=== PATIENT | female | born 1975 | race Caucasian/White ===

== ENCOUNTER 2023-02-10 20:38 | Inpatient (IN) | payer SELFPAY ==
[~2023-02-10] VITALS: Ht 165.1 cm; Wt 80.4 kg
[2023-02-10] MEDS ORDERED: TRM50T PO (20:49)
[2023-02-10] MEDS ORDERED: fentaNYL INJ 100 MCG/2 ML AMP IVP STA (20:57)
[2023-02-10] MEDS ORDERED: ONDANSETRON 4 MG/2 ML (SDV) Z0FRAN IV PRN (21:00)
[2023-02-10] MEDS ORDERED: PIPERACILLIN SODIUM/TAZOBACTAM 4.5 GM in NS (IVPB) 100 ML IV ONE (21:00)
[2023-02-10] MEDS ORDERED: LACTATED RINGERS 1,000 ML IV ONE ×3 (21:00→23:52)
[2023-02-10 21:06] LABS: BASOPHILS % (AUTO) 0 % (0-10); EOSINOPHILS # (AUTO) 0.1 10^3/uL (0.0-0.3); EOSINOPHILS % (AUTO) 0 % (0-10); HEMATOCRIT 34 % (35-52); HEMOGLOBIN 12.3 g/dL (11.5-16.0); LYMPHOCYTES # (AUTO) 1.7 10^3/uL (1.0-4.0); LYMPHOCYTES % (AUTO) 11 % (12-44); MEAN CORPUSCULAR HEMOGLOBIN 30 pg (25-34); MEAN CORPUSCULAR HGB CONC 36 g/dL (32-36); MEAN CORPUSCULAR VOLUME 83 fL (80-99); MEAN PLATELET VOLUME 10.5 fL (9.0-12.2); MONOCYTES # (AUTO) 1.1 10^3/uL (0.0-1.0); MONOCYTES % (AUTO) 8 % (0-12); NEUTROPHILS # (AUTO) 11.8 10^3/uL (1.8-7.8); NEUTROPHILS % (AUTO) 80 % (42-75); PLATELET COUNT 350 10^3/uL (130-400); WHITE BLOOD COUNT 14.8 10^3/uL (4.3-11.0)
--- NOTE | 2023-02-10 21:14 | Diagnostic Imaging Report ---
EXAMINATION: Chest 1 view. HISTORY: Short of breath. COMPARISON: None available. FINDINGS: The lungs are clear without edema or pneumonia. No pleural effusion or pneumothorax. Heart size is normal. IMPRESSION: Clear lungs. Dictated by: Dictated on workstation # [id number]
[2023-02-10] MEDS ORDERED: RT-ALBUTEROL/IPRATROPIUM 3 ML (DUONEB) VIAL INH ONE (21:15)
[2023-02-10 21:18] LABS: INR 1.1 (0.8-1.4); PROTHROMBIN TIME PATIENT 14.2 SEC (12.2-14.7)
--- NOTE | 2023-02-10 21:21 | ED Abdominal Pain ---
General Chief Complaint: Abdominal/GI Problems Stated Complaint: OBDOMINAL PAIN Nursing Triage Note: c/o left lower abdominal pain radiating to left lower back x1 week. Allergies and Home Medications Allergies Coded Allergies: No Known Drug Allergies (Unverified , 02/10/23) Patient Home Medication List Tramadol HCl (Tramadol HCl) 50 Mg Tablet, 50 MG PO Q4H PRN for PAIN, (Reported) Entered as Reported by: TOMMIE CARORLL on 02/10/232048 Last Action: New Order Past Wwumbzf-Iuvgwn-Mfxnjh Hx Patient Social History Tobacco Use?: Yes Substance use?: Yes Substance type: Marijuana Alcohol Use?: No Pt feels they are or have been: No Immunizations Up To Date First/Initial COVID19 Vaccinat: na Past Medical History Surgery/Hospitalization HX: diverticulitis, tendonitis, partial toe amputation. Last Menstrual Period: Jan 24, 2023 Physical Exam Vital Signs Vital Signs - First Documented 02/10/23 20:43 Temp 37.3 Pulse 145 Resp 22 B/P (MAP) 135/78 (97) Pulse Ox 99 O2 Delivery Room Air Capillary Refill : Less Than 3 Seconds Height/Weight/BMI Height: '" Weight: lbs. oz. kg; 26.00 BMI Method: Focused Exam Lactate Level 02/10/23 21:27: Lactic Acid Level 0.98 Lactic Acid Level Laboratory Tests Test 02/10/23 21:27 Lactic Acid Level 0.98 MMOL/L (0.50-2.00) Progress/Results/Core Measures Results/Orders Lab Results Laboratory Tests Test 02/10/23 21:00 02/10/23 21:27 02/10/23 22:20 Range/Units White Blood Count 14.8 H 4.3-11.0 10^3/uL Red Blood Count 4.07 3.80-5.11 10^6/uL Hemoglobin 12.3 11.5-16.0 g/dL Hematocrit 34 L 35-52 % Mean Corpuscular Volume 83 80-99 fL Mean Corpuscular Hemoglobin 30 25-34 pg Mean Corpuscular Hemoglobin Concent 36 32-36 g/dL Red Cell Distribution Width 12.2 10.0-14.5 % Platelet Count 350 130-400 10^3/uL Mean Platelet Volume 10.5 9.0-12.2 fL Immature Granulocyte % (Auto) 1 % Neutrophils (%) (Auto) 80 H 42-75 % Lymphocytes (%) (Auto) 11 L 12-44 % Monocytes (%) (Auto) 8 0-12 % Eosinophils (%) (Auto) 0 0-10 % Basophils (%) (Auto) 0 0-10 % Neutrophils # (Auto) 11.8 H 1.8-7.8 10^3/uL Lymphocytes # (Auto) 1.7 1.0-4.0 10^3/uL Monocytes # (Auto) 1.1 H 0.0-1.0 10^3/uL Eosinophils # (Auto) 0.1 0.0-0.3 10^3/uL Basophils # (Auto) 0.0 0.0-0.1 10^3/uL Immature Granulocyte # (Auto) 0.1 0.0-0.1 10^3/uL Prothrombin Time 14.2 12.2-14.7 SEC INR Comment 1.1 0.8-1.4 Activated Partial Thromboplast Time 33 24-35 SEC Sodium Level 131 L 135-145 MMOL/L Potassium Level 2.8 L 3.6-5.0 MMOL/L Chloride Level 98 98-107 MMOL/L Carbon Dioxide Level 17 L 21-32 MMOL/L Anion Gap 16 H 5-14 MMOL/L Blood Urea Nitrogen 8 7-18 MG/DL Creatinine 1.02 0.60-1.30 MG/DL Estimat Glomerular Filtration Rate 69 BUN/Creatinine Ratio 8 Glucose Level 124 H 70-105 MG/DL Calcium Level 9.4 8.5-10.1 MG/DL Corrected Calcium 9.5 8.5-10.1 MG/DL Magnesium Level 1.7 1.6-2.4 MG/DL Total Bilirubin 0.6 0.1-1.0 MG/DL Aspartate Amino Transf (AST/SGOT) 44 H 5-34 U/L Alanine Aminotransferase (ALT/SGPT) 56 H 0-55 U/L Alkaline Phosphatase 55 40-136 U/L Total Protein 8.0 6.4-8.2 GM/DL Albumin 3.9 3.2-4.5 GM/DL Amylase Level 39 25-125 U/L Lipase 28 8-78 U/L Serum Test, Qualitative NEGATIVE NEGATIVE Serum Alcohol < 10 <10 MG/DL Lactic Acid Level 0.98 0.50-2.00 MMOL/L Influenza Type A (RT-PCR) Not Detected Not Detecte Influenza Type B (RT-PCR) Not Detected Not Detecte SARS-CoV-2 RNA (RT-PCR) Not Detected Not Detecte Urine Color YELLOW Urine Clarity SL CLOUDY Urine pH 6.0 5-9 Urine Specific [place] <=1.005 1.016-1.022 Urine Protein NEGATIVE NEGATIVE Urine Glucose (UA) NEGATIVE NEGATIVE Urine Ketones NEGATIVE NEGATIVE Urine Nitrite NEGATIVE NEGATIVE Urine Bilirubin NEGATIVE NEGATIVE Urine Urobilinogen 0.2 < = 1.0 MG/DL Urine Leukocyte Esterase NEGATIVE NEGATIVE Urine RBC (Auto) TRACE-I H NEGATIVE Urine RBC 0-2 /HPF Urine WBC NONE /HPF Urine Squamous Epithelial Cells 2-5 /HPF Urine Crystals NONE /LPF Urine Bacteria TRACE /HPF Urine Casts NONE /LPF Urine Mucus NEGATIVE /LPF Urine Culture Indicated CULTURE PENDING Urine Opiates Screen NEGATIVE NEGATIVE Urine Oxycodone Screen NEGATIVE NEGATIVE Urine Methadone Screen NEGATIVE NEGATIVE Urine Propoxyphene Screen NEGATIVE NEGATIVE Urine Barbiturates Screen NEGATIVE NEGATIVE Ur Tricyclic Antidepressants Screen NEGATIVE NEGATIVE Urine Phencyclidine Screen NEGATIVE NEGATIVE Urine Amphetamines Screen NEGATIVE NEGATIVE Urine Methamphetamines Screen NEGATIVE NEGATIVE Urine Benzodiazepines Screen NEGATIVE NEGATIVE Urine Cocaine Screen NEGATIVE NEGATIVE Urine Cannabinoids Screen POSITIVE H NEGATIVE My Orders Orders - MATHEW REEDER DO Ed Iv/Invasive Line Start (02/10/23 20:55) Monitor-Rhythm Ecg Trace Only (02/10/23 20:55) Amylase (02/10/23 20:55) Hcg,Qualitative Serum (02/10/23 20:55) Lipase (02/10/23 20:55) Magnesium (02/10/23 20:55) Ed Iv/Invasive Line Start (02/10/23 20:55) Lactated Ringers (Lr 1000 Ml Iv Solution (02/10/23 21:00) Cbc With Automated Diff (02/10/23 20:55) Comprehensive Metabolic Panel (02/10/23 20:55) Blood Culture (02/10/23 20:55) Sputum Culture (02/10/23 20:55) Urinalysis (02/10/23 20:55) Urine Culture (02/10/23 20:55) Protime With Inr (02/10/23 20:55) Partial Thromboplastin Time (02/10/23 20:55) Chest 1 View, Ap/Pa Only (02/10/23 20:55) Ed Iv/Invasive Line Start (02/10/23 20:55) Ed Iv/Invasive Line Start (02/10/23 20:55) Vital Signs Adult Sepsis Patie Q15M (02/10/23 20:55) Ondansetron Injection (Zofran Injectio (02/10/23 21:00) O2 (02/10/23 20:55) Remove Rings In Anticipation O (02/10/23 20:55) Lactic Acid Analyzer (02/10/23 20:55) Piperacillin Sodium/Tazobactam (Zosyn Vi (02/10/23 21:00) Covid 19 Inhouse Test (02/10/23 20:55) Influenza A And B By Pcr (02/10/23 20:55) Isolation Central Supply Req (02/10/23 20:55) Ed Iv/Invasive Line Start (02/10/23 20:55) Lactated Ringers (Lr 1000 Ml Iv Solution (02/10/23 21:00) Fentanyl Inj (Sublimaze Injection) (02/10/23 20:57) Albuterol/Ipra Inhalation Soln (Duoneb I (02/10/23 21:15) Dexamethasone Injection (Decadron Injec (02/10/23 21:15) Rt Request For Service (02/10/23 21:02) Svn Small Volume Nebulizer (02/10/23 21:02) Alcohol (02/10/23 21:02) Drug Screen Stat (Urine) (02/10/23 21:02) Ct Abdomen/Pelvis W (02/10/23 21:38) Iohexol Injection (Omnipaque 350 Mg/Ml 1 (02/10/23 22:00) Sodium Chloride Flush (Catheter Flush Sy (02/10/23 22:00) Ns (Ivpb) (Sodium Chloride 0.9% Ivpb Bag (02/10/23 22:00) Morphine Injection (Morphine Injection (02/10/23 22:47) Medications Given in ED Current Medications Medications Dose Ordered Sig/Erika Route Start Time Stop Time Status Last Admin Dose Admin Albuterol/ Ipratropium 3 ml ONCE ONCE INH 02/10/23 21:15 02/10/23 21:16 DC 02/10/23 21:30 3 ML Dexamethasone Sodium Phosphate 20 mg ONCE ONCE IH 02/10/23 21:15 02/10/23 21:16 DC 02/10/23 21:30 20 MG Iohexol 100 ml ONCE ONCE IV 02/10/23 22:00 02/10/23 22:01 DC 02/10/23 21:58 80 ML Lactated Ringer's 1,000 ml @ 0 mls/hr Q0M ONCE IV 02/10/23 21:00 02/10/23 21:01 DC 02/10/23 21:20 1,000 MLS/HR Lactated Ringer's 1,000 ml @ 0 mls/hr Q0M ONCE IV 02/10/23 21:00 02/10/23 21:01 DC 02/10/23 21:20 1,000 MLS/HR Ondansetron HCl 4 mg PRN PRN IV 02/10/23 21:00 02/10/23 21:20 DC 02/10/23 21:19 4 MG Piperacillin Sod/ Tazobactam Sod 4.5 gm/Sodium Chloride 100 ml @ 200 mls/hr ONCE ONCE IV 02/10/23 21:00 02/10/23 21:29 DC 02/10/23 22:18 200 MLS/HR Sodium Chloride 10 ml NEEDED PRN IV 02/10/23 22:00 02/10/23 21:58 10 ML Sodium Chloride 100 ml ONCE ONCE IV 02/10/23 22:00 02/10/23 22:01 DC 02/10/23 21:58 80 ML Vital Signs/I&O 02/10/23 02/10/23 20:43 21:30 Temp 37.3 Pulse 145 Resp 22 B/P (MAP) 135/78 (97) Pulse Ox 99 98 O2 Delivery Room Air Room Air Blood Pressure Mean: 97 Diagnostic Imaging Comments CXR--PER RADIOLOGIST REPORT AT 2120 FINDINGS: The lungs are clear without edema or pneumonia. No pleural effusion or pneumothorax. Heart size is normal. IMPRESSION: Clear lungs. Reviewed: Reviewed by Me Departure Impression Primary Impression: Sepsis MATHEW REEDER DO Feb 10, 2023 21:21
[2023-02-10 21:25] LABS: ALBUMIN 3.9 GM/DL (3.2-4.5); POTASSIUM 2.8 MMOL/L (3.6-5.0)
[2023-02-10 21:26] LABS: CALCIUM 9.4 MG/DL (8.5-10.1)
[2023-02-10 21:29] LABS: BILIRUBIN,TOTAL 0.6 MG/DL (0.1-1.0)
[2023-02-10 21:31] LABS: CREATININE SERUM 1.02 MG/DL (0.60-1.30)
[2023-02-10 21:34] LABS: MAGNESIUM 1.7 MG/DL (1.6-2.4)
[2023-02-10] MEDS ORDERED: CATHETER FLUSH 10 ML SYR IV PRN (22:00)
[2023-02-10] MEDS ORDERED: NS 100 ML (IVPB) BAG IV ONE (22:00)
[2023-02-10] MEDS ORDERED: IOHEXOL 350 MG/ML 100 ML (OMNIPAQUE 350) VIAL IV ONE (22:00)
--- NOTE | 2023-02-10 22:06 | Diagnostic Imaging Report ---
EXAMINATION: CT abdomen and pelvis with intravenous contrast. TECHNIQUE: Multiple contiguous axial images were obtained through the abdomen and pelvis after the uneventful administration of intravenous contrast. All CT scans use one or more of the following dose optimizing techniques: automated exposure control, MA and/or KvP adjustment based on patient size and exam type or iterative reconstruction. HISTORY: Left lower quadrant pain COMPARISON: None available. FINDINGS: Limited views of the lower thorax are unremarkable. The liver is normal without focal lesion. There is no biliary ductal dilation. Gallbladder is normal. Pancreas is normal. Spleen is normal. Adrenal glands are normal. The kidneys are normal. There is no hydronephrosis. Urinary bladder is normal. There is diverticulitis of the sigmoid colon. There is a fluid and gas collection associated with the sigmoid colon wall measuring 3.2 x 4.6 cm in keeping with an abscess. Small amount of free fluid is present. No free intraperitoneal air. The remainder of the bowel is normal. No abdominal or pelvic lymphadenopathy. Aorta is normal in caliber without aneurysm. There are no suspicious osseus lesions. IMPRESSION: 1. Sigmoid diverticulitis with a 3.2 x 4.6 cm abscess adjacent to the inflamed bowel. Dictated by: Dictated on workstation # [id number]
[2023-02-10 22:34] LABS: BILIRUBIN,URINE NEGATIVE (NEGATIVE); CLARITY,URINE SL CLOUDY; COLOR,URINE YELLOW; GLUCOSE, URINE (UA) NEGATIVE (NEGATIVE); KETONES,URINE NEGATIVE (NEGATIVE); LEUKOCYTE ESTERASE ,URINE NEGATIVE (NEGATIVE); NITRITE,URINE NEGATIVE (NEGATIVE); PROTEIN,URINE NEGATIVE (NEGATIVE)
[2023-02-10 22:41] LABS: BACTERIA,URINE TRACE /HPF; RBC,URINE 0-2 /HPF
[2023-02-10] MEDS ORDERED: morphine INJ 10 MG/ML 1ML (SYR OR VIAL) IVP STA (22:47)
[2023-02-10 22:53] LABS: AMPHETAMINE SCREEN, URINE NEGATIVE (NEGATIVE); BARBITURATE SCREEN URINE NEGATIVE (NEGATIVE); BENZODIAZEPINES SCREEN URINE NEGATIVE (NEGATIVE); CANNABINOID SCREEN, URINE POSITIVE (NEGATIVE); COCAINE SCREEN URINE NEGATIVE (NEGATIVE); METHADONE STAT NEGATIVE (NEGATIVE); OPIATE SCREEN URINE NEGATIVE (NEGATIVE); OXYCODONE STAT NEGATIVE (NEGATIVE); PROPOXYPHENE STAT NEGATIVE (NEGATIVE); TRICYCLIC ANTIDEPRESSANTS SCRE NEGATIVE (NEGATIVE)
[2023-02-10] MEDS ORDERED: KCL 10 MEQ TAB (MICRO K) PO ONE (23:30)
[2023-02-10 23:36] VITALS: BP 124/67
[2023-02-11] VITALS (17 sets, daily range): BP systolic 99–138; BP diastolic 56–92
[2023-02-11] MEDS ORDERED: VANCOMYCIN 1500MG/300ML PREMIX 300 ML IV ONE (00:30)
[2023-02-11] MEDS: LACTATED RINGERS 1,000 ML IV SCH ×6 (00:37→20:13)
[2023-02-11] MEDS: morphine INJ 4 MG/ML 1 ML (VIAL/SYRINGE) IV PRN ×7 (02:48→22:34)
[2023-02-11] MEDS: PIPERACILLIN SODIUM/TAZOBACTAM 4.5 GM in NS (IVPB) 100 ML IV SCH ×3 (03:51→20:11)
[2023-02-11 05:49] LABS: BASOPHILS % (AUTO) 0 % (0-10); EOSINOPHILS % (AUTO) 0 % (0-10); HEMATOCRIT 28 % (35-52); LYMPHOCYTES # (AUTO) 0.7 10^3/uL (1.0-4.0); LYMPHOCYTES % (AUTO) 6 % (12-44); MEAN CORPUSCULAR HEMOGLOBIN 30 pg (25-34); MEAN CORPUSCULAR HGB CONC 35 g/dL (32-36); MEAN CORPUSCULAR VOLUME 85 fL (80-99); MONOCYTES # (AUTO) 0.6 10^3/uL (0.0-1.0); MONOCYTES % (AUTO) 5 % (0-12); NEUTROPHILS # (AUTO) 9.9 10^3/uL (1.8-7.8); NEUTROPHILS % (AUTO) 88 % (42-75); PLATELET COUNT 271 10^3/uL (130-400); WHITE BLOOD COUNT 11.3 10^3/uL (4.3-11.0)
[2023-02-11 06:07] LABS: ALBUMIN 2.9 GM/DL (3.2-4.5); BILIRUBIN,TOTAL 0.5 MG/DL (0.1-1.0); CALCIUM 8.6 MG/DL (8.5-10.1); CREATININE SERUM 0.79 MG/DL (0.60-1.30); POTASSIUM 4.1 MMOL/L (3.6-5.0); TOTAL PROTEIN 6.1 GM/DL (6.4-8.2)
[2023-02-11 06:40] LABS: LYMPHOCYTES % (MANUAL) 3 %; MONOCYTES % (MANUAL) 3 %; NEUTROPHILS % (MANUAL) 94 %
[2023-02-11 06:41] LABS: RBC MORPH NORMAL
--- NOTE | 2023-02-11 10:02 | History & Physical-Hospitalist ---
PAZ SANTANA 02/11/23 1002: History of Present Illness HPI/Chief Complaint Patient is a 48 year old female with history of diverticulosis and tendonitis w ho presented to the ED last night for LLQ abd pain radiating into her back. She reports being diagnosed with the flu on january 30 that caused her to be mostly bed ridden. She began to experience LLQ abd pain a week ago that has gradually worsened, She describes it as sharp in nature. She reports having a small BM yesterday with no blood. In the ED she was found to be tachycardic w/ mild leukocytosis, anion gap metabolic acidosis, hyponatrema, and hypokalemia. Toxicology was positive for canabinoids which patient endorses trying 2 weeks ago [address] [place] imaging in the ED revealed sigmoid diverticulitis w/ 3.2x4.6cm abscess adjacent to inflamed bowel. Source: patient, EMS Date Seen 02/11/23 Time Seen by a Provider: 08:55 [facility]mitting Physician: Karen Tracy DO Attending Physician: Karen Tracy DO Referring Physician Date of Admission Feb 10, 2023 at 23:18 Home Medications & Allergies Home Medications Reviewed patient Home Medication Reconciliation performed by pharmacy medication reconciliations property technician and/or nursing. Patients Allergies have been reviewed. Allergies Allergies Coded Allergies No Known Drug Allergies (Unverified02/10/23) Past Tdmdcby-Wxbyif-Jgoamm Hx Patient Social History Marrital Status: Tobacco Use?: No Tobacco type used: Cigarettes Smoking Status: Current Everyday Smoker Use of E-Cig and/or Vaping dev: No Substance use?: Yes Substance type: Marijuana Alcohol Use?: Yes Alcohol Frequency: Rarely Pt feels they are or have been: No Immunizations Up To Date First/Initial COVID19 Vaccinat: na Tetanus Booster (TDap): Unknown Current Status status: No Advance Directives: No Communicates: Verbally Primary Language: Finnish Preferred Spoken Language: Finnish Is interpretation needed?: No Implanted or Applied Medical D: None Past Medical History Surgeries: Orthopedic (Left 1st distal phalanx amputated as a child) Amputee (right 1st distal phalanx amputated as a child) Family Medical History Father: CAD, Melanoma Mother: Bipolar, CKD, Lung disease Review of Systems Constitutional: No chills, No fever EENTM: No hearing loss, No vision loss Respiratory: No cough, No dyspnea on exertion, No short of breath Cardiovascular: No chest pain, No edema Gastrointestinal: abdominal pain (LLQ), nausea, vomiting Genitourinary: No decreased output, No dysuria, No hematuria Musculoskeletal: back pain, other (Hx tendonitis in arms/hands) Skin: no symptoms reported Psychiatric/Neurological: No Symptoms Reported Physical Exam Physical Exam Vital Signs Vital Signs - First Documented 02/10/23 20:43 Temp 37.3 Pulse 145 Resp 22 B/P (MAP) 135/78 (97) Pulse Ox 99 O2 Delivery Room Air Capillary Refill : Less Than 3 Seconds Height, Weight, BMI Height: '" Weight: lbs. oz. kg; 26.19 BMI Method: General Appearance: No Apparent Distress, WD/WN, Other Eyes: Bilateral Eye PERRL, Bilateral Eye EOMI HEENT: PERRL/EOMI, Pharynx Normal, Moist Mucous Membranes Neck: Non Tender, Supple Respiratory: Lungs Clear, Normal Breath Sounds, No Accessory Muscle Use, No Respiratory Distress Cardiovascular: Regular Rate, Rhythm, No Murmur, Normal Peripheral Pulses Gastrointestinal: Normal Bowel Sounds, Other (Significant LLQ abd pain with rebound tenderness. Abd feels firm, particularly in LLQ. Not overly tender in other quadrants.) Back: Normal Inspection Extremity: Normal Capillary Refill, Non Tender, No Calf Tenderness Neurologic/Psychiatric: Alert, Oriented x3, No Motor/Sensory Deficits Skin: Normal Color, Warm/Dry Lymphatic: No Adenopathy Results Results/Procedures Labs Laboratory Tests 02/10/23 21:00 02/11/23 05:09 Patient resulted labs reviewed. Imaging NAME: JATINDER LINO [facility] REC#: [id number] PT STATUS: REG ER : 1975 PHYSICIAN: MATHEW REEDER DO ADMIT DATE: 02/10/23/ER Signed Date of Exam:02/10/23 CHEST 1 VIEW, AP/PA ONLY EXAMINATION: Chest 1 view. HISTORY: Short of breath. COMPARISON: None available. FINDINGS: The lungs are clear without edema or pneumonia. No pleural effusion or pneumothorax. Heart size is normal. IMPRESSION: Clear lungs. Dictated by: Dictated on workstation # [id number] Dict: 02/10/232109 Trans: 02/10/232206 [facility] [id number] Interpreted by: FLORINA MOTLEY MD Electronically signed by: FLORINA MOTLEY MD 02/10/232206 NAME: JATINDER LINO [facility] REC#: [id number] PT STATUS: REG ER : 1975 PHYSICIAN: MATHEW REEDER DO ADMIT DATE: 02/10/23/ER Signed Date of Exam:02/10/23 CT ABDOMEN/PELVIS W EXAMINATION: CT abdomen and pelvis with intravenous contrast. TECHNIQUE: Multiple contiguous axial images were obtained through the abdomen and pelvis after the uneventful administration of intravenous contrast. All CT scans use one or more of the following dose optimizing techniques: automated exposure control, MA and/or KvP adjustment based on patient size and exam type or iterative reconstruction. HISTORY: Left lower quadrant pain COMPARISON: None available. FINDINGS: Limited views of the lower thorax are unremarkable. The liver is normal without focal lesion. There is no biliary ductal dilation. Gallbladder is normal. Pancreas is normal. Spleen is normal. Adrenal glands are normal. The kidneys are normal. There is no hydronephrosis. Urinary bladder is normal. There is diverticulitis of the sigmoid colon. There is a fluid and gas collection associated with the sigmoid colon wall measuring 3.2 x 4.6 cm in keeping with an abscess. Small amount of free fluid is present. No free intraperitoneal air. The remainder of the bowel is normal. No abdominal or pelvic lymphadenopathy. Aorta is normal in caliber without aneurysm. There are no suspicious osseus lesions. IMPRESSION: 1. Sigmoid diverticulitis with a 3.2 x 4.6 cm abscess adjacent to the inflamed bowel. Dictated by: Dictated on workstation # [id number] Dict: 02/10/232202 Trans: 02/10/232203 [facility] [id number] Interpreted by: FLORINA MOTLEY MD Electronically signed by: FLORINA MOTLEY MD 02/10/232203 Assessment/Plan Admission Diagnosis Sepsis/Diverticulosis w/ abscess Assessment and Plan Sepsis 2nd to diverticulitis w/ abscess -Pt met SIRS criteria with tachycardia, leukocytosis, and suspsected source of infection -02/10 CT revealed sigmoi diverticulitis with 3.2x4.6cm abscess adjacent to inflamed bowel. -Vanc & Zosyn. NPO. Control Pain. Consult surgery. Metabolic acidosis w/ high anion gap -AG on admission 16. Improved to 11 this morning following abx and IVF. -Likely secondary to N/V and dehydration prior to admission. Improved at this time. Hyponatremia -Improved after IVF. Monitor Hypokalemia -2.8 on admission. 4.1 after treatment with protocol. Diet: as tolerated DVT Proph: lovenox KAREN TRACY DO 02/12/23 0622: Past Mmoqmyt-Swkili-Nvljfo Hx Patient Social History Marrital Status: Review of Systems Gastrointestinal: abdominal pain (LLQ) Physical Exam Physical Exam General Appearance: Mild Distress, Other Assessment/Plan Admission Diagnosis Admission Status: Inpatient Order (span 2 midnights) Reason for Inpatient Admission: Diverticulitis Supervisory-Addendum Brief Verification & Attestation Participated in pt care: history, MDM, physical Personally performed: exam, history, MDM, supervision of care Care discussed with: Medical Student Procedures: n/a Results interpretation: Verified all documentation Verification and Attestation of Medical Student E/M Service A medical student performed and documented this service in my presence. I r eviewed and verified all information documented by the medical student and made modifications to such information, when appropriate. I personally performed the physical exam and medical decision making. Karen Tracy, Feb 12, 2023,06:22 PAZ SANTANA Feb 11, 2023 10:02 KAREN TRACY DO Feb 12, 2023 06:22
--- NOTE | 2023-02-11 10:41 | Consultation - Surgery ---
History of Present Illness History of Present Illness Patient Consulted On(amna/time) 02/11/23 10:32 Time Seen by Provider: 09:33 History of Present Illness Surgery asked to consult regarding perforated diverticulitis. HPI per IM: Patient is a 48 year old female with history of diverticulosis and tendonitis who presented to the ED last night for LLQ abd pain radiating into her back. She reports being diagnosed with the flu on january 30 that caused her to be mostly bed ridden. She began to experience LLQ abd pain a week ago that has gradually worsened, She describes it as sharp in nature. She reports having a small BM yesterday with no blood. In the ED she was found to be tachycardic w/ mild leukocytosis, anion gap metabolic acidosis, hyponatrema, and hypokalemia. Toxicology was positive for canabinoids which patient endorses trying 2 weeks ago in [place]. CT imaging in the ED revealed sigmoid diverticulitis w/ 3.2x4.6cm abscess adjacent to inflamed bowel. When I saw pt she still was in some pain, but states it is better. She states this all started about 6 yrs ago with an attack of Diverticulitis and she wound up in the hospital. She states that since then she has had 3-4 attacks per year which usually consists of pain and then she goes on a liquid diet for 3 days. She states she tries to change her diet little bit more (avoid red meat) and she just slows down/does less work and it usually goes away. She states this time the pain started in December and this basically has never gotten better since. It actually got worse on her birthday which I believe was [birth year]. She described severe pain, could not eat, could not keep anything down. She states she was trying to work through the pain; she has a very big fear of doctors and did not want to go to the hospital and this is what kept her away. Finally the pain was so bad that she came in last night. She states the pain is in the midline to left lower quadrant it does not all over the abdomen it is slightly better since she came in with the pain medications. Allergies and Home Medications Allergies Coded Allergies: No Known Drug Allergies (Unverified , 02/10/23) Patient Home Medication List Home Medication List Reviewed: Yes Tramadol HCl (Tramadol HCl) 50 Mg Tablet, 50 MG PO Q4H PRN for PAIN, (Reported) Entered as Reported by: TOMMIE CARROLL on 02/10/232048 Last Action: New Order Past Bnnczem-Pdsaro-Ignalx Hx Patient Social History Smoking Status: Current Everyday Smoker (at least 1 ppd since she was 11) Alcohol Use?: Yes (very rare, "I usually don't finish the drink") Substance type: Marijuana Have you traveled recently?: No Surgeries History of Surgeries: Yes Surgeries: Orthopedic (Left 1st distal phalanx amputated as a child), Tubal Ligation Respiratory History of Respiratory Disorde: No Cardiovascular History of Cardiac Disorders: No Neurological History of Neurological Disord: No Genitourinary History of Genitourinary Disor: No Gastrointestinal History of Gastrointestinal Di: Yes (Diverticulitis) Musculoskeletal History of Musculoskeletal Dis: Yes Musculoskeletal Disorders: Amputee (right 1st distal phalanx amputated as a child) Endocrine History of Endocrine Disorders: No HEENT History of HEENT Disorders: No Loss of Vision: Denies Hearing Impairment: Denies Cancer History of Cancer: No Psychosocial History of Psychiatric Problem: No Family Medical History Significant Family History: Psychiatric Problems (Mother was bipolar) Review of Systems-General Constitutional: fever, malaise, weakness EENTM: No blurred vision, No double vision, No mouth swelling, No epistaxis Respiratory: No cough, No dyspnea on exertion Cardiovascular: No chest pain, No palpitations Gastrointestinal: abdominal pain; No jaundice; loss of appetite, nausea, vomiting Genitourinary: No dysuria, No frequency, No hematuria Musculoskeletal: No joint swelling, No muscle pain, No muscle stiffness Skin: No change in color, No change in hair/nails Psychiatric/Neurological: Anxiety; Denies Depressed, Denies Seizure, Denies Tremors Physical Exam-General Problems Physical Exam Vital Signs Vital Signs - First Documented 02/10/23 20:43 Temp 37.3 Pulse 145 Resp 22 B/P (MAP) 135/78 (97) Pulse Ox 99 O2 Delivery Room Air Capillary Refill : Less Than 3 Seconds General Appearance: WD/WN, mild distress (secondary to anxiety and pain) Eyes: Bilateral Eye PERRL, Bilateral Eye EOMI HEENT: pharynx normal; No scleral icterus (R), No scleral icterus (L) Neck: non-tender, supple Respiratory: chest non-tender, lungs clear, normal breath sounds, no respiratory distress, no accessory muscle use Cardiovascular: regular rate, rhythm, no murmur Gastrointestinal: soft, no organomegaly, guarding (voluntary in LLQ and suprapubic), tenderness (LLQ), hernia (small UH), other (pt does not have diffuse peritonitis) Rectal: deferred Back: no CVA tenderness, no vertebral tenderness Extremities: non-tender, no pedal edema, no calf tenderness Neurologic/Psychiatric: provider relations advocate II-XII nml as tested, no motor/sensory deficits, alert, oriented x 3, other (anxious "because I don't like doctors or the hospital") Skin: normal color, warm/dry Lymphatic: no adenopathy (neck, axilla or groin) Data Review Labs Laboratory Tests 02/10/23 21:00: White Blood Count 14.8H, Red Blood Count 4.07, Hemoglobin 12.3, Hematocrit 34L, Mean Corpuscular Volume 83, Mean Corpuscular Hemoglobin 30, Mean Corpuscular Hemoglobin Concent 36, Red Cell Distribution Width 12.2, Platelet Count 350, Mean Platelet Volume 10.5, Immature Granulocyte % (Auto) 1, Neutrophils (%) (Auto) 80H, Lymphocytes (%) (Auto) 11L, Monocytes (%) (Auto) 8, Eosinophils (%) (Auto) 0, Basophils (%) (Auto) 0, Neutrophils # (Auto) 11.8H, Lymphocytes # (Auto) 1.7, Monocytes # (Auto) 1.1H, Eosinophils # (Auto) 0.1, Basophils # (Auto) 0.0, Immature Granulocyte # (Auto) 0.1, Prothrombin Time 14.2, INR Comment 1.1, Activated Partial Thromboplast Time 33, Sodium Level 131L, Potassium Level 2.8L, Chloride Level 98, Carbon Dioxide Level 17L, Anion Gap 16H , Blood Urea Nitrogen 8, Creatinine 1.02, Estimat Glomerular Filtration Rate 69, BUN/Creatinine Ratio 8, Glucose Level 124H, Calcium Level 9.4, Corrected Calcium 9.5, Magnesium Level 1.7, Total Bilirubin 0.6, Aspartate Amino Transf (AST/SGOT) 44H, Alanine Aminotransferase (ALT/SGPT) 56H, Alkaline Phosphatase 55, Total Protein 8.0, Albumin 3.9, Amylase Level 39, Lipase 28, Serum Test, Qualitative NEGATIVE, Serum Alcohol < 10 4/6/23 21:27: Lactic Acid Level 0.98, Influenza Type A (RT-PCR) Not Detected, Influenza Type B (RT-PCR) Not Detected, SARS-CoV-2 RNA (RT-PCR) Not Detected 02/10/23 22:20: Urine Color YELLOW, Urine Clarity SL CLOUDY, Urine pH 6.0, Urine Specific Bozman <=1.005, Urine Protein NEGATIVE, Urine Glucose (UA) NEGATIVE, Urine Ketones NEGATIVE, Urine Nitrite NEGATIVE, Urine Bilirubin NEGATIVE, Urine Urobilinogen 0.2, Urine Leukocyte Esterase NEGATIVE, Urine RBC (Auto) TRACE-IH, Urine RBC 0-2, Urine WBC NONE, Urine Squamous Epithelial Cells 2-5, Urine Crystals NONE, Urine Bacteria TRACE, Urine Casts NONE, Urine Mucus NEGATIVE, Urine Culture Indicated CULTURE PENDING, Urine Opiates Screen NEGATIVE, Urine Oxycodone Screen NEGATIVE, Urine Methadone Screen NEGATIVE, Urine Propoxyphene Screen NEGATIVE, Urine Barbiturates Screen NEGATIVE, Ur Tricyclic Antidepressants Screen NEGATIVE, Urine Phencyclidine Screen NEGATIVE, Urine Amphetamines Screen NEGATIVE, Urine Methamphetamines Screen NEGATIVE, Urine Benzodiazepines Screen NEGATIVE, Urine Cocaine Screen NEGATIVE, Urine Cannabinoids Screen POSITIVEH 02/11/23 05:09: White Blood Count 11.3H, Red Blood Count 3.32L, Hemoglobin 10.0L, Hematocrit 28L , Mean Corpuscular Volume 85, Mean Corpuscular Hemoglobin 30, Mean Corpuscular Hemoglobin Concent 35, Red Cell Distribution Width 12.4, Platelet Count 271, Mean Platelet Volume 11.0, Immature Granulocyte % (Auto) 1, Neutrophils (%) (Auto) 88H, Lymphocytes (%) (Auto) 6L, Monocytes (%) (Auto) 5, Eosinophils (%) (Auto) 0, Basophils (%) (Auto) 0, Neutrophils # (Auto) 9.9H, Lymphocytes # (Auto) 0.7L, Monocytes # (Auto) 0.6, Eosinophils # (Auto) 0.0, Basophils # (Auto) 0.0, Immature Granulocyte # (Auto) 0.1, Sodium Level 140, Potassium Level 4.1, Chloride Level 109H, Carbon Dioxide Level 20L, Anion Gap 11, Blood Urea Nitrogen 7, Creatinine 0.79, Estimat Glomerular Filtration Rate 93, BUN/Creatinine Ratio 9, Glucose Level 159H, Calcium Level 8.6, Corrected Calcium 9.5, Total Bilirubin 0.5, Aspartate Amino Transf (AST/SGOT) 32, Alanine Aminotransferase (ALT/SGPT) 45, Alkaline Phosphatase 45, Total Protein 6.1L, Albumin 2.9L, Neutrophils % (Manual) 94, Lymphocytes % (Manual) 3, Monocytes % (Manual) 3, Blood Morphology Comment NORMAL Radiology Date of Exam:02/10/23 CT ABDOMEN/PELVIS W EXAMINATION: CT abdomen and pelvis with intravenous contrast. TECHNIQUE: Multiple contiguous axial images were obtained through the abdomen and pelvis after the uneventful administration of intravenous contrast. All CT scans use one or more of the following dose optimizing techniques: automated exposure control, MA and/or KvP adjustment based on patient size and exam type or iterative reconstruction. HISTORY: Left lower quadrant pain COMPARISON: None available. FINDINGS: Limited views of the lower thorax are unremarkable. The liver is normal without focal lesion. There is no biliary ductal dilation. Gallbladder is normal. Pancreas is normal. Spleen is normal. Adrenal glands are normal. The kidneys are normal. There is no hydronephrosis. Urinary bladder is normal. There is diverticulitis of the sigmoid colon. There is a fluid and gas collection associated with the sigmoid colon wall measuring 3.2 x 4.6 cm in keeping with an abscess. Small amount of free fluid is present. No free intraperitoneal air. The remainder of the bowel is normal. No abdominal or pelvic lymphadenopathy. Aorta is normal in caliber without aneurysm. There are no suspicious osseus lesions. IMPRESSION: 1. Sigmoid diverticulitis with a 3.2 x 4.6 cm abscess adjacent to the inflamed bowel. Dictated by: Dictated on workstation # [id number] Dict: 02/10/232202 Trans: 02/10/232203 [facility] [id number] Interpreted by: FLORINA MOTLEY MD Electronically signed by: FLORINA MOTLEY MD 02/10/232203 Assessment/Plan Assessment/Plan Assessment/Plan Perforated Diverticulitis Mild Anemia Hypokalemia - resolved Hyponatremia - resolved Hyperchloremia I spent about 30 minutes last night talking to Dr. Nieto regarding this patient's case and going over this CAT scan at that time. This morning I spent about 30 minutes in total discussing with patient diverticulitisl normal course, causes and surgery. A one stage versus two-stage, basically colostomy versus colon resection and primary anastomosis. I also spoke to Dr. Torrez; radiology, to coordinate her care and get her a CT-guided drainage of this abscess. Basically when I talked to the patient, I told her we are trying to avoid surgery now also because if she had it now she would need a colostomy. Instead we will try to get it drained and then hopefully she gets better. She will be n.p.o., IV fluids, IV antibiotics, pain control, antiemetics as needed and hopefully we can get her out of the hospital in a few days. She will not be able to eat for at least today and tomorrow and then will advance the diet slowly. If we get her out of the hospital she can have a 1 [address] surgery [address] road. I also discussed her care with Dr. Marie. I believe her electrolyte abnormalities are just from dehydration and the vomiting; these will resolve on their own, if she needs any replacements we can do that. JUSTIN MAN DO Feb 11, 2023 10:41
[2023-02-11] MEDS ORDERED: NS IV 1000 ML 1,000 ML IV STA (11:31)
[2023-02-11] MEDS: VANCOMYCIN 1 GM/NS 250 ML IVPB IV SCH ×2 (11:39)
[2023-02-11] MEDS ORDERED: fentaNYL INJ 100 MCG/2 ML AMP IVP ONE (11:45)
[2023-02-11] MEDS ORDERED: MIDAZOLAM 2 MG/2 ML (VERSED) VIAL IVP ONE (11:45)
[2023-02-11] MEDS ORDERED: LIDOCAINE 1% INJ 10 ML VIAL INJ ONE (11:45)
[2023-02-11] MEDS: ONDANSETRON 4 MG/2 ML (SDV) Z0FRAN IV PRN (13:40)
--- NOTE | 2023-02-11 15:33 | Diagnostic Imaging Report ---
INDICATION: ABDOMINAL ABSCESS TECHNIQUE: All CT scans use one or more of the following dose optimizing techniques: automated exposure control, MA and/or KvP adjustment based on patient size and exam type or iterative reconstruction. Patient brought to the CT suite and placed on table in the supine position. Axial imaging through the abdomen and pelvis was performed to evaluate appropriate entry site. Left lower quadrant was then prepped and draped in usual sterile fashion. The procedure was performed utilizing conscious sedation with radiology nursing and constant monitoring. Patient was given a total of 50 mcg of fentanyl intravenously. Total procedure time is 8 minutes. Small amount of 1% lidocaine was utilized for local anesthesia. The left lower quadrant pelvic abscess was percutaneously accessed using a Swift Endeavoreh needle. This was exchanged over an 035 guidewire. A 6-Burmese, 8-Burmese and 10-Burmese dilators were utilized to dilate the tract. Next, 10.5-Burmese all-purpose pigtail drain was advanced over the wire and formed in the fluid collection in the left lower quadrant. The interstiffener as well as guidewire were removed. The pigtail was formed. Purulent material was aspirated. The catheter was affixed to the patient's skin and placed to a jessica drain. The patient tolerated the procedure well and left Department in stable condition. IMPRESSION: Successful CT-guided all-purpose drain placement into the left lower quadrant abscess, utilizing conscious sedation. Dictated by: Dictated on workstation # [id number]
[2023-02-11] MEDS: ACETAMINOPHEN 500 MG TAB (TYLENOL) PO PRN (16:44)
[2023-02-12] MEDS: VANCOMYCIN 1 GM/NS 250 ML IVPB IV SCH ×4 (00:31→12:50)
[2023-02-12 03:43] VITALS: BP 108/64
[2023-02-12] MEDS: PIPERACILLIN SODIUM/TAZOBACTAM 4.5 GM in NS (IVPB) 100 ML IV SCH ×3 (03:49→19:43)
[2023-02-12] MEDS: morphine INJ 4 MG/ML 1 ML (VIAL/SYRINGE) IV PRN ×5 (03:49→22:13)
[2023-02-12 05:32] LABS: BASOPHILS % (AUTO) 0 % (0-10); EOSINOPHILS % (AUTO) 0 % (0-10); HEMATOCRIT 29 % (35-52); LYMPHOCYTES % (AUTO) 8 % (12-44); MEAN CORPUSCULAR HEMOGLOBIN 31 pg (25-34); MEAN CORPUSCULAR HGB CONC 35 g/dL (32-36); MEAN CORPUSCULAR VOLUME 87 fL (80-99); MEAN PLATELET VOLUME 10.6 fL (9.0-12.2); MONOCYTES # (AUTO) 0.4 10^3/uL (0.0-1.0); MONOCYTES % (AUTO) 3 % (0-12); NEUTROPHILS # (AUTO) 11.2 10^3/uL (1.8-7.8); NEUTROPHILS % (AUTO) 88 % (42-75); PLATELET COUNT 295 10^3/uL (130-400); WHITE BLOOD COUNT 12.8 10^3/uL (4.3-11.0)
[2023-02-12 05:51] LABS: ALBUMIN 2.7 GM/DL (3.2-4.5)
[2023-02-12] MEDS: LACTATED RINGERS 1,000 ML IV SCH ×3 (05:53→15:41)
[2023-02-12 05:54] LABS: TOTAL PROTEIN 5.9 GM/DL (6.4-8.2)
[2023-02-12 05:55] LABS: BILIRUBIN,TOTAL 0.6 MG/DL (0.1-1.0)
[2023-02-12 05:57] LABS: CREATININE SERUM 0.98 MG/DL (0.60-1.30)
--- NOTE | 2023-02-12 07:19 | Progress Note - Hospitalist ---
Subjective HPI/CC On Admission Date Seen by Provider: Feb 12, 2023 Time Seen by Provider: 11:00 Patient is a 48 year old female with history of diverticulosis and tendonitis who presented to the ED last night for LLQ abd pain radiating into her back. She reports being diagnosed with the flu on january 30 that caused her to be mostly bed ridden. She began to experience LLQ abd pain a week ago that has gradually worsened, She describes it as sharp in nature. She reports having a small BM yesterday with no blood. In the ED she was found to be tachycardic w/ mild leukocytosis, anion gap metabolic acidosis, hyponatrema, and hypokalemia. Toxicology was positive for canabinoids which patient endorses trying 2 weeks ago in [place]. CT imaging in the ED revealed sigmoid diverticulitis w/ 3.2x4.6cm abscess adjacent to inflamed bowel. Subjective/Events-last exam Pain is improved s/p CT guided drainage done yesterday No nausea Improved overall Review of Systems General: Fatigue, Malaise Focused Exam Lactate Level 02/10/23 21:27: Lactic Acid Level 0.98 Objective Exam Vital Signs Vital Signs Date Time Temp Pulse Resp B/P (MAP) Pulse Ox O2 Delivery O2 Flow Rate FiO2 02/12/23 20:26 Room Air 02/12/23 19:32 36.5 94 18 104/68 (80) 93 02/12/23 14:39 0.00 Capillary Refill : Less Than 3 Seconds General Appearance: No Apparent Distress, WD/WN, Chronically ill Respiratory: Lungs Clear, Normal Breath Sounds Cardiovascular: Regular Rate, Rhythm Gastrointestinal: Tenderness, Other (drain in place) Results/Procedures Lab Laboratory Tests 02/12/23 05:00 Patient resulted labs reviewed. Assessment/Plan Assessment and Plan Assess & Plan/Chief Complaint Sepsis 2nd to diverticulitis w/ abscess -Pt met SIRS criteria with tachycardia, leukocytosis, and suspsected source of infection -02/10 CT revealed sigmoi diverticulitis with 3.2x4.6cm abscess adjacent to inflamed bowel. s/p drainage CT guided POD # 1 -Vanc & Zosyn. NPO. Control Pain. Consult surgery. Metabolic acidosis w/ high anion gap -AG on admission 16. Improved to 11 this morning following abx and IVF. -Likely secondary to N/V and dehydration prior to admission. Improved at this time. Hyponatremia -Improved after IVF. Monitor Hypokalemia -2.8 on admission. 4.1 after treatment with protocol. Diet: as tolerated DVT Proph: ALETHEA Faulkner DO Feb 12, 2023 07:19
--- NOTE | 2023-02-12 07:35 | Progress Note - Surgery ---
DONELLJFCONSTANTINE Alejandro 02/12/23 0735: Subjective Date Seen by a Provider: Feb 12, 2023 Time Seen by a Provider: 06:48 Subjective/Events-last exam Pt is resting comfortably in bed. Pt reports improvement of abd pain today, rating it a 2/10. No signs of peritonitis on physical exam. Pt feels like she is getting adequate pain control on current pain medication. Pt does note that she feels "puffy" and slightly bloated today, minimal abd distention on exam. Pt denies BM today or yesterday. Tolerating clears without nausea or vomiting. WBC slightly increased from yesterday at 12.8 from 11.3. Pt is currently afebrile but was febrile yesterday afternoon for about an hour. Pt reports worsening of productive cough and SOB today. Pt notes that SOB and cough started ~1 week ago when she was diagnosed with the flu. Pt notes breathing treatment in ED helped relieve symptoms before. Able to ambulate to bathroom by self and void without issue. Drain placed yesterday by radiology, had 50cc of dark red brown fluid in bag today. Scant output overnight, per nurse. Abscess culture grew E Coli, will continue current antibiotics regimen. Pt denies nausea, vomiting, chills, night sweats, hematuria, and dysuria. Review of Systems General: No Chills, No Night Sweats HEENT: No Head Aches, No Eye Pain Pulmonary: Dyspnea (worse), Cough (productive; worse) Cardiovascular: No: Chest Pain, Palpitations Gastrointestinal: Abdominal Pain (improved); No: Nausea, Vomiting Genitourinary: No Dysuria, No Hematuria Musculoskeletal: No: neck pain, shoulder pain Neurological: No: Weakness, Numbness Focused Exam Lactate Level 02/10/23 21:27: Lactic Acid Level 0.98 Objective Exam Vital Signs Date Time Temp Pulse Resp B/P (MAP) Pulse Ox O2 Delivery O2 Flow Rate FiO2 02/12/23 03:43 37.3 98 18 108/64 (79) 92 Room Air 02/11/23 23:38 36.8 104 18 104/56 (72) 94 Room Air 02/11/23 20:09 37.1 96 16 106/56 (73) 95 Room Air 02/11/23 20:00 Room Air 02/11/23 19:26 37.3 103 16 99/65 (76) 93 Room Air 02/11/23 16:44 38.7 02/11/23 16:27 38.7 121 19 132/77 (95) 92 Room Air 02/11/23 12:15 104 14 131/89 (103) 99 Room Air 02/11/23 12:10 105 14 134/92 (106) 99 Room Air 02/11/23 12:05 89 16 125/79 (94) 99 Room Air 02/11/23 12:00 95 16 120/74 (89) 99 Room Air 02/11/23 11:50 95 18 120/81 (94) 97 Room Air 02/11/23 11:25 37.0 106 20 138/89 (105) 97 Room Air 02/11/23 08:00 Room Air I & O 02/12/23 07:00 Intake Total 980 ml Output Total 980 ml Balance 0 ml Capillary Refill : Less Than 3 Seconds General Appearance: No Apparent Distress, WD/WN HEENT: PERRL/EOMI, Moist Mucous Membranes Neck: Non Tender, Supple Respiratory: No Accessory Muscle Use, No Respiratory Distress, Wheezing (diffuse inspiratory wheexing B/L; slight decreased lung sound R mid and base) Cardiovascular: No Gallop, No Murmur, Normal Peripheral Pulses, Tachycardia Peripheral Pulses: 2+ Dorsalis Pedis (R), 2+ Left Dors-Pedis (L) Gastrointestinal: soft, no organomegaly, distended (minimal), tenderness (lower quadrants; worse suprapubic and LLQ), hernia (small UH), other (pt does not show signs of diffuse peritonitis; drain in place LLQ) Extremity: No Calf Tenderness, No Pedal Edema Neurologic/Psychiatric: Alert, Oriented x3 Skin: Normal Color, Warm/Dry Lymphatic: No Adenopathy Results Lab Laboratory Tests 02/12/23 05:00: White Blood Count 12.8H, Red Blood Count 3.27L, Hemoglobin 10.0L, Hematocrit 29L , Mean Corpuscular Volume 87, Mean Corpuscular Hemoglobin 31, Mean Corpuscular Hemoglobin Concent 35, Red Cell Distribution Width 12.7, Platelet Count 295, Mean Platelet Volume 10.6, Immature Granulocyte % (Auto) 1, Neutrophils (%) (Auto) 88H, Lymphocytes (%) (Auto) 8L, Monocytes (%) (Auto) 3, Eosinophils (%) (Auto) 0, Basophils (%) (Auto) 0, Neutrophils # (Auto) 11.2H, Lymphocytes # (Auto) 1.0, Monocytes # (Auto) 0.4, Eosinophils # (Auto) 0.0, Basophils # (Auto) 0.0, Immature Granulocyte # (Auto) 0.1, Sodium Level 138, Potassium Level 4.0, Chloride Level 109H, Carbon Dioxide Level 22, Anion Gap 7, Blood Urea Nitrogen 8, Creatinine 0.98, Estimat Glomerular Filtration Rate 72, BUN/Creatinine Ratio 8, Glucose Level 109H, Calcium Level 8.0L, Corrected Calcium 9.0, Total Bilirubin 0.6, Aspartate Amino Transf (AST/SGOT) 21, Alanine Aminotransferase (ALT/SGPT) 31, Alkaline Phosphatase 53, Total Protein 5.9L, Albumin 2.7L Microbiology 02/10/23 Urine Culture - Preliminary, Resulted Slight Growth Present 02/10/23 Blood Culture - Preliminary, Resulted No growth Assessment/Plan Assessment/Plan Assessment/Plan Perforated Diverticulitis with abscess Leukocytosis Abd pain- improved UTI- Lactobacillus species No signs of peritonitis on physical exam, improvement of pain today and was able to go longer in between pain medication doses last evening to this morning. Drain output of ~50cc since placement yesterday. WBC slightly elevated but remains afebrile. No indications for surgery at this time but will continue to monitor. Repeat imaging in a few days to check abscess. continue IV Zosyn and Vancomycin Decrease IVF from 150 to 125mls/hr due to peripheral edema pain control prn anti-emetics prn Sips of clears Encourage ambulation Consider breathing treatment for SOB/wheezing and IS LUCILA MALDONADO DO 02/12/23 1354: Subjective Subjective/Events-last exam Patient feeling better since drain was placed. Feels bloated though. Pain controlled for the most part. Has regular food at bedside. Denies n/v fever sweats chills shortness of breath or chest pain at this time. Objective Exam General Appearance: No Apparent Distress, WD/WN HEENT: PERRL/EOMI, Moist Mucous Membranes Neck: Non Tender, Supple Respiratory: Chest Non Tender, No Accessory Muscle Use, No Respiratory Distress Cardiovascular: No JVD, Tachycardia Gastrointestinal: soft, distended (minimal), tenderness (lower quadrants; worse suprapubic and LLQ), hernia (small UH), other ( drain in place LLQ) Extremity: No Calf Tenderness, No Pedal Edema Neurologic/Psychiatric: Alert, Oriented x3 Skin: Normal Color, Warm/Dry Lymphatic: No Adenopathy Assessment/Plan Assessment/Plan Assessment/Plan Perforated Diverticulitis with abscess Leukocytosis Abd pain- improved UTI- Lactobacillus species No signs of peritonitis on physical exam, improvement of pain today and was able to go longer in between pain medication doses last evening to this morning. Drain output of ~50cc since placement yesterday. WBC slightly elevated but remains afebrile. No indications for surgery at this time but will continue to monitor. Repeat imaging in a few days to check abscess. continue IV Zosyn and Vancomycin Decrease IVF from 150 to 125mls/hr due to peripheral edema pain control prn anti-emetics prn Sips of clears Encourage ambulation Supervisory-Addendum Brief Verification & Attestation Participated in pt care: history, MDM, physical Personally performed: exam, history, MDM, supervision of care Care discussed with: Medical Student Procedures: n/a Results interpretation: Verified all documentation Verification and Attestation of Medical Student E/M Service A medical student performed and documented this service in my presence. I reviewed and verified all information documented by the medical student and made modifications to such information, when appropriate. I personally performed the physical exam and medical decision making. Lucila Maldonado, Feb 12, 2023,13:56 CONSTANTINE FRIAS Feb 12, 2023 07:35 LUCILA MALDONADO DO Feb 12, 2023 13:54
[2023-02-12 08:01] VITALS: BP 107/69
[2023-02-12] MEDS ORDERED: TROUGH ORDER-PHARMACY XX ONE (11:30)
[2023-02-12 11:52] VITALS: BP 122/70
[2023-02-12] MEDS: ENOXAPARIN 40 MG/0.4 ML (LOVENOX) SYR SC SCH (12:50)
[2023-02-12] MEDS: ACETAMINOPHEN 500 MG TAB (TYLENOL) PO PRN (15:44)
[2023-02-12 16:23] VITALS: BP 118/78
[2023-02-12 17:13] VITALS: BP 110/71
[2023-02-12 19:32] VITALS: BP 104/68
[2023-02-13] VITALS: BP 119/68
[2023-02-13 03:57] VITALS: BP 128/71
[2023-02-13] MEDS: PIPERACILLIN SODIUM/TAZOBACTAM 4.5 GM in NS (IVPB) 100 ML IV SCH ×3 (03:59→19:53)
[2023-02-13] MEDS: LACTATED RINGERS 1,000 ML IV SCH ×2 (04:01→14:15)
[2023-02-13 05:35] LABS: BASOPHILS % (AUTO) 0 % (0-10); EOSINOPHILS % (AUTO) 0 % (0-10); HEMATOCRIT 27 % (35-52); HEMOGLOBIN 9.2 g/dL (11.5-16.0); LYMPHOCYTES # (AUTO) 1.1 10^3/uL (1.0-4.0); LYMPHOCYTES % (AUTO) 9 % (12-44); MEAN CORPUSCULAR HEMOGLOBIN 30 pg (25-34); MEAN CORPUSCULAR HGB CONC 34 g/dL (32-36); MEAN CORPUSCULAR VOLUME 88 fL (80-99); MEAN PLATELET VOLUME 10.8 fL (9.0-12.2); MONOCYTES # (AUTO) 0.7 10^3/uL (0.0-1.0); MONOCYTES % (AUTO) 6 % (0-12); NEUTROPHILS # (AUTO) 10.8 10^3/uL (1.8-7.8); NEUTROPHILS % (AUTO) 84 % (42-75); PLATELET COUNT 298 10^3/uL (130-400); WHITE BLOOD COUNT 12.8 10^3/uL (4.3-11.0)
[2023-02-13 05:46] LABS: ALBUMIN 2.5 GM/DL (3.2-4.5); POTASSIUM 3.2 MMOL/L (3.6-5.0)
[2023-02-13 05:48] LABS: CALCIUM 7.9 MG/DL (8.5-10.1)
[2023-02-13 05:49] LABS: TOTAL PROTEIN 5.6 GM/DL (6.4-8.2)
[2023-02-13 05:51] LABS: BILIRUBIN,TOTAL 0.6 MG/DL (0.1-1.0)
[2023-02-13 05:52] LABS: CREATININE SERUM 1.39 MG/DL (0.60-1.30)
--- NOTE | 2023-02-13 06:01 | Progress Note - Hospitalist ---
Subjective HPI/CC On Admission Date Seen by Provider: Feb 13, 2023 Time Seen by Provider: 09:00 Patient is a 48 year old female with history of diverticulosis and tendonitis who presented to the ED last night for LLQ abd pain radiating into her back. She reports being diagnosed with the flu on january 30 that caused her to be mostly bed ridden. She began to experience LLQ abd pain a week ago that has gradually worsened, She describes it as sharp in nature. She reports having a small BM yesterday with no blood. In the ED she was found to be tachycardic w/ mild leukocytosis, anion gap metabolic acidosis, hyponatrema, and hypokalemia. Toxicology was positive for canabinoids which patient endorses trying 2 weeks ago in [place]. CT imaging in the ED revealed sigmoid diverticulitis w/ 3.2x4.6cm abscess adjacent to inflamed bowel. Subjective/Events-last exam Doing better Less pain Flushed drain now draining a lot more and helping with pain Labs improved Review of Systems General: Fatigue, Malaise Focused Exam Lactate Level 02/10/23 21:27: Lactic Acid Level 0.98 Objective Exam Vital Signs Vital Signs Date Time Temp Pulse Resp B/P (MAP) Pulse Ox O2 Delivery O2 Flow Rate FiO2 02/13/23 11:32 36.2 78 18 116/72 (87) 97 Room Air 02/12/23 14:39 0.00 Capillary Refill : Less Than 3 Seconds General Appearance: No Apparent Distress, WD/WN, Chronically ill Respiratory: Lungs Clear, Normal Breath Sounds Cardiovascular: Regular Rate, Rhythm Neurologic/Psychiatric: Alert, Oriented x3, No Motor/Sensory Deficits, Normal Mood/Affect Results/Procedures Lab Laboratory Tests 02/13/23 05:02 Patient resulted labs reviewed. Assessment/Plan Assessment and Plan Assess & Plan/Chief Complaint Sepsis 2nd to diverticulitis w/ abscess -Pt met SIRS criteria with tachycardia, leukocytosis, and suspsected source of infection -02/10 CT revealed sigmoi diverticulitis with 3.2x4.6cm abscess adjacent to inflamed bowel. s/p drainage CT guided POD # 1 -Vanc & Zosyn. NPO. Control Pain. Consult surgery. Metabolic acidosis w/ high anion gap -AG on admission 16. Improved to 11 this morning following abx and IVF. -Likely secondary to N/V and dehydration prior to admission. Improved at this time. Hyponatremia -Improved after IVF. Monitor Hypokalemia -2.8 on admission. 4.1 after treatment with protocol. Diet: as tolerated DVT Proph: ALETHEA Faulkner DO Feb 13, 2023 06:01
[2023-02-13] MEDS: ACETAMINOPHEN 500 MG TAB (TYLENOL) PO PRN ×2 (07:27→16:18)
[2023-02-13] MEDS: KETOROLAC 30 MG/ML VIAL IVP PRN ×2 (07:27→16:18)
[2023-02-13] MEDS: morphine INJ 4 MG/ML 1 ML (VIAL/SYRINGE) IV PRN ×4 (07:27→21:47)
--- NOTE | 2023-02-13 07:28 | Progress Note - Surgery ---
DONELLFROYCONSTANTINE TATE 02/13/23 0728: Subjective Date Seen by a Provider: Feb 13, 2023 Time Seen by a Provider: 07:00 Subjective/Events-last exam Pt is sitting in up in bed watching TV. Pt reports been no change in abd pain today, rating it a 3/10. No signs of peritonitis on physical exam and pt states that she feels like her abd feels less tender on physical exam. Required less pain medication yesterday into today. Drain had ~55cc output total yesterday and had ~10cc of reddish brown liquid present this morning. WBC unchanged from yesterday at 12.8. Pt was febrile yesterday evening for ~1hr but resolved after pt was given tylenol. Currently afebile. Pt denies BM but has had flatus through day. Pt notes improvement of bloating and swelling of arms today after decreasing IVF. Tolerating sips of clears and voiding without issue. Pt was able to ambulate to chair yesterday and states that she will try and walk today. Pt started her menstrual cycle today. Pt denies CP, SOB, nausea, vomiting, cough, dysuria, chills, and sweats. Review of Systems General: No Chills, No Night Sweats HEENT: No Head Aches, No Eye Pain Pulmonary: No Dyspnea, No Cough Cardiovascular: No: Chest Pain, Lt Headedness Gastrointestinal: Abdominal Pain (no change from yesterday); No: Nausea, Vomiting Genitourinary: No Dysuria, No Incontinence Musculoskeletal: No: neck pain, shoulder pain Neurological: No: Weakness, Numbness Focused Exam Lactate Level 02/10/23 21:27: Lactic Acid Level 0.98 Objective Exam Vital Signs Date Time Temp Pulse Resp B/P (MAP) Pulse Ox O2 Delivery O2 Flow Rate FiO2 02/13/23 03:57 37.5 96 18 128/71 (90) 92 Room Air 02/13/23 00:00 37.3 95 18 119/68 (85) 92 Room Air 02/12/23 20:26 Room Air 02/12/23 19:32 36.5 94 18 104/68 (80) 93 Room Air 02/12/23 17:13 37.5 95 18 110/71 (84) 93 Room Air 02/12/23 17:12 37.5 02/12/23 16:23 38.0 112 18 118/78 (91) 93 Room Air 02/12/23 15:44 38.0 02/12/23 14:39 Room Air 0.00 02/12/23 11:52 37.5 107 18 122/70 (87) 96 Room Air 02/12/23 08:01 37.2 103 18 107/69 (82) 94 Non Rebreather 02/12/23 08:00 94 Room Air I & O 02/13/23 07:00 Intake Total 1840 ml Output Total 55 ml Balance 1785 ml Capillary Refill : Less Than 3 Seconds General Appearance: No Apparent Distress, WD/WN HEENT: PERRL/EOMI, Moist Mucous Membranes Neck: Non Tender, Supple Respiratory: Lungs Clear, Normal Breath Sounds, No Accessory Muscle Use, No Respiratory Distress Cardiovascular: No Gallop, No Murmur, Tachycardia Peripheral Pulses: 2+ Dorsalis Pedis (R), 2+ Left Dors-Pedis (L) Gastrointestinal: soft, tenderness (lower quadrants; worse suprapubic and LLQ; overall improved when compared to last exam), hernia (small UH), other ( drain in place LLQ) Extremity: No Calf Tenderness, No Pedal Edema Neurologic/Psychiatric: Alert, Oriented x3 Skin: Normal Color, Warm/Dry Lymphatic: No Adenopathy Results Lab Laboratory Tests 02/12/23 11:32: Vancomycin Level Trough 12.9 02/13/23 05:02: White Blood Count 12.8H, Red Blood Count 3.09L, Hemoglobin 9.2L, Hematocrit 27L, Mean Corpuscular Volume 88, Mean Corpuscular Hemoglobin 30, Mean Corpuscular Hemoglobin Concent 34, Red Cell Distribution Width 13.0, Platelet Count 298, Mean Platelet Volume 10.8, Immature Granulocyte % (Auto) 1, Neutrophils (%) (Auto) 84H, Lymphocytes (%) (Auto) 9L, Monocytes (%) (Auto) 6, Eosinophils (%) (Auto) 0, Basophils (%) (Auto) 0, Neutrophils # (Auto) 10.8H, Lymphocytes # (Auto) 1.1, Monocytes # (Auto) 0.7, Eosinophils # (Auto) 0.0, Basophils # (Auto) 0.0, Immature Granulocyte # (Auto) 0.1, Sodium Level 141, Potassium Level 3.2L, Chloride Level 110H, Carbon Dioxide Level 21, Anion Gap 10, Blood Urea Nitrogen 11, Creatinine 1.39H, Estimat Glomerular Filtration Rate 47, BUN/Creatinine Ratio 8, Glucose Level 96, Calcium Level 7.9L, Corrected Calcium 9.1, Total Bilirubin 0.6, Aspartate Amino Transf (AST/SGOT) 15, Alanine Aminotransferase (ALT/SGPT) 21, Alkaline Phosphatase 58, Total Protein 5.6L, Albumin 2.5L Microbiology 02/11/23 Gram Stain - Final, Resulted 02/11/23 Anaerobic Culture, Resulted Pending 02/11/23 Surgical Culture - Preliminary, Resulted Escherichia coli 02/10/23 Urine Culture - Final, Complete Lactobacillus species 02/10/23 Blood Culture - Preliminary, Resulted No growth Assessment/Plan Assessment/Plan Assessment/Plan Perforated Diverticulitis with abscess Leukocytosis Abd pain- improved UTI- Lactobacillus species No signs of peritonitis on physical exam, improvement of pain on physical exam today and was able to go longer in between pain medication doses yesterday to this morning. Drain output of ~65cc since placement. WBC unchanged at 12.8. Pt experienced fever yesterday evening but resolved with tylenol and currently remains afebrile. No indications for surgery at this time but will continue to monitor. Repeat imaging in a few days to check abscess. continue IV Zosyn and Vancomycin Continue IVF at 100mls/hr pain control prn anti-emetics prn Sips of clears Encourage ambulation IS use LUCILA MALDONADO DO 02/13/232151: Subjective Subjective/Events-last exam Still with abdominal pain as yesterday and rates at 3/10. Less bloating after switching to clears. States had fever last night which resolved. WBC unchanged. Denies n/v fever sweats chill shortness of breath or chest pain at this time. Objective Exam General Appearance: No Apparent Distress, WD/WN HEENT: PERRL/EOMI, Normal ENT Inspection Neck: Non Tender, Supple Respiratory: Chest Non Tender, No Accessory Muscle Use, No Respiratory Distress Cardiovascular: Regular Rate, Rhythm, No JVD Gastrointestinal: soft, tenderness (lower quadrants; worse suprapubic and LLQ; overall improved when compared to last exam), hernia (small UH), other ( drain in place LLQ) Extremity: No Calf Tenderness Neurologic/Psychiatric: Alert, Oriented x3 Skin: Normal Color, Warm/Dry Lymphatic: No Adenopathy Assessment/Plan Assessment/Plan Assessment/Plan Perforated Diverticulitis with abscess Leukocytosis Abd pain- improved UTI- Lactobacillus species No signs of peritonitis on physical exam, improvement of pain on physical exam today and was able to go longer in between pain medication doses yesterday to this morning. Drain output of ~65cc since placement. WBC unchanged at 12.8. Pt experienced fever yesterday evening but resolved with tylenol and currently remains afebrile. No indications for surgery at this time but will continue to monitor. Repeat imaging in a few days to check abscess. continue IV Zosyn and Vancomycin Continue IVF pain control prn anti-emetics prn Sips of clears Encourage ambulation IS use Continue with conservative management May need repeat imaging. Understands posibility of still needing surgery. Supervisory-Addendum Brief Verification & Attestation Participated in pt care: history, MDM, physical Personally performed: exam, history, MDM, supervision of care Care discussed with: Medical Student Procedures: n/a Results interpretation: Verified all documentation Verification and Attestation of Medical Student E/M Service A medical student performed and documented this service in my presence. I reviewed and verified all information documented by the medical student and made modifications to such information, when appropriate. I personally performed the physical exam and medical decision making. Lucila Maldonado, Feb 13, 2023,21:52 CONSTANTINE FRIAS Feb 13, 2023 07:28 LUCILA MALDONADO DO Feb 13, 2023 21:52
[2023-02-13 07:29] VITALS: BP 114/76
[2023-02-13 11:32] VITALS: BP 116/72
[2023-02-13] MEDS: VANCOMYCIN 1 GM/NS 250 ML IVPB IV SCH ×4 (12:02)
[2023-02-13] MEDS: ENOXAPARIN 40 MG/0.4 ML (LOVENOX) SYR SC SCH (12:03)
[2023-02-13] MEDS ORDERED: KCL 20 MEQ TAB (K-DUR) PO NR ×2 (14:00→18:00)
[2023-02-13 16:56] VITALS: BP 114/73
[2023-02-13 19:26] VITALS: BP 109/55
[2023-02-14] VITALS: BP 127/60
[2023-02-14] MEDS: VANCOMYCIN 1 GM/NS 250 ML IVPB IV SCH ×2 (01:04)
[2023-02-14] MEDS: morphine INJ 4 MG/ML 1 ML (VIAL/SYRINGE) IV PRN ×7 (01:31→22:58)
[2023-02-14] MEDS: LACTATED RINGERS 1,000 ML IV SCH ×3 (01:43→19:58)
[2023-02-14] MEDS: PIPERACILLIN SODIUM/TAZOBACTAM 4.5 GM in NS (IVPB) 100 ML IV SCH ×3 (04:31→19:58)
[2023-02-14 04:36] VITALS: BP 125/63
[2023-02-14] MEDS: KETOROLAC 30 MG/ML VIAL IVP PRN ×3 (04:37→19:58)
[2023-02-14 06:03] LABS: BASOPHILS % (AUTO) 0 % (0-10); EOSINOPHILS # (AUTO) 0.1 10^3/uL (0.0-0.3); EOSINOPHILS % (AUTO) 1 % (0-10); HEMATOCRIT 26 % (35-52); LYMPHOCYTES # (AUTO) 0.9 10^3/uL (1.0-4.0); LYMPHOCYTES % (AUTO) 7 % (12-44); MEAN CORPUSCULAR HEMOGLOBIN 30 pg (25-34); MEAN CORPUSCULAR HGB CONC 35 g/dL (32-36); MEAN CORPUSCULAR VOLUME 88 fL (80-99); MEAN PLATELET VOLUME 10.5 fL (9.0-12.2); MONOCYTES # (AUTO) 0.7 10^3/uL (0.0-1.0); MONOCYTES % (AUTO) 6 % (0-12); NEUTROPHILS # (AUTO) 10.6 10^3/uL (1.8-7.8); NEUTROPHILS % (AUTO) 86 % (42-75); PLATELET COUNT 318 10^3/uL (130-400); WHITE BLOOD COUNT 12.4 10^3/uL (4.3-11.0)
[2023-02-14 06:22] LABS: ALBUMIN 2.4 GM/DL (3.2-4.5); BILIRUBIN,TOTAL 0.5 MG/DL (0.1-1.0); CREATININE SERUM 1.32 MG/DL (0.60-1.30); POTASSIUM 3.4 MMOL/L (3.6-5.0); TOTAL PROTEIN 5.8 GM/DL (6.4-8.2)
[2023-02-14 06:31] LABS: ATYPICAL LYMPHOCYTES 2 %; LYMPHOCYTES % (MANUAL) 9 %; MONOCYTES % (MANUAL) 8 %; NEUTROPHILS % (MANUAL) 81 %
[2023-02-14 06:32] LABS: PLATELET ESTIMATE Adequate; RBC MORPH Normal
[2023-02-14 07:54] VITALS: BP 128/77
[2023-02-14] MEDS: ACETAMINOPHEN 500 MG TAB (TYLENOL) PO PRN ×3 (08:26→22:55)
--- NOTE | 2023-02-14 09:06 | Progress Note - Surgery ---
ISAURO MENDEZ 02/14/23 0906: Subjective Date Seen by a Provider: Feb 14, 2023 Time Seen by a Provider: 07:35 Subjective/Events-last exam Pt was seen with nursing staff today with complaints of severe chills, dysuria, and dry mouth. she says she still has the abdominal pain in her lower left alena drant where they have the drain, and that the pain today after flushing it is an 8/10. Nursing says that the drain has been getting crusted over and clogged and that they havent been able to flush as frequently as was prescribed due to her severe intolerance to the discomfort. The drain was flushed 2x yesterday, pt mentioned that she is also on her period and thinks that could be adding to her discomfort. She denies pain anywhere else other than her abd, denies n/v/d/, diaphoresis, fever, chest pain, SOB, or headaches. She is having small bowel movements which she described as intially hard and pea like, which have been progressively becoming softer, described as a yellowish brown. Review of Systems General: Chills; No Night Sweats; Fatigue; No Malaise, No Appetite HEENT: No Head Aches, No Visual Changes, No Dysphasia Pulmonary: No Dyspnea, No Cough, No Pleuritic Chest Pain Cardiovascular: No: Chest Pain, Palpitations, Edema, Lt Headedness Gastrointestinal: Abdominal Pain; No: Nausea, Vomiting, Diarrhea, Constipation Genitourinary: Dysuria; No Incontinence, No Hematuria Musculoskeletal: No: other, neck pain, shoulder pain, arm pain, back pain, hand pain, leg pain, foot pain Neurological: No: Numbness, Change in speech, Confusion Objective Exam Vital Signs Date Time Temp Pulse Resp B/P (MAP) Pulse Ox O2 Delivery O2 Flow Rate FiO2 02/14/23 07:54 36.6 93 18 128/77 (94) 96 Room Air 02/14/23 05:51 36.9 02/14/23 04:36 38.2 91 18 125/63 (83) 95 Room Air 02/14/23 00:00 37.5 90 18 127/60 (82) 96 Room Air 02/13/23 19:57 Room Air 02/13/23 19:26 37.0 87 17 109/55 (73) 96 Room Air 02/13/23 16:56 37.2 81 18 114/73 (87) 97 Room Air 02/13/23 11:32 36.2 78 18 116/72 (87) 97 Room Air I & O 02/14/23 07:00 Intake Total 2880 ml Output Total 80 ml Balance 2800 ml Capillary Refill : Less Than 3 Seconds General Appearance: Anxious, Mild Distress, Obese HEENT: PERRL/EOMI, Pale Conjunctivae (L), Pale Conjunctivae (R) Neck: Non Tender, Supple Respiratory: Chest Non Tender, No Accessory Muscle Use, No Respiratory Distress Cardiovascular: Regular Rate, Rhythm, No Edema, No Murmur Peripheral Pulses: 2+ Dorsalis Pedis (R), 2+ Left Dors-Pedis (L), 2+ Radial Pulses (R), 2+ Radial Pulses (L) Gastrointestinal: soft, tenderness (lower quadrants; worse suprapubic and LLQ; overall improved when compared to last exam), hernia (small UH), other ( drain in place LLQ (mildly erythematous surrounding bandaging)) Extremity: No Calf Tenderness, No Pedal Edema Neurologic/Psychiatric: Alert, Oriented x3 Skin: Warm/Dry; No Diaphoresis; Mottled (b/l knees) Lymphatic: No Adenopathy (cervical) Results Lab Laboratory Tests 02/14/23 05:36: White Blood Count 12.4H, Red Blood Count 2.98L, Hemoglobin 9.0L, Hematocrit 26L, Mean Corpuscular Volume 88, Mean Corpuscular Hemoglobin 30, Mean Corpuscular Hemoglobin Concent 35, Red Cell Distribution Width 13.2, Platelet Count 318, Mean Platelet Volume 10.5, Immature Granulocyte % (Auto) 1, Neutrophils (%) (Auto) 86H, Lymphocytes (%) (Auto) 7L, Monocytes (%) (Auto) 6, Eosinophils (%) (Auto) 1, Basophils (%) (Auto) 0, Neutrophils # (Auto) 10.6H, Lymphocytes # (Auto) 0.9L, Monocytes # (Auto) 0.7, Eosinophils # (Auto) 0.1, Basophils # (Auto) 0.0, Immature Granulocyte # (Auto) 0.1, Neutrophils % (Manual) 81, Lymphocytes % (Manual) 9, Monocytes % (Manual) 8, Atypical Lymphocytes 2, Platelet Estimate Adequate, Blood Morphology Comment Normal, Sodium Level 139, Potassium Level 3.4L, Chloride Level 110H, Carbon Dioxide Level 18L, Anion Gap 11, Blood Urea Nitrogen 13, Creatinine 1.32H, Estimat Glomerular Filtration Rate 50, BUN/Creatinine Ratio 10, Glucose Level 94, Calcium Level 8.0L, Corrected Calcium 9.3, Total Bilirubin 0.5, Aspartate Amino Transf (AST/SGOT) 18, Alanine Aminotransferase (ALT/SGPT) 19, Alkaline Phosphatase 58, Total Protein 5.8L, Albumin 2.4L Microbiology 02/11/23 Gram Stain - Final, Resulted 02/11/23 Anaerobic Culture, Resulted Pending 02/11/23 Surgical Culture - Preliminary, Resulted Escherichia coli Mixed Bacterial Roberta 02/10/23 Urine Culture - Final, Complete Lactobacillus species 02/10/23 Blood Culture - Preliminary, Resulted No growth Assessment/Plan Assessment/Plan Assessment/Plan Perforated Diverticulitis with abscess * Drain output of ~30cc today * Drain flushing q8hrs Leukocytosis (12.4 decreased from 12.8) * UTI- Lactobacillus species * pelvic abcess (+) E. Coli * continue IV Zosyn and Vancomycin * Continue IVF * Repeat imaging in a few days to check abscess. Abd pain * pain control prn * anti-emetics prn Paroxysmal fevering stabilized with tylenol. Currently remains afebrile. No indications for surgery at this time but will continue to monitor. Sips of clears Encourage ambulation IS use Continue with conservative management Understands possibility of still needing surgery. JUSTIN DE OLIVEIRA DO 02/14/23 1332: Subjective Time Seen by a Provider: 12:26 Subjective/Events-last exam Pt seen and examined, states she is just not improving like she thought she would. Still with moderate pain and can't really take more than the liquids. States this am she felt really bad, "chills, pain, I thought I wasn't going to make it". Flushing the catheter is the worst for her. Review of Systems General: Chills; No Night Sweats; Fatigue Pulmonary: No Dyspnea, No Cough Cardiovascular: No: Chest Pain, Palpitations Gastrointestinal: Abdominal Pain; No: Nausea, Vomiting Genitourinary: Dysuria Objective Exam General Appearance: Anxious, Mild Distress HEENT: PERRL/EOMI, Moist Mucous Membranes Respiratory: Chest Non Tender, Lungs Clear, Normal Breath Sounds, No Accessory Muscle Use, No Respiratory Distress Cardiovascular: Regular Rate, Rhythm, No Murmur Gastrointestinal: soft, no organomegaly; No distended; tenderness (lower quadrants; worse suprapubic and LLQ; overall improved when compared to last exam), hernia (small UH), other ( drain in place LLQ (mildly erythematous surrounding bandaging)) Extremity: No Calf Tenderness, Pedal Edema (+2 pitting edema B/L below knees), Other (no longer has any mottling) Neurologic/Psychiatric: Alert, Oriented x3 Assessment/Plan Assessment/Plan Assessment/Plan Perforated Diverticulitis with abscess * Drain output of ~30cc today, looks purulent and possibly feculent * Continue to flush drain q8hrs Leukocytosis (12.4 decreased from 12.8) * UTI- Lactobacillus species * pelvic abcess (+) E. Coli * continue IV Zosyn, will add Flagyl and D/C Vancomycin * Continue IVF * Repeat imaging in a few days to check abscess. Paroxysmal fevering stabilized with tylenol. Currently remains afebrile. Encourage PO liquids and ambulation, increase IS use Continue with conservative management, I talked to her about the fact that I don't like what is in the drain and she does not seem to improving like she should, there is now a greater possibility of still needing surgery. Supervisory-Addendum Brief Verification & Attestation Participated in pt care: history, MDM, physical Personally performed: exam, history, MDM, supervision of care Care discussed with: Medical Student Procedures: n/a Results interpretation: Verified all documentation Verification and Attestation of Medical Student E/M Service A medical student performed and documented this service. I then reviewed and verified all information documented by the medical student and made modifications to such information, when appropriate. I personally performed a physical exam, medical decision making and then discussed any differences between the notes and made revisions as necessary to create one note. Justin De Oliveira , 02/14/23 , 13:32 ISAURO MENDEZ Feb 14, 2023 09:06 JUSTIN DE OLIVEIRA DO Feb 14, 2023 13:32
[2023-02-14] MEDS: ENOXAPARIN 40 MG/0.4 ML (LOVENOX) SYR SC SCH (10:38)
[2023-02-14 11:44] VITALS: BP 131/78
[2023-02-14] MEDS: metroNIDAZOLE 500MG/100ML IVPB 100 ML IV SCH (15:10)
--- NOTE | 2023-02-14 15:28 | Progress Note ---
Subjective Subjective/Events-last exam States that she is still having quite a bit of pain. Unable to tolerate anything but liquids. Tolerating ambulation. Review of Systems General: Chills, Malaise Pulmonary: No Dyspnea, No Cough Cardiovascular: No: Chest Pain, Palpitations Gastrointestinal: Abdominal Pain Neurological: Weakness Objective Exam Last Set of Vital Signs Vital Signs Date Time Temp Pulse Resp B/P (MAP) Pulse Ox O2 Delivery O2 Flow Rate FiO2 02/14/23 11:44 36.6 93 18 131/78 (95) 95 Room Air 02/12/23 14:39 0.00 Capillary Refill : Less Than 3 Seconds I&O Intake and Output 02/14/23 00:00 Intake Total 2680 ml Output Total 60 ml Balance 2620 ml Intake Oral 2680 ml Drainage Total 60 ml # Voids 9 # Bowel Movements 2 General: Alert, Oriented X3, No Acute Distress Lungs: Clear to Auscultation, Normal Air Movement Heart: Regular Rate, No Murmurs Abdomen: Soft, Other (moderate ttp, purulent fluid from drain) Neuro: Normal Speech Results/Procedures Lab Laboratory Tests 02/14/23 05:36: White Blood Count 12.4H, Red Blood Count 2.98L, Hemoglobin 9.0L, Hematocrit 26L, Mean Corpuscular Volume 88, Mean Corpuscular Hemoglobin 30, Mean Corpuscular Hemoglobin Concent 35, Red Cell Distribution Width 13.2, Platelet Count 318, Mean Platelet Volume 10.5, Immature Granulocyte % (Auto) 1, Neutrophils (%) (Auto) 86H, Lymphocytes (%) (Auto) 7L, Monocytes (%) (Auto) 6, Eosinophils (%) (Auto) 1, Basophils (%) (Auto) 0, Neutrophils # (Auto) 10.6H, Lymphocytes # (Auto) 0.9L, Monocytes # (Auto) 0.7, Eosinophils # (Auto) 0.1, Basophils # (Auto) 0.0, Immature Granulocyte # (Auto) 0.1, Neutrophils % (Manual) 81, Lymphocytes % (Manual) 9, Monocytes % (Manual) 8, Atypical Lymphocytes 2, Platelet Estimate Adequate, Blood Morphology Comment Normal, Sodium Level 139, Potassium Level 3.4L, Chloride Level 110H, Carbon Dioxide Level 18L, Anion Gap 11, Blood Urea Nitrogen 13, Creatinine 1.32H, Estimat Glomerular Filtration Rate 50, BUN/Creatinine Ratio 10, Glucose Level 94, Calcium Level 8.0L, Corrected Calcium 9.3, Total Bilirubin 0.5, Aspartate Amino Transf (AST/SGOT) 18, Alanine Aminotransferase (ALT/SGPT) 19, Alkaline Phosphatase 58, Total Protein 5.8L, Albumin 2.4L Microbiology 02/11/23 Gram Stain - Final, Resulted 02/11/23 Anaerobic Culture - Preliminary, Resulted Bacteroides ovatus 02/11/23 Surgical Culture - Final, Resulted Escherichia coli Mixed Bacterial Roberta See Comments 02/10/23 Urine Culture - Final, Complete Lactobacillus species 02/10/23 Blood Culture - Preliminary, Resulted No growth Radiology Date of Exam:02/10/23 CT ABDOMEN/PELVIS W EXAMINATION: CT abdomen and pelvis with intravenous contrast. TECHNIQUE: Multiple contiguous axial images were obtained through the abdomen and pelvis after the uneventful administration of intravenous contrast. All CT scans use one or more of the following dose optimizing techniques: automated exposure control, MA and/or KvP adjustment based on patient size and exam type or iterative reconstruction. HISTORY: Left lower quadrant pain COMPARISON: None available. FINDINGS: Limited views of the lower thorax are unremarkable. The liver is normal without focal lesion. There is no biliary ductal dilation. Gallbladder is normal. Pancreas is normal. Spleen is normal. Adrenal glands are normal. The kidneys are normal. There is no hydronephrosis. Urinary bladder is normal. There is diverticulitis of the sigmoid colon. There is a fluid and gas collection associated with the sigmoid colon wall measuring 3.2 x 4.6 cm in keeping with an abscess. Small amount of free fluid is present. No free intraperitoneal air. The remainder of the bowel is normal. No abdominal or pelvic lymphadenopathy. Aorta is normal in caliber without aneurysm. There are no suspicious osseus lesions. IMPRESSION: 1. Sigmoid diverticulitis with a 3.2 x 4.6 cm abscess adjacent to the inflamed bowel. Dictated by: Dictated on workstation # [id number] Dict: 02/10/232202 Trans: 02/10/232203 [facility] [id number] Interpreted by: FLORINA MOTLEY MD Electronically signed by: FLORINA MOTLEY MD 02/10/232203 Assessment/Plan Assessment/Plan (1) Sepsis Status: Resolved Assessment & Plan: 02/14: Drain has been placed and draining purulent fluid, continue IV antibiotics and fluids, continue to monitor leukocytosis Qualifiers: Qualified Codes: A41.9 - Sepsis, unspecified organism (2) Diverticulitis of intestine with abscess Status: Acute Assessment & Plan: 02/14: General surgery Dr De Oliveira consulted, appreciate recommendations, drain in place Qualifiers: Qualified Codes: K57.80 - Diverticulitis of intestine, part unspecified, with perforation and abscess without bleeding (3) Hyponatremia Status: Resolved (4) Hypokalemia Status: Acute Assessment & Plan: 02/14: replaced and repeat level in AM ALLA RUIZ MD Feb 14, 2023 15:28
[2023-02-14 15:34] VITALS: BP 115/69
[2023-02-14 19:27] VITALS: BP 121/70
[2023-02-15] VITALS (8 sets, daily range): BP systolic 102–122; BP diastolic 58–74
[2023-02-15] MEDS: metroNIDAZOLE 500MG/100ML IVPB 100 ML IV SCH ×2 (02:20→15:19)
[2023-02-15] MEDS: morphine INJ 4 MG/ML 1 ML (VIAL/SYRINGE) IV PRN ×7 (02:23→22:13)
[2023-02-15] MEDS: PIPERACILLIN SODIUM/TAZOBACTAM 4.5 GM in NS (IVPB) 100 ML IV SCH ×3 (03:29→19:36)
[2023-02-15 05:50] LABS: BASOPHILS # (AUTO) 0.1 10^3/uL (0.0-0.1); BASOPHILS % (AUTO) 1 % (0-10); EOSINOPHILS # (AUTO) 0.1 10^3/uL (0.0-0.3); EOSINOPHILS % (AUTO) 1 % (0-10); HEMATOCRIT 29 % (35-52); LYMPHOCYTES # (AUTO) 0.8 10^3/uL (1.0-4.0); LYMPHOCYTES % (AUTO) 9 % (12-44); MEAN CORPUSCULAR HEMOGLOBIN 30 pg (25-34); MEAN CORPUSCULAR HGB CONC 34 g/dL (32-36); MEAN CORPUSCULAR VOLUME 87 fL (80-99); MEAN PLATELET VOLUME 10.5 fL (9.0-12.2); MONOCYTES # (AUTO) 0.3 10^3/uL (0.0-1.0); MONOCYTES % (AUTO) 3 % (0-12); NEUTROPHILS # (AUTO) 7.4 10^3/uL (1.8-7.8); NEUTROPHILS % (AUTO) 86 % (42-75); PLATELET COUNT 365 10^3/uL (130-400); WHITE BLOOD COUNT 8.6 10^3/uL (4.3-11.0)
[2023-02-15 06:10] LABS: ALBUMIN 2.2 GM/DL (3.2-4.5); BILIRUBIN,TOTAL 0.6 MG/DL (0.1-1.0); CREATININE SERUM 1.37 MG/DL (0.60-1.30); POTASSIUM 3.5 MMOL/L (3.6-5.0); TOTAL PROTEIN 5.4 GM/DL (6.4-8.2)
[2023-02-15] MEDS: LACTATED RINGERS 1,000 ML IV SCH ×3 (06:10→19:40)
--- NOTE | 2023-02-15 08:39 | Progress Note - Surgery ---
ISAURO MENDEZ 02/15/23 0839: Subjective Date Seen by a Provider: Feb 15, 2023 Time Seen by a Provider: 07:30 Subjective/Events-last exam Natalie was seen sitting up in bed and watching tv, she looks much better than she did yesterday, and reports that she is feeling a lot better. She says shes t olerating her liquids better, and that she didnt have any chills or fever, she said that the tylenol and toradol helped her tremendously, and rates todays pain a 1-2/10. there wasnt much drainage into the drain bag, and she says that the drained fluids are thickening and says so are her bowel movements. Says that she is gonna get up and walk around more today, saying that the ambulation has helped her to feel better. Review of Systems General: No Chills, No Night Sweats, No Malaise; Appetite HEENT: No Head Aches, No Visual Changes, No Dysphasia Pulmonary: No Dyspnea, No Cough, No Pleuritic Chest Pain Cardiovascular: Edema; No: Chest Pain, Palpitations, Orthopnea Gastrointestinal: Abdominal Pain; No: Nausea, Vomiting, Constipation Genitourinary: No Dysuria, No Incontinence Musculoskeletal: No: other, neck pain, shoulder pain, arm pain, back pain, hand pain, leg pain, foot pain Neurological: No: Weakness, Numbness, Change in speech, Confusion Objective Exam Vital Signs Date Time Temp Pulse Resp B/P (MAP) Pulse Ox O2 Delivery O2 Flow Rate FiO2 02/15/23 08:11 36.5 98 18 108/61 (77) 98 Room Air 02/15/23 03:53 36.6 99 18 102/68 (79) 95 Room Air 02/15/23 00:20 37.2 102 18 122/68 (86) 93 Room Air 02/14/23 22:55 37.3 02/14/23 20:10 Room Air 02/14/23 19:27 36.4 100 18 121/70 (87) 97 Room Air 02/14/23 15:34 36.5 99 20 115/69 (84) 96 Room Air 02/14/23 11:44 36.6 93 18 131/78 (95) 95 Room Air 02/14/23 10:16 Room Air I & O 02/15/23 07:00 Intake Total 4520 ml Output Total 200 ml Balance 4320 ml Capillary Refill : Less Than 3 Seconds General Appearance: No Apparent Distress, WD/WN HEENT: PERRL/EOMI, Moist Mucous Membranes Neck: Non Tender, Supple; No Lymphadenopathy (L), No Lymphadenopathy (R), No Thyromegaly Respiratory: Chest Non Tender, Lungs Clear, No Accessory Muscle Use, No Respiratory Distress Cardiovascular: Regular Rate, Rhythm, No Murmur Peripheral Pulses: 1+ Dorsalis Pedis (R), 1+ Left Dors-Pedis (L); 2+ Radial Pulses (R), 2+ Radial Pulses (L) Gastrointestinal: soft, no organomegaly; No distended; guarding, tenderness (lower quadrants; worse suprapubic and LLQ; overall improved when compared to last exam), other ( drain in place LLQ (erythema appears to be resolving)) Extremity: No Calf Tenderness, Pedal Edema (+2 pitting edema B/L below knees), Other (no longer has any mottling) Neurologic/Psychiatric: Alert, Oriented x3 Skin: Warm/Dry; No Diaphoresis, No Jaundice, No Petechia Lymphatic: No Adenopathy (cervical) Results Lab Laboratory Tests 02/15/23 05:29: White Blood Count 8.6, Red Blood Count 3.35L, Hemoglobin 10.0L, Hematocrit 29L, Mean Corpuscular Volume 87, Mean Corpuscular Hemoglobin 30, Mean Corpuscular Hemoglobin Concent 34, Red Cell Distribution Width 13.2, Platelet Count 365, Mean Platelet Volume 10.5, Immature Granulocyte % (Auto) 1, Neutrophils (%) (Auto) 86H, Lymphocytes (%) (Auto) 9L, Monocytes (%) (Auto) 3, Eosinophils (%) (Auto) 1, Basophils (%) (Auto) 1, Neutrophils # (Auto) 7.4, Lymphocytes # (Auto) 0.8L, Monocytes # (Auto) 0.3, Eosinophils # (Auto) 0.1, Basophils # (Auto) 0.1, Immature Granulocyte # (Auto) 0.1, Sodium Level 141, Potassium Level 3.5L, Chloride Level 110H, Carbon Dioxide Level 20L, Anion Gap 11, Blood Urea Nitrogen 12, Creatinine 1.37H, Estimat Glomerular Filtration Rate 48, BUN/Creatinine Ratio 9, Glucose Level 89, Calcium Level 8.0L, Corrected Calcium 9.4, Total Bilirubin 0.6, Aspartate Amino Transf (AST/SGOT) 16, Alanine Aminotransferase (ALT/SGPT) 16, Alkaline Phosphatase 52, Total Protein 5.4L, Albumin 2.2L Microbiology 02/11/23 Gram Stain - Final, Resulted 02/11/23 Anaerobic Culture - Preliminary, Resulted Bacteroides ovatus 02/11/23 Surgical Culture - Final, Resulted Escherichia coli Mixed Bacterial Roberta See Comments 02/10/23 Urine Culture - Final, Complete Lactobacillus species 02/10/23 Blood Culture - Preliminary, Resulted No growth Assessment/Plan Assessment/Plan Assessment/Plan Perforated Diverticulitis with abscess S/P drain placement * Drain output of ~0-5cc today, looks purulent, small amount that's drained looks thicker than yesterday * Continue to flush drain q8hrs S/P Leukocytosis (8.6 decreased from 12.4) * UTI- Lactobacillus species * pelvic abcess (+) E. Coli * continue IV Zosyn, Flagyl * Continue IVF Paroxysmal fevering stabilized with tylenol. Currently remains afebrile. Pain managed with toradol, current pain 1-2/ Encourage PO liquids and ambulation, increase IS use. * If liquids tolerated today advance to soft foods, and discharge patient from surgeries service with oral pain management F/u in clinic 2 weeks to assess taking out her drain. Bora CASTANEDASURINDERJUSTIN B DO 02/15/23 1528: Subjective Time Seen by a Provider: 11:11 Subjective/Events-last exam Pt seen and examined, states she is not feeling better and she still has pain. Able to keep down most of her liquid diet. She states she did not feel as bad as yesterday, "but, they also haven't flushed my drain today." Review of Systems General: No Chills, No Night Sweats; Fatigue Pulmonary: No Dyspnea, No Cough Cardiovascular: Edema (legs); No: Chest Pain, Palpitations Gastrointestinal: Abdominal Pain, Other (started having some runny BMs today); No: Nausea, Vomiting Objective Exam General Appearance: WD/WN, Anxious HEENT: PERRL/EOMI, Moist Mucous Membranes Respiratory: Chest Non Tender, Lungs Clear, Normal Breath Sounds, No Accessory Muscle Use, No Respiratory Distress Cardiovascular: Regular Rate, Rhythm, No Murmur Gastrointestinal: soft, no organomegaly; No distended; guarding (voluntary - entire abdomen), tenderness (lower quadrants; worse suprapubic and LLQ; overall improved when compared to last exam), other ( drain in place LLQ (erythema appears to be resolving)) Extremity: No Calf Tenderness, Pedal Edema (+2 pitting edema B/L below knees), Other (no longer has any mottling) Neurologic/Psychiatric: Alert, Oriented x3 Assessment/Plan Assessment/Plan Assessment/Plan Perforated Diverticulitis with abscess S/P drain placement * Drain output of ~0-5cc today, looks purulent, small amount that's drained looks thicker than yesterday * Continue to flush drain q8hrs * Pt appears to be doing worse, still feels "horrible" and won't allow me to touch her abdomen S/P Leukocytosis (8.6 decreased from 12.4) Pt is not improving like she is supposed to and stated she "just want this pain taken care of". At this point, I don't think she is gonna improve and discussed surgery with her; she is agreeable. I will schedule Laparoscopic Hand assisted Sloan's procedure with end colostomy. Went over risks and complications not limited to pain, bleeding, infection, scar, damage to bowel and need for further procedure. All questions answered to her satisfaction. Supervisory-Addendum Brief Verification & Attestation Participated in pt care: history, MDM, physical Personally performed: exam, history, MDM, supervision of care Care discussed with: Medical Student Procedures: n/a Verification and Attestation of Medical Student E/M Service A medical student performed and documented this service. I then reviewed and verified all information documented by the medical student and made modifications to such information, when appropriate. I personally performed a physical exam, medical decision making and then discussed any differences between the notes and made revisions as necessary to create one note. Justin Man , 02/15/23 , 15:28 ISAURO MENDEZ Feb 15, 2023 08:39 JUSTIN MAN DO Feb 15, 2023 15:28
[2023-02-15] MEDS: ENOXAPARIN 40 MG/0.4 ML (LOVENOX) SYR SC SCH (11:36)
[2023-02-15] MEDS: ACETAMINOPHEN 500 MG TAB (TYLENOL) PO PRN ×2 (13:40→21:00)
[2023-02-15] MEDS ORDERED: BISACODYL 5 MG (DULCOLAX) TABLET PO NR ×2 (15:30→18:00)
[2023-02-15] MEDS: ONDANSETRON 4 MG/2 ML (SDV) Z0FRAN IV PRN (17:35)
--- NOTE | 2023-02-15 17:40 | Progress Note ---
Subjective Subjective/Events-last exam Patient feeling better today. Had small BM last night and larger one this AM. CLD. Tolerating ambulation Review of Systems General: Fatigue, Malaise Pulmonary: No Dyspnea, No Cough Cardiovascular: No: Chest Pain, Palpitations, Edema Gastrointestinal: Abdominal Pain, Diarrhea Neurological: Weakness, Incoordination Objective Exam Last Set of Vital Signs Vital Signs Date Time Temp Pulse Resp B/P (MAP) Pulse Ox O2 Delivery O2 Flow Rate FiO2 02/15/23 16:13 36.9 101 20 106/68 (81) 95 Room Air 02/12/23 14:39 0.00 Capillary Refill : Less Than 3 Seconds I&O Intake and Output 02/15/23 00:00 Intake Total 4870 ml Output Total 20 ml Balance 4850 ml Intake Oral 1870 ml IV Total 3000 ml Drainage Total 20 ml # Voids 8 # Bowel Movements 1 General: Alert, Oriented X3, No Acute Distress Lungs: Clear to Auscultation, Normal Air Movement Heart: Regular Rate, No Murmurs Abdomen: Soft, Other (mild ttp, hypoactive bowel sounds) Neuro: Normal Speech Results/Procedures Lab Laboratory Tests 02/15/23 05:29: White Blood Count 8.6, Red Blood Count 3.35L, Hemoglobin 10.0L, Hematocrit 29L, Mean Corpuscular Volume 87, Mean Corpuscular Hemoglobin 30, Mean Corpuscular Hemoglobin Concent 34, Red Cell Distribution Width 13.2, Platelet Count 365, Mean Platelet Volume 10.5, Immature Granulocyte % (Auto) 1, Neutrophils (%) (Auto) 86H, Lymphocytes (%) (Auto) 9L, Monocytes (%) (Auto) 3, Eosinophils (%) (Auto) 1, Basophils (%) (Auto) 1, Neutrophils # (Auto) 7.4, Lymphocytes # (Auto) 0.8L, Monocytes # (Auto) 0.3, Eosinophils # (Auto) 0.1, Basophils # (Auto) 0.1, Immature Granulocyte # (Auto) 0.1, Sodium Level 141, Potassium Level 3.5L, Chloride Level 110H, Carbon Dioxide Level 20L, Anion Gap 11, Blood Urea Nitrogen 12, Creatinine 1.37H, Estimat Glomerular Filtration Rate 48, BUN/Creatinine Ratio 9, Glucose Level 89, Calcium Level 8.0L, Corrected Calcium 9.4, Total Bilirubin 0.6, Aspartate Amino Transf (AST/SGOT) 16, Alanine Aminotransferase (ALT/SGPT) 16, Alkaline Phosphatase 52, Total Protein 5.4L, Albumin 2.2L Microbiology 02/11/23 Gram Stain - Final, Resulted 02/11/23 Anaerobic Culture - Preliminary, Resulted Bacteroides ovatus 02/11/23 Surgical Culture - Final, Resulted Escherichia coli Mixed Bacterial Roberta See Comments 02/10/23 Urine Culture - Final, Complete Lactobacillus species 02/10/23 Blood Culture - Preliminary, Resulted No growth Radiology Date of Exam:02/10/23 CT ABDOMEN/PELVIS W EXAMINATION: CT abdomen and pelvis with intravenous contrast. TECHNIQUE: Multiple contiguous axial images were obtained through the abdomen and pelvis after the uneventful administration of intravenous contrast. All CT scans use one or more of the following dose optimizing techniques: automated exposure control, MA and/or KvP adjustment based on patient size and exam type or iterative reconstruction. HISTORY: Left lower quadrant pain COMPARISON: None available. FINDINGS: Limited views of the lower thorax are unremarkable. The liver is normal without focal lesion. There is no biliary ductal dilation. Gallbladder is normal. Pancreas is normal. Spleen is normal. Adrenal glands are normal. The kidneys are normal. There is no hydronephrosis. Urinary bladder is normal. There is diverticulitis of the sigmoid colon. There is a fluid and gas collection associated with the sigmoid colon wall measuring 3.2 x 4.6 cm in keeping with an abscess. Small amount of free fluid is present. No free intraperitoneal air. The remainder of the bowel is normal. No abdominal or pelvic lymphadenopathy. Aorta is normal in caliber without aneurysm. There are no suspicious osseus lesions. IMPRESSION: 1. Sigmoid diverticulitis with a 3.2 x 4.6 cm abscess adjacent to the inflamed bowel. Dictated by: Dictated on workstation # [id number] Dict: 02/10/232202 Trans: 02/10/232203 [facility] [id number] Interpreted by: FLORINA MOTLEY MD Electronically signed by: FLORINA MOTLEY MD 02/10/232203 Assessment/Plan Assessment/Plan (1) Sepsis Status: Resolved Assessment & Plan: 02/14: Drain has been placed and draining purulent fluid, continue IV antibiotics and fluids, continue to monitor leukocytosis Qualifiers: Qualified Codes: A41.9 - Sepsis, unspecified organism (2) Diverticulitis of intestine with abscess Status: Acute Assessment & Plan: 02/14: General surgery Dr De Oliveira consulted, appreciate recommendations, drain in place 02/15: Starting to have some output, pain improving, continue to monitor drain output Qualifiers: Qualified Codes: K57.80 - Diverticulitis of intestine, part unspecified, with perforation and abscess without bleeding (3) Hypokalemia Status: Acute Assessment & Plan: 02/14: replaced and repeat level in AM (4) Hyponatremia Status: Resolved ALLA RUIZ MD Feb 15, 2023 17:40
[2023-02-15] MEDS ORDERED: polyethylene glycoL Bowel Prep(MIRALAX) 238 GM PO SCH (18:00)
[2023-02-15] MEDS ORDERED: ONDANSETRON 4 MG/2 ML (SDV) Z0FRAN IVP ONE (20:00)
[2023-02-15] MEDS ORDERED: LORazepam INJ 2 MG/ML (ATIVAN) VIAL IVP PRN (20:00)
[2023-02-15] MEDS: KETOROLAC 30 MG/ML VIAL IVP PRN (21:00)
[2023-02-16] VITALS (12 sets, daily range): BP systolic 98–132; BP diastolic 56–69
[2023-02-16] MEDS: morphine INJ 4 MG/ML 1 ML (VIAL/SYRINGE) IV PRN ×3 (00:10→22:58)
[2023-02-16] MEDS: metroNIDAZOLE 500MG/100ML IVPB 100 ML IV SCH ×2 (02:46→15:33)
[2023-02-16] MEDS: PIPERACILLIN SODIUM/TAZOBACTAM 4.5 GM in NS (IVPB) 100 ML IV SCH ×3 (03:54→19:43)
[2023-02-16 05:43] LABS: BASOPHILS # (AUTO) 0.1 10^3/uL (0.0-0.1); BASOPHILS % (AUTO) 0 % (0-10); EOSINOPHILS % (AUTO) 0 % (0-10); HEMATOCRIT 28 % (35-52); HEMOGLOBIN 9.7 g/dL (11.5-16.0); LYMPHOCYTES # (AUTO) 0.6 10^3/uL (1.0-4.0); LYMPHOCYTES % (AUTO) 5 % (12-44); MEAN CORPUSCULAR HEMOGLOBIN 29 pg (25-34); MEAN CORPUSCULAR HGB CONC 34 g/dL (32-36); MEAN CORPUSCULAR VOLUME 85 fL (80-99); MEAN PLATELET VOLUME 10.6 fL (9.0-12.2); MONOCYTES # (AUTO) 0.3 10^3/uL (0.0-1.0); MONOCYTES % (AUTO) 2 % (0-12); NEUTROPHILS # (AUTO) 10.8 10^3/uL (1.8-7.8); NEUTROPHILS % (AUTO) 91 % (42-75); PLATELET COUNT 404 10^3/uL (130-400); WHITE BLOOD COUNT 11.9 10^3/uL (4.3-11.0)
[2023-02-16 05:54] LABS: ALBUMIN 2.1 GM/DL (3.2-4.5); BILIRUBIN,TOTAL 0.6 MG/DL (0.1-1.0); CREATININE SERUM 1.34 MG/DL (0.60-1.30); POTASSIUM 3.2 MMOL/L (3.6-5.0); TOTAL PROTEIN 5.5 GM/DL (6.4-8.2)
--- NOTE | 2023-02-16 07:34 | Progress Note - Surgery ---
MENDEZ,ISAURO 02/16/23 0734: Subjective Date Seen by a Provider: Feb 16, 2023 Time Seen by a Provider: 07:00 Subjective/Events-last exam Natalie was awake watching tv sitting at 40 degree angle, she said that she had a hard night and was fighting fever, chills, swelling and vomiting. She was vis ibly distended and mentioned that its actually improved from the middle of the night when she thought "she was going to pop" she says touching her abdomen is a 10/16 and its just been worsening. She described her vomit as looking the same has her drain bag, which looks mustard brown and purulent. She is confirmed not having drank or ate anything, and that she is ready for surgery today because she just wants the pain to stop and for her to feel better. Review of Systems General: Chills, Night Sweats, Fatigue, Malaise; No Appetite HEENT: No Head Aches, No Visual Changes Pulmonary: No Dyspnea, No Cough, No Pleuritic Chest Pain Cardiovascular: Edema; No: Chest Pain, Palpitations, Paroxysmal Noc. Dyspnea, Lt Headedness Gastrointestinal: Nausea, Vomiting, Abdominal Pain, Diarrhea (says its due to her pre surgery medications); No: Melena, Hematochezia Genitourinary: Dysuria, Frequency; No Incontinence, No Hematuria Musculoskeletal: No: other, neck pain, shoulder pain, arm pain, back pain, hand pain, leg pain, foot pain Neurological: No: Weakness, Numbness, Change in speech, Confusion Objective Exam Vital Signs Date Time Temp Pulse Resp B/P (MAP) Pulse Ox O2 Delivery O2 Flow Rate FiO2 02/16/23 03:57 36.7 99 20 105/63 (77) 94 Room Air 02/16/23 00:05 36.8 97 20 101/56 (71) 95 Room Air 02/15/23 22:00 38.1 118 20 115/58 (77) 94 Room Air 02/15/23 22:00 38.1 02/15/23 22:00 38.1 02/15/23 21:00 38.8 02/15/23 21:00 38.8 02/15/23 20:55 38.8 02/15/23 19:43 37.5 106 20 114/74 (87) 96 Room Air 02/15/23 19:35 Room Air 02/15/23 16:13 36.9 101 20 106/68 (81) 95 Room Air 02/15/23 15:20 36.9 02/15/23 13:40 38.2 02/15/23 13:09 36.5 100 20 108/71 (83) 95 Room Air 02/15/23 11:25 37.5 119 20 118/65 (82) 97 Room Air 02/15/23 08:11 36.5 98 18 108/61 (77) 98 Room Air 02/15/23 08:00 Room Air I & O 02/16/23 07:00 Intake Total 3770 ml Output Total 1080 ml Balance 2690 ml Capillary Refill : Less Than 3 Seconds General Appearance: WD/WN, Anxious, Severe Distress HEENT: PERRL/EOMI, Moist Mucous Membranes; No Photophobia, No Scleral Icterus (L), No Scleral Icterus (R) Neck: Non Tender, Supple; No Lymphadenopathy (L), No Lymphadenopathy (R), No Thyromegaly Respiratory: Chest Non Tender, Lungs Clear, No Accessory Muscle Use, No Respiratory Distress Cardiovascular: No Murmur, Tachycardia Peripheral Pulses: 1+ Dorsalis Pedis (R), 1+ Left Dors-Pedis (L); 2+ Radial Pulses (R), 2+ Radial Pulses (L) Gastrointestinal: no organomegaly, distended, guarding (voluntary - entire abdomen), tenderness (lower quadrants; worse suprapubic and LLQ; overall improved when compared to last exam), other ( drain in place LLQ (stain on sheets) she says the line was leaking when she was more distended last night) Extremity: No Calf Tenderness, Pedal Edema (+2 pitting edema B/L below knees), Swelling Neurologic/Psychiatric: Alert, Oriented x3 Skin: No Cyanosis; Diaphoresis; No Ecchymosis, No Jaundice, No Petechia Lymphatic: No Adenopathy (cervical) Results Lab Laboratory Tests 02/16/23 05:10: White Blood Count 11.9H, Red Blood Count 3.32L, Hemoglobin 9.7L, Hematocrit 28L, Mean Corpuscular Volume 85, Mean Corpuscular Hemoglobin 29, Mean Corpuscular Hemoglobin Concent 34, Red Cell Distribution Width 13.3, Platelet Count 404H, Mean Platelet Volume 10.6, Immature Granulocyte % (Auto) 1, Neutrophils (%) (Auto) 91H, Lymphocytes (%) (Auto) 5L, Monocytes (%) (Auto) 2, Eosinophils (%) (Auto) 0, Basophils (%) (Auto) 0, Neutrophils # (Auto) 10.8H, Lymphocytes # (Auto) 0.6L, Monocytes # (Auto) 0.3, Eosinophils # (Auto) 0.0, Basophils # (Auto) 0.1, Immature Granulocyte # (Auto) 0.1, Sodium Level 142, Potassium Level 3.2L, Chloride Level 110H, Carbon Dioxide Level 17L, Anion Gap 15H, Blood Urea N itrogen 17, Creatinine 1.34H, Estimat Glomerular Filtration Rate 50, BUN/Creatinine Ratio 13, Glucose Level 106H, Calcium Level 8.0L, Corrected Calcium 9.5, Total Bilirubin 0.6, Aspartate Amino Transf (AST/SGOT) 21, Alanine Aminotransferase (ALT/SGPT) 19, Alkaline Phosphatase 62, Total Protein 5.5L, Albumin 2.1L Microbiology 02/11/23 Gram Stain - Final, Resulted 02/11/23 Anaerobic Culture - Preliminary, Resulted Bacteroides ovatus 02/11/23 Surgical Culture - Final, Resulted Escherichia coli Mixed Bacterial Roberta See Comments 02/10/23 Urine Culture - Final, Complete Lactobacillus species 02/10/23 Blood Culture - Preliminary, Resulted No growth Assessment/Plan Assessment/Plan Assessment/Plan Perforated Diverticulitis with abscess S/P drain placement * Drain output of ~5cc today, looks purulent, no change from yesterday * Pt not improved, peritonitis diffusely through all 4 quadrants * NPO compliant * Laparoscopic Hand assisted Sloan's procedure with end colostomy Increasing Leukocytosis (8.6 yesterday to 11.9 today) Pt is agreeable to her surgery plans today and still says she wants the procedure done. JUSTIN DE OLIVEIRA DO 02/16/23 0834: Subjective Time Seen by a Provider: 08:15 Subjective/Events-last exam Pt seen and examined, states she is feeling worse today and "just want this fixed". She was worse last night, states still distended but not as bad. She is nauseous and having increased pain. Review of Systems General: Chills, Night Sweats, Fatigue, Malaise Pulmonary: No Dyspnea, No Cough Cardiovascular: Edema; No: Chest Pain, Palpitations Gastrointestinal: Nausea, Vomiting, Abdominal Pain, Diarrhea (says its due to her pre surgery medications) Genitourinary: Dysuria, Frequency Objective Exam General Appearance: Anxious, Chronically ill, Moderate Distress HEENT: PERRL/EOMI, Moist Mucous Membranes Respiratory: Chest Non Tender, Lungs Clear, Normal Breath Sounds, No Accessory Muscle Use, No Respiratory Distress Cardiovascular: No Murmur, Tachycardia Gastrointestinal: no organomegaly, distended, guarding (voluntary - entire abdomen), tenderness (lower quadrants; worse suprapubic and LLQ; overall improved when compared to last exam), other ( drain in place LLQ (stain on sheets) she says the line was leaking when she was more distended last night) Extremity: No Calf Tenderness, Pedal Edema (+2 pitting edema B/L below knees) Neurologic/Psychiatric: Alert, Oriented x3 Skin: Diaphoresis Assessment/Plan Assessment/Plan Assessment/Plan Perforated Diverticulitis with abscess S/P drain placement * Drain output of ~5cc today, looks purulent, no change from yesterday * Pt not improved, peritonitis diffusely through all 4 quadrants * NPO compliant * Laparoscopic Hand assisted Sloan's procedure with end colostomy Pt got worse after we tried to do bowel prep yesterday, plan to go to the OR today. All questions answered to her satisfaction. Supervisory-Addendum Brief Verification & Attestation Participated in pt care: history, MDM, physical Personally performed: exam, history, MDM, supervision of care Care discussed with: Medical Student Procedures: n/a Verification and Attestation of Medical Student E/M Service A medical student performed and documented this service. I then reviewed and verified all information documented by the medical student and made modifications to such information, when appropriate. I personally performed a physical exam, medical decision making and then discussed any differences between the notes and made revisions as necessary to create one note. Justin De Oliveira , 02/16/23 , 08:34 ISAURO MENDEZ Feb 16, 2023 07:34 JUSTIN DE OLIVEIRA DO Feb 16, 2023 08:34
[2023-02-16] MEDS: LACTATED RINGERS 1,000 ML IV SCH ×2 (07:53→22:49)
[2023-02-16] MEDS ORDERED: BUP/EPI 0.25% 1:200,000 (MARCAINE) 30 ML VIAL ONE (10:17)
[2023-02-16] MEDS ORDERED: LIDOCAINE PF 2% 5 ML (XYLOCAINE) VIAL ONE (11:21)
[2023-02-16] MEDS ORDERED: proPOfol 200 MG/20 ML (DIPRIVAN) VIAL IV ONE (11:21)
[2023-02-16] MEDS ORDERED: GLYCOPYRROLATE 0.2 MG/ML (ROBINUL) 2 ML VIAL ONE ×2 (11:21→13:19)
[2023-02-16] MEDS ORDERED: ONDANSETRON 4 MG/2 ML (SDV) Z0FRAN ONE (11:21)
[2023-02-16] MEDS ORDERED: MIDAZOLAM 2 MG/2 ML (VERSED) VIAL ONE (11:22)
[2023-02-16] MEDS ORDERED: fentaNYL INJ 100 MCG/2 ML AMP ONE (11:22)
[2023-02-16] MEDS ORDERED: ROCURONIUM 50 MG/5 ML (ZEMURON) VIAL IV ONE ×2 (11:22→12:23)
[2023-02-16] MEDS ORDERED: NEOSTIGMINE (BLOXIVERZ ) 1 MG/1ML 10 ML VIAL ONE ×2 (11:22→13:19)
[2023-02-16] MEDS: LACTATED RINGERS 1,000 ML IV PRN ×3 (11:25→13:40)
[2023-02-16] MEDS ORDERED: HYDROmorphone 2 MG/ML VIAL (DILAUDID) ONE (12:10)
[2023-02-16] MEDS: ENOXAPARIN 40 MG/0.4 ML (LOVENOX) SYR SC SCH (12:30)
[2023-02-16] MEDS ORDERED: ROPIVACAINE 5MG/ML 30ML VIAL ONE (13:20)
--- NOTE | 2023-02-16 13:20 | Progress Note-Post Operative ---
Post-Operative Progess Note Surgeon (s)/Hand Candy Dipper (s) Surgeon JUSTIN MAN DO Hand Candy Dipper: Joel Pre-Operative Diagnosis Perforated Diverticulitis Post-Operative Diagnosis Same plus abdominal abscess inflamed appendix Necrotic omentum Umbilical hernia Procedure & Operative Findings Date of Procedure 02/16/23 Procedure Performed/Findings Colectomy - Sloan's Procedure with end Colostomy Takedown of splenic flexure Partial Omentectomy Appendectomy - open Abd washout - with 10 L Anesthesia Type GET Estimated Blood Loss Estimated blood loss (mL): 50ml Specimens/Packing Specimens Removed Partial omentum & Sigmoid colon appendix Hernia contents Packing: packed midline with kerlix soaked betadine JUSTIN MAN DO Feb 16, 2023 13:20
--- NOTE | 2023-02-16 13:41 | Progress Note ---
Subjective Subjective/Events-last exam Patient is having alot more pain today. NPO for surgery. Review of Systems General: Chills, Fatigue Pulmonary: No Dyspnea, No Cough Cardiovascular: Edema; No: Chest Pain, Palpitations Gastrointestinal: Abdominal Pain Neurological: Weakness, Incoordination Objective Exam Last Set of Vital Signs Vital Signs Date Time Temp Pulse Resp B/P (MAP) Pulse Ox O2 Delivery O2 Flow Rate FiO2 02/16/23 08:00 Room Air 02/16/23 07:39 36.6 104 19 105/69 (81) 93 02/12/23 14:39 0.00 Capillary Refill : Less Than 3 Seconds I&O Intake and Output 02/16/23 00:00 Intake Total 3720 ml Output Total 1280 ml Balance 2440 ml Intake Oral 1220 ml IV Total 2500 ml Output Urine Total 980 ml Stool Total 200 ml Emesis 100 ml Drainage Total 0 ml # Voids 10 # Bowel Movements 7 # Emeses 1 General: Alert, Oriented X3, No Acute Distress Lungs: Clear to Auscultation, Normal Air Movement Heart: Regular Rate, No Murmurs Abdomen: Other (Distended and mod/severe ttp, + rebound ttp, hypoactive bowel sounds) Extremities: Other (2+ pitting edema equal bilaterally) Results/Procedures Lab Laboratory Tests 02/16/23 05:10: White Blood Count 11.9H, Red Blood Count 3.32L, Hemoglobin 9.7L, Hematocrit 28L, Mean Corpuscular Volume 85, Mean Corpuscular Hemoglobin 29, Mean Corpuscular Hemoglobin Concent 34, Red Cell Distribution Width 13.3, Platelet Count 404H, Mean Platelet Volume 10.6, Immature Granulocyte % (Auto) 1, Neutrophils (%) (Auto) 91H, Lymphocytes (%) (Auto) 5L, Monocytes (%) (Auto) 2, Eosinophils (%) (Auto) 0, Basophils (%) (Auto) 0, Neutrophils # (Auto) 10.8H, Lymphocytes # (Auto) 0.6L, Monocytes # (Auto) 0.3, Eosinophils # (Auto) 0.0, Basophils # (Aut o) 0.1, Immature Granulocyte # (Auto) 0.1, Sodium Level 142, Potassium Level 3.2L, Chloride Level 110H, Carbon Dioxide Level 17L, Anion Gap 15H, Blood Urea Nitrogen 17, Creatinine 1.34H, Estimat Glomerular Filtration Rate 50, BUN/Creatinine Ratio 13, Glucose Level 106H, Calcium Level 8.0L, Corrected Calcium 9.5, Total Bilirubin 0.6, Aspartate Amino Transf (AST/SGOT) 21, Alanine Aminotransferase (ALT/SGPT) 19, Alkaline Phosphatase 62, Total Protein 5.5L, Alb umin 2.1L Microbiology 02/11/23 Gram Stain - Final, Complete 02/11/23 Anaerobic Culture - Final, Complete Bacteroides ovatus 02/11/23 Surgical Culture - Final, Complete Escherichia coli Mixed Bacterial Roberta See Comments 02/10/23 Urine Culture - Final, Complete Lactobacillus species 02/10/23 Blood Culture - Preliminary, Resulted No growth Radiology Date of Exam:02/10/23 CT ABDOMEN/PELVIS W EXAMINATION: CT abdomen and pelvis with intravenous contrast. TECHNIQUE: Multiple contiguous axial images were obtained through the abdomen and pelvis after the uneventful administration of intravenous contrast. All CT scans use one or more of the following dose optimizing techniques: automated exposure control, MA and/or KvP adjustment based on patient size and exam type or iterative reconstruction. HISTORY: Left lower quadrant pain COMPARISON: None available. FINDINGS: Limited views of the lower thorax are unremarkable. The liver is normal without focal lesion. There is no biliary ductal dilation. Gallbladder is normal. Pancreas is normal. Spleen is normal. Adrenal glands are normal. The kidneys are normal. There is no hydronephrosis. Urinary bladder is normal. There is diverticulitis of the sigmoid colon. There is a fluid and gas collection associated with the sigmoid colon wall measuring 3.2 x 4.6 cm in keeping with an abscess. Small amount of free fluid is present. No free intraperitoneal air. The remainder of the bowel is normal. No abdominal or pelvic lymphadenopathy. Aorta is normal in caliber without aneurysm. There are no suspicious osseus lesions. IMPRESSION: 1. Sigmoid diverticulitis with a 3.2 x 4.6 cm abscess adjacent to the inflamed bowel. Dictated by: Dictated on workstation # [id number] Dict: 02/10/232202 Trans: 02/10/232203 [facility] [id number] Interpreted by: FLORINA MOTLEY MD Electronically signed by: FLORINA MOTLEY MD 02/10/232203 Assessment/Plan Assessment/Plan (1) Sepsis Status: Resolved Assessment & Plan: 02/14: Drain has been placed and draining purulent fluid, continue IV antibiotics and fluids, continue to monitor leukocytosis 02/16: WBC trending back up today, increase in abdominal pain, patient to have surgery today, NPO Qualifiers: Qualified Codes: A41.9 - Sepsis, unspecified organism (2) Diverticulitis of intestine with abscess Status: Acute Assessment & Plan: 02/14: General surgery Dr De Oliveira consulted, appreciate recommendations, drain in place 02/15: Starting to have some output, pain improving, continue to monitor drain output 02/16: Surgery today with Alvino Qualifiers: Qualified Codes: K57.80 - Diverticulitis of intestine, part unspecified, with perforation and abscess without bleeding (3) Hypokalemia Status: Acute Assessment & Plan: 02/14: replaced and repeat level in AM (4) Hyponatremia Status: Resolved ALLA RUIZ MD Feb 16, 2023 13:41
[2023-02-16] MEDS ORDERED: KETOROLAC 30 MG/ML VIAL ONE (13:55)
[2023-02-16] MEDS ORDERED: PROMETHAZINE INJ 25 MG/ML (PHENERGAN) AMP IVP ONE (14:15)
[2023-02-16] MEDS ORDERED: ONDANSETRON 4 MG/2 ML (SDV) Z0FRAN IVP PRN (14:15)
[2023-02-16] MEDS ORDERED: HYDROmorphone 2 MG/ML VIAL (DILAUDID) IV ONE (14:15)
--- NOTE | 2023-02-16 22:30 | OPERATIVE REPORT ---
DATE OF SERVICE: 02/16/2023 PREOPERATIVE DIAGNOSIS: Perforated diverticulitis. POSTOPERATIVE DIAGNOSES: 1. Perforated diverticulitis. 2. Abdominal abscess. 3. Inflamed appendix. 4. Necrotic omentum. 5. Umbilical hernia. PROCEDURE: 1. Colectomy, Balaji's procedure with end colostomy. 2. Takedown splenic flexure. 3. Partial omentectomy. 4. Appendectomy, open. 5. Abdominal washout with approximately 10 liters of warm normal saline. SURGEON: Justin De Oliveira DO SUBCONTRACTS MANAGER: Dr. Maldonado. ANESTHESIA: General endotracheal tube. SPECIMEN: 1. Partial omentum and sigmoid colon. 2. Appendix. 3. Hernia contents. BLOOD LOSS: Approximately 50 mL. FLUIDS: Per anesthesia. POSTOPERATIVE CONDITION: Stable. INDICATIONS FOR PROCEDURE: The patient is a 48-year-old female who had a perforated diverticulitis. She was not improving, elected to go to the OR. DESCRIPTION OF PROCEDURE: We were attempting to do laparoscopic hand-assisted, but when we removed the drain prior to prepping, she had immediate outpouring of feculent material and then we made a skin incision in the midline to start after being prepped and draped. We immediately got out more purulent or fecal material. At this time, we then extended the incision superiorly and inferiorly to be able to get into the abdomen, protecting the bowel by putting the hand in, opening the intestine. I then used some blunt dissection to get down the left lower quadrant and get down around the sigmoid colon. Distal to this, I was able to feel an area that was soft. We had suctioned out a fair amount of fecal material pushing intestine and the omentum up, I was able to get Ron's to hold the incision open, get around the rectum distally to the sigmoid colon to this abscess area and phlegmon, placed a contour stapler, clamped, fired, and held for 30 seconds and then transected there by cutting this. Then came up across the omentum, the omentum was rock hard on top of the sigmoid colon and I was able to move part of this out of the way to get above this phlegmon. We then get under the mesentery and under the sigmoid or descending colon with blunt dissection as well as a Bovie electrocautery to come through the mesentery, making the defect and then we placed a TA across, clamped and then cut this distal portion off and then used a LigaSure to take the sigmoid colon down across the pelvis on the left side down towards where we had disconnected it, thereby removing this portion of sigmoid colon; however, the omentum was necrotic and it was stuck on the sigmoid colon and started coming across the omentum, taking almost all of the omentum out coming right along the transverse colon, removing this necrotic portion of omentum, which turned out to be approximately 80% of the omentum and then passed this omentum and the sigmoid colon, which was attached to it off the table. I then encountered more interloop abscesses. We started irrigating, we irrigated the left side and then we irrigated the left upper quadrant after we got more purulence above the spleen and then purulence in the right upper quadrant as well as in the right pericolic gutter and again the intraloop abscesses in the pelvis, we went up washing out approximately 10 liters of warm normal saline at the end of the case. When we got down to the appendix, it was very inflamed and felt like it would be hard to go back in and get it. We removed the appendix, grasped with a [place] using LigaSure to come across the mesoappendix until the appendix was just attached to the cecum and then used an Endo-CHARLY, clamped and fired across the base of the appendix and then removed this and passed this off the table. Again, we had been copiously irrigating and we ran the small bowel from the terminal ileum all the way to ligament of Treitz. There were no holes, got out all the interloop abscesses and irrigated along the way. At this point, then held the intestine to the right side of the abdomen and came along the white line of [place] on the left pericolic gutter coming up all the way across in the past the colosplenic ligaments taking down the splenic flexure, so that we had good distance with our colon. Once this was done, once we irrigated enough, it was basically coming out clear, then found a point between the umbilicus and the ASIS, grasped the skin with a Sarina and then cut off the skin and a portion of the subcutaneous fat below this and dissected down through the subcutaneous fat with Bovie electrocautery down to the fascia. Fascia was incised with a cruciate incision, spread the muscle and then went through the peritoneum with Bovie electrocautery, placed two fingers through here and then a Ewa and then able to pull the sigmoid and descending colon through this to be able to create our ostomy later. At this point, then elected to start closing the midline. There was an umbilical hernia and there was fat in here. We cut this fat, passed off the table, then closed the fascia with a #1 double stranded PDS suture running from superior portion to inferior portion tying to itself. We then covered this and cut off the staple line from the sigmoid/descending colon, matured this with a Nona type colostomy suturing at the 12 o'clock, 3 o'clock, 6 o'clock and 9 o'clock position, sutured into the opening of the intestine and then along the intestine to Nona this portion of the intestine open and then in between with 3-0 Vicryl approximately two sutures in between each of these 3, 6, 12 and 9 o'clock position to mature the colostomy. Once the colostomy was matured and then placed an ostomy device and then placed Betadine-soaked Kerlix in the midline incision. Area was then cleaned and dried. Dressings placed. The patient tolerated the procedure. Sponge and needle counts were correct at the end of the case. Dr. Maldonado assisted in this case helping to make incisions, close incisions, identify anatomy and hold anatomy out of the way. The patient transferred to recovery room in stable condition. Job ID: [id number] DocumentID: [id number] Dictated Date: 02/16/2023 14:11:56 Rn Case Manager Hospice Date: 02/16/2023 22:28:00 Dictated By: JUSTIN DE OLIVEIRA DO
[2023-02-17] MEDS: metroNIDAZOLE 500MG/100ML IVPB 100 ML IV SCH ×2 (02:23→14:32)
[2023-02-17 04:05] VITALS: BP 110/60
[2023-02-17] MEDS: PIPERACILLIN SODIUM/TAZOBACTAM 4.5 GM in NS (IVPB) 100 ML IV SCH ×3 (04:05→19:51)
[2023-02-17] MEDS: morphine INJ 4 MG/ML 1 ML (VIAL/SYRINGE) IV PRN ×4 (04:13→16:20)
[2023-02-17 05:38] LABS: BASOPHILS # (AUTO) 0.1 10^3/uL (0.0-0.1); BASOPHILS % (AUTO) 0 % (0-10); EOSINOPHILS % (AUTO) 0 % (0-10); HEMATOCRIT 26 % (35-52); HEMOGLOBIN 8.8 g/dL (11.5-16.0); LYMPHOCYTES # (AUTO) 0.8 10^3/uL (1.0-4.0); LYMPHOCYTES % (AUTO) 5 % (12-44); MEAN CORPUSCULAR HEMOGLOBIN 30 pg (25-34); MEAN CORPUSCULAR HGB CONC 35 g/dL (32-36); MEAN CORPUSCULAR VOLUME 86 fL (80-99); MEAN PLATELET VOLUME 10.6 fL (9.0-12.2); MONOCYTES # (AUTO) 0.4 10^3/uL (0.0-1.0); MONOCYTES % (AUTO) 3 % (0-12); NEUTROPHILS # (AUTO) 13.7 10^3/uL (1.8-7.8); NEUTROPHILS % (AUTO) 91 % (42-75); PLATELET COUNT 441 10^3/uL (130-400); WHITE BLOOD COUNT 15.1 10^3/uL (4.3-11.0)
[2023-02-17 06:01] LABS: ALBUMIN 1.6 GM/DL (3.2-4.5); BILIRUBIN,TOTAL 0.4 MG/DL (0.1-1.0); CALCIUM 7.4 MG/DL (8.5-10.1); CREATININE SERUM 1.24 MG/DL (0.60-1.30); POTASSIUM 3.5 MMOL/L (3.6-5.0); TOTAL PROTEIN 4.4 GM/DL (6.4-8.2)
--- NOTE | 2023-02-17 07:42 | Progress Note - Surgery ---
ISAURO MENDEZ 02/17/23 0742: Subjective Date Seen by a Provider: Feb 17, 2023 Time Seen by a Provider: 07:00 Subjective/Events-last exam Pt was seen lying flat in bed with her at bedside. She is recovering well and doesnt appear to be in distress at this time. She is happy that her "swelling is going down" and that she doesnt hurt like she did, her abdomen was rated 3/10 on pain when being touched but when shes lying she says she doesn't really have pain but that she feels stiff. She was mentioning feeling very thirsty and that she was hoping to advance off of NPO soon. She denies feeling nauseas, feverish, chills or sweats, headache, lightheadedness, chest pain, leg pain, shortness of breath. Review of Systems General: No Chills, No Night Sweats, No Fatigue, No Malaise; Appetite (more thirsty than hungry) HEENT: No Head Aches, No Visual Changes; Sore Throat (she says due to mouth dryness) Pulmonary: No Dyspnea, No Cough, No Pleuritic Chest Pain Cardiovascular: Edema; No: Chest Pain, Palpitations, Lt Headedness Gastrointestinal: Abdominal Pain; No: Nausea, Vomiting Genitourinary: No Dysuria, No Incontinence, No Hematuria Musculoskeletal: back pain (says she feels stiff); No: neck pain, shoulder pain Neurological: No: Numbness, Change in speech, Confusion Objective Exam Vital Signs Date Time Temp Pulse Resp B/P (MAP) Pulse Ox O2 Delivery O2 Flow Rate FiO2 02/17/23 04:05 37.4 109 18 110/60 (77) 94 Nasal Cannula 2.00 02/16/23 23:46 37.1 99 18 106/61 (76) 98 Nasal Cannula 2.00 02/16/23 19:45 Room Air 02/16/23 19:42 36.5 87 17 100/59 (73) 100 Room Air 02/16/23 15:01 36.5 100 19 98/62 (74) 96 Nasal Cannula 3.00 02/16/23 14:35 Nasal Cannula 3.00 02/16/23 14:30 37.2 12 114/57 (76) 95 Nasal Cannula 3.00 02/16/23 14:25 Nasal Cannula 3.00 02/16/23 14:20 12 106/65 (79) 97 OxyMask 3.00 02/16/23 14:10 Face Tent 8 02/16/23 14:10 10 110/60 (77) 97 OxyMask 3.00 02/16/23 14:00 14 122/64 (83) 100 OxyMask 8 02/16/23 13:55 Face Tent 8 02/16/23 13:50 12 119/58 (78) 100 OxyMask 8 02/16/23 13:43 37.2 12 132/63 (86) 100 OxyMask 8 02/16/23 13:43 Face Tent 8 02/16/23 08:00 Room Air 02/16/23 07:39 36.6 104 19 105/69 (81) 93 Room Air I & O 02/17/23 07:00 Intake Total 4300 ml Output Total 1450 ml Balance 2850 ml Capillary Refill : Less Than 3 Seconds General Appearance: No Apparent Distress, Chronically ill, Obese HEENT: PERRL/EOMI; No Photophobia, No Scleral Icterus (L), No Scleral Icterus (R); Other (Dry mouth with lips cracking) Neck: Non Tender, Supple; No Lymphadenopathy (L), No Lymphadenopathy (R), No Thyromegaly Respiratory: Chest Non Tender, No Accessory Muscle Use, No Respiratory Distress; No Crackles; Wheezing (mild inspiratory wheeze heard around upper right lobe) Cardiovascular: No Murmur, Tachycardia Peripheral Pulses: 2+ Dorsalis Pedis (R), 2+ Left Dors-Pedis (L), 2+ Radial Pulses (R), 2+ Radial Pulses (L) Gastrointestinal: soft, no organomegaly, tenderness (lower quadrants; worse suprapubic and LLQ; overall improved when compared to last exam), other (tissues surrounding her bandages are c/d/i ) Extremity: No Calf Tenderness, Pedal Edema (edema improved, 1+) Neurologic/Psychiatric: Alert, Oriented x3 Skin: Warm/Dry; No Jaundice, No Rash Lymphatic: No Adenopathy (cervical) Results Lab Laboratory Tests 02/17/23 05:05: White Blood Count 15.1H, Red Blood Count 2.96L, Hemoglobin 8.8L, Hematocrit 26L, Mean Corpuscular Volume 86, Mean Corpuscular Hemoglobin 30, Mean Corpuscular Hemoglobin Concent 35, Red Cell Distribution Width 13.5, Platelet Count 441H, Mean Platelet Volume 10.6, Immature Granulocyte % (Auto) 1, Neutrophils (%) (Auto) 91H, Lymphocytes (%) (Auto) 5L, Monocytes (%) (Auto) 3, Eosinophils (%) (Auto) 0, Basophils (%) (Auto) 0, Neutrophils # (Auto) 13.7H, Lymphocytes # (Auto) 0.8L, Monocytes # (Auto) 0.4, Eosinophils # (Auto) 0.0, Basophils # (Auto) 0.1, Immature Granulocyte # (Auto) 0.1, Sodium Level 144, Potassium Level 3.5L, Chloride Level 112H, Carbon Dioxide Level 19L, Anion Gap 13, Blood Urea Nitrogen 17, Creatinine 1.24, Estimat Glomerular Filtration Rate 54, BUN/Creatinine Ratio 14, Glucose Level 103, Calcium Level 7.4L, Corrected Calci um 9.3, Total Bilirubin 0.4, Aspartate Amino Transf (AST/SGOT) 26, Alanine Aminotransferase (ALT/SGPT) 17, Alkaline Phosphatase 57, Total Protein 4.4L, Albumin 1.6#L Microbiology 02/15/23 MRSA Screen - Final, Complete MRSA not isolated 02/11/23 Gram Stain - Final, Complete 02/11/23 Anaerobic Culture - Final, Complete Bacteroides ovatus 02/11/23 Surgical Culture - Final, Complete Escherichia coli Mixed Bacterial Roberta See Comments 02/10/23 Urine Culture - Final, Complete Lactobacillus species 02/10/23 Blood Culture - Final, Complete No growth Assessment/Plan Assessment/Plan Assessment/Plan S/P: Colectomy - Sloan's Procedure with end Colostomy Takedown of splenic flexure Partial Omentectomy Appendectomy - open Abd washout - with 10 L * Pain is well managed today with Current medication (-02/14) * NG tube in place * Range of motion limited currently to only sitting up slowly * advance off of NPO start with liquid diet, monitor tolerance * Continue IS treatment * Angel Catheter in place EDUARDO MAN DO 02/17/23 0944: Subjective Time Seen by a Provider: 09:29 Subjective/Events-last exam Pt seen and examined, states she is much better than yesterday. She mostly wants something to wet her mouth because it is so dry. Pain is controlled. Review of Systems HEENT: Sore Throat (she says due to mouth dryness) Pulmonary: No Dyspnea, No Cough Cardiovascular: No: Chest Pain, Palpitations Gastrointestinal: Abdominal Pain; No: Nausea, Vomiting Musculoskeletal: back pain (says she feels stiff) Objective Exam General Appearance: No Apparent Distress, Chronically ill HEENT: PERRL/EOMI, Other (Dry mouth with lips cracking, NGT in place with minimal output) Respiratory: Chest Non Tender, No Accessory Muscle Use, No Respiratory Distress; No Crackles; Wheezing (mild inspiratory wheeze heard around upper right lobe) Cardiovascular: No Murmur, Tachycardia Gastrointestinal: soft, no organomegaly, tenderness (lower quadrants; worse suprapubic and LLQ; overall improved when compared to last exam), other (ostomy is pink and viable, no output yet) Extremity: No Calf Tenderness, Pedal Edema (edema improved, 1+) Skin: Jaundice Assessment/Plan Assessment/Plan Assessment/Plan S/P: Colectomy - Sloan's Procedure with end Colostomy Takedown of splenic flexure Partial Omentectomy Appendectomy - open Abd washout - with 10 L * Pain is well managed today with Current medication (-02/14) * NG tube in place * Range of motion limited currently to only sitting up slowly * start sips of water, too early to advance small bowel will not have peristalsis yet * Encourage ambulation and IS use * Keep angel Catheter in place for I/O management Supervisory-Addendum Brief Verification & Attestation Participated in pt care: history, MDM, physical Personally performed: exam, history, MDM, supervision of care Care discussed with: Medical Student Procedures: n/a Verification and Attestation of Medical Student E/M Service A medical student performed and documented this service. I then reviewed and verified all information documented by the medical student and made modifications to such information, when appropriate. I personally performed a physical exam, medical decision making and then discussed any differences between the notes and made revisions as necessary to create one note. Eduardo Man , 02/17/23 , 09:44 ISAURO MENDEZ Feb 17, 2023 07:42 EDUARDO MAN DO Feb 17, 2023 09:44
[2023-02-17 08:10] VITALS: BP 110/59
[2023-02-17] MEDS: LACTATED RINGERS 1,000 ML IV SCH ×3 (08:17→23:55)
--- NOTE | 2023-02-17 10:21 | Anesthesia-General Post-Op ---
General Patient Condition Mental Status/LOC: Same as Preop Cardiovascular: Satisfactory Nausea/Vomiting: Absent Respiratory: Satisfactory Pain: Controlled Complications: Absent Post Op Complications Complications None Follow Up Care/Instructions Patient Instructions None needed. Anesthesia/Patient Condition Patient Condition Patient is doing well, no complaints, stable vital signs, no apparent adverse anesthesia problems. No complications reported per nursing. GINNA ARMSTRONG CRNA Feb 17, 2023 10:21
[2023-02-17] MEDS: ENOXAPARIN 40 MG/0.4 ML (LOVENOX) SYR SC SCH (11:52)
[2023-02-17 11:58] VITALS: BP 110/54
--- NOTE | 2023-02-17 14:38 | Progress Note ---
Subjective Subjective/Events-last exam Patient states that she is feeling better. She is up in the chair today. NG in place. NPO. Review of Systems General: Fatigue, Malaise Pulmonary: Dyspnea; No Cough Cardiovascular: Edema; No: Chest Pain, Palpitations Gastrointestinal: Nausea, Abdominal Pain; No: Vomiting Neurological: Weakness, Incoordination Objective Exam Last Set of Vital Signs Vital Signs Date Time Temp Pulse Resp B/P (MAP) Pulse Ox O2 Delivery O2 Flow Rate FiO2 02/17/23 11:58 37.1 112 19 110/54 (72) 93 Nasal Cannula 1.00 Capillary Refill : Less Than 3 Seconds I&O Intake and Output 02/17/23 00:00 Intake Total 4600 ml Output Total 600 ml Balance 4000 ml Intake Oral 300 ml IV Total 4300 ml Output Urine Total 400 ml Gastric Drainage Total 200 ml Drainage Total 0 ml # Voids 8 # Bowel Movements 5 General: Alert, Oriented X3, No Acute Distress HEENT: Other (NG in place draining dark green fluid) Lungs: Clear to Auscultation, Normal Air Movement Heart: Regular Rate, No Murmurs Abdomen: Soft, Other (moderate ttp around incisions and new stoma, stoma pink) Extremities: Other (2+ pitting edema bilaterally) Neuro: Normal Speech Results/Procedures Lab Laboratory Tests 02/17/23 05:05: White Blood Count 15.1H, Red Blood Count 2.96L, Hemoglobin 8.8L, Hematocrit 26L, Mean Corpuscular Volume 86, Mean Corpuscular Hemoglobin 30, Mean Corpuscular Hemoglobin Concent 35, Red Cell Distribution Width 13.5, Platelet Count 441H, Mean Platelet Volume 10.6, Immature Granulocyte % (Auto) 1, Neutrophils (%) (Auto) 91H, Lymphocytes (%) (Auto) 5L, Monocytes (%) (Auto) 3, Eosinophils (%) (Auto) 0, Basophils (%) (Auto) 0, Neutrophils # (Auto) 13.7H, Lymphocytes # (Auto) 0.8L, Monocytes # (Auto) 0.4, Eosinophils # (Auto) 0.0, Basophils # (Auto) 0.1, Immature Granulocyte # (Auto) 0.1, Sodium Level 144, Potassium Level 3.5L, Chloride Level 112H, Carbon Dioxide Level 19L, Anion Gap 13, Blood Urea Nitrogen 17, Creatinine 1.24, Estimat Glomerular Filtration Rate 54, B UN/Creatinine Ratio 14, Glucose Level 103, Calcium Level 7.4L, Corrected Calcium 9.3, Total Bilirubin 0.4, Aspartate Amino Transf (AST/SGOT) 26, Alanine Aminotransferase (ALT/SGPT) 17, Alkaline Phosphatase 57, Total Protein 4.4L, Albumin 1.6#L Microbiology 02/15/23 MRSA Screen - Final, Complete MRSA not isolated 02/11/23 Gram Stain - Final, Complete 02/11/23 Anaerobic Culture - Final, Complete Bacteroides ovatus 02/11/23 Surgical Culture - Final, Complete Escherichia coli Mixed Bacterial Roberta See Comments 02/10/23 Urine Culture - Final, Complete Lactobacillus species 02/10/23 Blood Culture - Final, Complete No growth Radiology Date of Exam:02/10/23 CT ABDOMEN/PELVIS W EXAMINATION: CT abdomen and pelvis with intravenous contrast. TECHNIQUE: Multiple contiguous axial images were obtained through the abdomen and pelvis after the uneventful administration of intravenous contrast. All CT scans use one or more of the following dose optimizing techniques: automated exposure control, MA and/or KvP adjustment based on patient size and exam type or iterative reconstruction. HISTORY: Left lower quadrant pain COMPARISON: None available. FINDINGS: Limited views of the lower thorax are unremarkable. The liver is normal without focal lesion. There is no biliary ductal dilation. Gallbladder is normal. Pancreas is normal. Spleen is normal. Adrenal glands are normal. The kidneys are normal. There is no hydronephrosis. Urinary bladder is normal. There is diverticulitis of the sigmoid colon. There is a fluid and gas collection associated with the sigmoid colon wall measuring 3.2 x 4.6 cm in keeping with an abscess. Small amount of free fluid is present. No free intraperitoneal air. The remainder of the bowel is normal. No abdominal or pelvic lymphadenopathy. Aorta is normal in caliber without aneurysm. There are no suspicious osseus lesions. IMPRESSION: 1. Sigmoid diverticulitis with a 3.2 x 4.6 cm abscess adjacent to the inflamed bowel. Dictated by: Dictated on workstation # [id number] Dict: 02/10/232202 Trans: 02/10/232203 [facility] [id number] Interpreted by: FLORINA MOTLEY MD Electronically signed by: FLORINA MOTLEY MD 02/10/232203 Assessment/Plan Assessment/Plan (1) Sepsis Status: Resolved Assessment & Plan: 02/14: Drain has been placed and draining purulent fluid, continue IV antibiotics and fluids, continue to monitor leukocytosis 02/16: WBC trending back up today, increase in abdominal pain, patient to have surgery today, NPO Qualifiers: Qualified Codes: A41.9 - Sepsis, unspecified organism (2) Diverticulitis of intestine with abscess Status: Acute Assessment & Plan: 02/14: General surgery Dr De Oliveira consulted, appreciate recommendations, drain in place 02/15: Starting to have some output, pain improving, continue to monitor drain output 02/16: Surgery today with Alvino 02/17: POD #1, iliostomy placed, drain in place, pain improving, NG in place, discussed the importance of using IS and getting up to chair and starting to w alk as soon as she can Qualifiers: Qualified Codes: K57.80 - Diverticulitis of intestine, part unspecified, with perforation and abscess without bleeding (3) Hypokalemia Status: Acute Assessment & Plan: 02/14: replaced and repeat level in AM (4) Hyponatremia Status: Resolved (5) Ileostomy in place Status: Acute Assessment & Plan: 02/17: Placed 02/16/23 ALLA RUIZ MD Feb 17, 2023 14:38
[2023-02-17] MEDS ORDERED: HYPOCHLOROUS ACID/NaCl (VASHE) 250 ML IR PRN (16:30)
[2023-02-17 16:34] VITALS: BP 110/60
[2023-02-17] MEDS: ACETAMINOPHEN 500 MG TAB (TYLENOL) PO PRN (17:30)
[2023-02-17 20:11] VITALS: BP 110/63
[2023-02-17 23:53] VITALS: BP 119/64
[2023-02-18] MEDS: metroNIDAZOLE 500MG/100ML IVPB 100 ML IV SCH ×2 (03:24→16:40)
[2023-02-18] MEDS: PIPERACILLIN SODIUM/TAZOBACTAM 4.5 GM in NS (IVPB) 100 ML IV SCH (03:24)
[2023-02-18 03:29] VITALS: BP 126/71
[2023-02-18] MEDS: morphine INJ 4 MG/ML 1 ML (VIAL/SYRINGE) IV PRN ×6 (04:58→23:37)
[2023-02-18 05:31] LABS: BASOPHILS % (AUTO) 0 % (0-10); EOSINOPHILS % (AUTO) 0 % (0-10); HEMATOCRIT 22 % (35-52); HEMOGLOBIN 7.8 g/dL (11.5-16.0); LYMPHOCYTES % (AUTO) 5 % (12-44); MEAN CORPUSCULAR HEMOGLOBIN 30 pg (25-34); MEAN CORPUSCULAR HGB CONC 35 g/dL (32-36); MEAN CORPUSCULAR VOLUME 86 fL (80-99); MEAN PLATELET VOLUME 10.2 fL (9.0-12.2); MONOCYTES # (AUTO) 0.6 10^3/uL (0.0-1.0); MONOCYTES % (AUTO) 4 % (0-12); NEUTROPHILS % (AUTO) 89 % (42-75); PLATELET COUNT 412 10^3/uL (130-400); WHITE BLOOD COUNT 17.9 10^3/uL (4.3-11.0)
[2023-02-18 05:54] LABS: ALBUMIN 1.7 GM/DL (3.2-4.5); BILIRUBIN,TOTAL 0.4 MG/DL (0.1-1.0); CALCIUM 7.6 MG/DL (8.5-10.1); CREATININE SERUM 1.06 MG/DL (0.60-1.30); POTASSIUM 3.4 MMOL/L (3.6-5.0); TOTAL PROTEIN 4.9 GM/DL (6.4-8.2)
[2023-02-18 07:55] VITALS: BP 125/69
--- NOTE | 2023-02-18 08:39 | Progress Note - Surgery ---
ISAURO MENDEZ 02/18/23 0839: Subjective Date Seen by a Provider: Feb 18, 2023 Time Seen by a Provider: 08:00 Subjective/Events-last exam Mrs Rey was seen this morning alone in her bed, she was eating ice chips and resting with wet towels on her neck and chest. She appears a little depresse d today and said she is feeling down from having her NG tube in and just from being "tied down in one spot most the day". She mentioned she has been spending most her day in the hospital chairs because its more comfortable and she is able to breath better when she is sitting up. She says her pain is really well managed and apart from her discomforts mentioned earlier she feels well today. She says that she was able to take ~150 steps yesterday and says she is pretty weak right now. Review of Systems General: No Chills, No Night Sweats; Fatigue; No Malaise; Appetite HEENT: No Head Aches, No Visual Changes, No Sore Throat Pulmonary: No Dyspnea, No Cough, No Pleuritic Chest Pain Cardiovascular: Orthopnea (says "its easier to breath when she sits up in a chair"), Edema; No: Chest Pain, Palpitations, Paroxysmal Noc. Dyspnea, Lt Headedness Gastrointestinal: No: Nausea, Vomiting, Abdominal Pain, Melena, Hematochezia Genitourinary: No Incontinence, No Hematuria Musculoskeletal: back pain (describes it as stiff); No: leg pain Neurological: Weakness; No: Numbness, Change in speech, Confusion Objective Exam Vital Signs Date Time Temp Pulse Resp B/P (MAP) Pulse Ox O2 Delivery O2 Flow Rate FiO2 02/18/23 07:55 36.6 98 18 125/69 (87) 91 Nasal Cannula 1.00 02/18/23 03:29 37.4 100 18 126/71 (89) 92 Nasal Cannula 1.00 02/17/23 23:53 36.9 99 18 119/64 (82) 92 Nasal Cannula 1.00 02/17/23 20:33 Room Air 02/17/23 20:11 37.3 102 18 110/63 (79) 94 Nasal Cannula 1.00 02/17/23 18:41 Nasal Cannula 1.00 02/17/23 18:00 37.5 02/17/23 17:30 38.6 02/17/23 16:34 38.0 108 18 110/60 (77) 96 Nasal Cannula 1.00 02/17/23 11:58 37.1 112 19 110/54 (72) 93 Nasal Cannula 1.00 I & O 02/18/23 07:00 Intake Total 100 ml Output Total 1700 ml Balance -1600 ml Capillary Refill : Less Than 3 Seconds General Appearance: Anxious, Chronically ill, Mild Distress HEENT: PERRL/EOMI, Moist Mucous Membranes, Pale Conjunctivae (L), Pale Conj unctivae (R); No Photophobia, No Scleral Icterus (L), No Scleral Icterus (R); Other (NGT in place with output (200ml)) Neck: Non Tender, Supple; No Lymphadenopathy (L), No Lymphadenopathy (R), No Thyromegaly Respiratory: Chest Non Tender, Lungs Clear, No Accessory Muscle Use, No Respiratory Distress; No Crackles Cardiovascular: Regular Rate, Rhythm, No Murmur Peripheral Pulses: 2+ Dorsalis Pedis (R), 2+ Left Dors-Pedis (L), 2+ Radial Pulses (R), 2+ Radial Pulses (L) Gastrointestinal: soft, tenderness (Tender around the site of her incisions, and says there is a "pulling feeling" on her left quadrants), other (ostomy is pink and viable, output ~50ml) Extremity: No Calf Tenderness, Pedal Edema (edema 2+ ~3mm); No Slow Capillary Refill Neurologic/Psychiatric: Alert, Oriented x3, Depressed Affect Skin: Warm/Dry; No Ecchymosis; Pallor; No Rash Lymphatic: No Adenopathy (cervical) Results Lab Laboratory Tests 02/18/23 05:05: White Blood Count 17.9H, Red Blood Count 2.61L, Hemoglobin 7.8L, Hematocrit 22L, Mean Corpuscular Volume 86, Mean Corpuscular Hemoglobin 30, Mean Corpuscular Hemoglobin Concent 35, Red Cell Distribution Width 13.9, Platelet Count 412H, Mean Platelet Volume 10.2, Immature Granulocyte % (Auto) 1, Neutrophils (%) (Auto) 89H, Lymphocytes (%) (Auto) 5L, Monocytes (%) (Auto) 4, Eosinophils (%) (Auto) 0, Basophils (%) (Auto) 0, Neutrophils # (Auto) 16.0H, Lymphocytes # (Auto) 1.0, Monocytes # (Auto) 0.6, Eosinophils # (Auto) 0.0, Basophils # (Auto) 0.0, Immature Granulocyte # (Auto) 0.3H, Sodium Level 147H, Potassium Level 3.4L , Chloride Level 113H, Carbon Dioxide Level 22, Anion Gap 12, Blood Urea Nitrogen 20H, Creatinine 1.06, Estimat Glomerular Filtration Rate 66, BUN/Creatinine Ratio 19, Glucose Level 122H, Calcium Level 7.6L, Corrected Calcium 9.4, Total Bilirubin 0.4, Aspartate Amino Transf (AST/SGOT) 32, Alanine Aminotransferase (ALT/SGPT) 18, Alkaline Phosphatase 62, Total Protein 4.9L, Albumin 1.7L Microbiology 02/15/23 MRSA Screen - Final, Complete MRSA not isolated 02/11/23 Gram Stain - Final, Complete 02/11/23 Anaerobic Culture - Final, Complete Bacteroides ovatus 02/11/23 Surgical Culture - Final, Complete Escherichia coli Mixed Bacterial Roberta See Comments 02/10/23 Urine Culture - Final, Complete Lactobacillus species 02/10/23 Blood Culture - Final, Complete No growth Assessment/Plan Assessment/Plan Assessment/Plan S/P: Colectomy - Sloan's Procedure with end Colostomy Takedown of splenic flexure Partial Omentectomy Appendectomy - open Abd washout - with 10 L * Pain is well managed today with Current medication (11/16) * Clamp NG tube and monitor pts nausea, she has started to flatulate and pass bowel movements into her colostomy. * Range of motion improving able to walk around ~150 steps yesterday * trial of liquid diet, too early to advance small bowel will not have peristalsis yet * continue to encourage ambulation and IS use * Keep angel Catheter in place for I/O management Anemia * Monitor Hgb, and transfuse if it drops below 7 (currently at 7.8) EDUARDO MAN DO 02/18/23 0950: Subjective Time Seen by a Provider: 09:18 Subjective/Events-last exam Pt seen and examined, states mild pain in LUQ. Denies N/V and tolerated water and ice chips; she is also getting some output in stoma. Review of Systems General: Fatigue Pulmonary: No Dyspnea, No Cough Cardiovascular: Orthopnea (says "its easier to breath when she sits up in a chair"), Edema; No: Chest Pain, Palpitations Gastrointestinal: Abdominal Pain, Other; No: Nausea, Vomiting Musculoskeletal: back pain (describes it as stiff) Neurological: Weakness Objective Exam General Appearance: Anxious, Chronically ill, Mild Distress HEENT: PERRL/EOMI, Other (NGT in place with output (200ml), looks like old blood (dark purple)) Respiratory: Chest Non Tender, Lungs Clear, Normal Breath Sounds, No Accessory Muscle Use, No Respiratory Distress Cardiovascular: Regular Rate, Rhythm, No Murmur Gastrointestinal: soft, tenderness (Tender around the site of her incisions, and says there is a "pulling feeling" on her left quadrants), other (ostomy is pink mildly edematous and viable, output ~50ml) Extremity: No Calf Tenderness, Pedal Edema (edema 2+ ~3mm) Neurologic/Psychiatric: Alert, Oriented x3, Depressed Affect Assessment/Plan Assessment/Plan Assessment/Plan Colectomy - Sloan's Procedure with end Colostomy Takedown of splenic flexure Partial Omentectomy Appendectomy - open Abd washout - with 10 L * Pain is well managed today with Current medication (11/16) * Clamp NG tube and monitor pts nausea, start clears and unclamp at 1800, if less than 300ml will d/c NGT. * continue to encourage ambulation and IS use * D/C angel Catheter Anemia * Monitor Hgb, and transfuse if it drops below 7 (currently at 7.8) * Will start Protonix IV Supervisory-Addendum Brief Verification & Attestation Participated in pt care: history, MDM, physical Personally performed: exam, history, MDM, supervision of care Care discussed with: Medical Student Procedures: n/a Verification and Attestation of Medical Student E/M Service A medical student performed and documented this service. I then reviewed and verified all information documented by the medical student and made modifications to such information, when appropriate. I personally performed a physical exam, medical decision making and then discussed any differences between the notes and made revisions as necessary to create one note. Eduardo Man , 02/18/23 , 09:50 ISAURO MENDEZ Feb 18, 2023 08:39 EDUARDO MAN DO Feb 18, 2023 09:50
[2023-02-18] MEDS: LACTATED RINGERS 1,000 ML IV SCH ×2 (09:51→20:06)
--- NOTE | 2023-02-18 11:03 | Progress Note ---
Subjective Subjective/Events-last exam Patient feeling better today. Advanced to CLD today. Tolerating ambulation Review of Systems General: Fatigue, Malaise Pulmonary: Dyspnea Cardiovascular: Edema; No: Chest Pain, Palpitations Gastrointestinal: Abdominal Pain; No: Nausea, Vomiting Neurological: Weakness, Incoordination; No: Confusion Objective Exam Last Set of Vital Signs Vital Signs Date Time Temp Pulse Resp B/P (MAP) Pulse Ox O2 Delivery O2 Flow Rate FiO2 02/18/23 09:00 Nasal Cannula 1.00 02/18/23 07:55 36.6 98 18 125/69 (87) 91 Capillary Refill : Less Than 3 Seconds I&O Intake and Output 02/18/23 00:00 Intake Total 250 ml Output Total 2025 ml Balance -1775 ml Intake Oral 50 ml IV Total 200 ml Output Urine Total 1175 ml Stool Total 50 ml Gastric Drainage Total 800 ml General: Alert, Oriented X3, No Acute Distress Lungs: Clear to Auscultation, Normal Air Movement Heart: Regular Rate, No Murmurs Abdomen: Soft, Other (mild ttp) Neuro: Normal Speech Results/Procedures Lab Laboratory Tests 02/18/23 05:05: White Blood Count 17.9H, Red Blood Count 2.61L, Hemoglobin 7.8L, Hematocrit 22L, Mean Corpuscular Volume 86, Mean Corpuscular Hemoglobin 30, Mean Corpuscular Hemoglobin Concent 35, Red Cell Distribution Width 13.9, Platelet Count 412H, Mean Platelet Volume 10.2, Immature Granulocyte % (Auto) 1, Neutrophils (%) (Auto) 89H, Lymphocytes (%) (Auto) 5L, Monocytes (%) (Auto) 4, Eosinophils (%) (Auto) 0, Basophils (%) (Auto) 0, Neutrophils # (Auto) 16.0H, Lymphocytes # (Auto) 1.0, Monocytes # (Auto) 0.6, Eosinophils # (Auto) 0.0, Basophils # (Auto) 0.0, Immature Granulocyte # (Auto) 0.3H, Sodium Level 147H, Potassium Level 3.4L , Chloride Level 113H, Carbon Dioxide Level 22, Anion Gap 12, Blood Urea Nitrogen 20H, Creatinine 1.06, Estimat Glomerular Filtration Rate 66, BUN/Creatinine Ratio 19, Glucose Level 122H, Calcium Level 7.6L, Corrected Calcium 9.4, Total Bilirubin 0.4, Aspartate Amino Transf (AST/SGOT) 32, Alanine Aminotransferase (ALT/SGPT) 18, Alkaline Phosphatase 62, Total Protein 4.9L, Albumin 1.7L Microbiology 02/15/23 MRSA Screen - Final, Complete MRSA not isolated 02/11/23 Gram Stain - Final, Complete 02/11/23 Anaerobic Culture - Final, Complete Bacteroides ovatus 02/11/23 Surgical Culture - Final, Complete Escherichia coli Mixed Bacterial Roberta See Comments 02/10/23 Urine Culture - Final, Complete Lactobacillus species 02/10/23 Blood Culture - Final, Complete No growth Radiology Date of Exam:02/10/23 CT ABDOMEN/PELVIS W EXAMINATION: CT abdomen and pelvis with intravenous contrast. TECHNIQUE: Multiple contiguous axial images were obtained through the abdomen and pelvis after the uneventful administration of intravenous contrast. All CT scans use one or more of the following dose optimizing techniques: automated exposure control, MA and/or KvP adjustment based on patient size and exam type or iterative reconstruction. HISTORY: Left lower quadrant pain COMPARISON: None available. FINDINGS: Limited views of the lower thorax are unremarkable. The liver is normal without focal lesion. There is no biliary ductal dilation. Gallbladder is normal. Pancreas is normal. Spleen is normal. Adrenal glands are normal. The kidneys are normal. There is no hydronephrosis. Urinary bladder is normal. There is diverticulitis of the sigmoid colon. There is a fluid and gas collection associated with the sigmoid colon wall measuring 3.2 x 4.6 cm in keeping with an abscess. Small amount of free fluid is present. No free intraperitoneal air. The remainder of the bowel is normal. No abdominal or pelvic lymphadenopathy. Aorta is normal in caliber without aneurysm. There are no suspicious osseus lesions. IMPRESSION: 1. Sigmoid diverticulitis with a 3.2 x 4.6 cm abscess adjacent to the inflamed bowel. Dictated by: Dictated on workstation # [id number] Dict: 02/10/232202 Trans: 02/10/232203 [facility] [id number] Interpreted by: FLORINA MOTLEY MD Electronically signed by: FLORINA MOTLEY MD 02/10/232203 Assessment/Plan Assessment/Plan (1) Sepsis Status: Resolved Assessment & Plan: 02/14: Drain has been placed and draining purulent fluid, continue IV antibiotics and fluids, continue to monitor leukocytosis 02/16: WBC trending back up today, increase in abdominal pain, patient to have surgery today, NPO 02/18: Advanced to CLD per surgery and continue to monitor Qualifiers: Qualified Codes: A41.9 - Sepsis, unspecified organism (2) Diverticulitis of intestine with abscess Status: Acute Assessment & Plan: 02/14: General surgery Dr De Oliveira consulted, appreciate recommendations, drain in place 02/15: Starting to have some output, pain improving, continue to monitor drain output 02/16: Surgery today with Alvino 02/17: POD #1, iliostomy placed, drain in place, pain improving, NG in place, discussed the importance of using IS and getting up to chair and starting to walk as soon as she can Qualifiers: Qualified Codes: K57.80 - Diverticulitis of intestine, part unspecified, with perforation and abscess without bleeding (3) Severe protein-calorie malnutrition Status: Acute (4) Hypokalemia Status: Acute Assessment & Plan: 02/14: replaced and repeat level in AM (5) Hyponatremia Status: Resolved (6) Ileostomy in place Status: Acute Assessment & Plan: 02/17: Placed 02/16/23 ALLA RUIZ MD Feb 18, 2023 11:03
[2023-02-18 11:12] VITALS: BP 120/65
[2023-02-18] MEDS: cefTRIAXone IV/IM 1,000 MG in NS (IVPB) 50 ML IV SCH (13:01)
[2023-02-18] MEDS: ENOXAPARIN 40 MG/0.4 ML (LOVENOX) SYR SC SCH (13:01)
[2023-02-18 16:18] VITALS: BP 124/78
[2023-02-18 19:28] VITALS: BP 134/82
[2023-02-18 23:34] VITALS: BP 137/71
[2023-02-19] MEDS: metroNIDAZOLE 500MG/100ML IVPB 100 ML IV SCH ×2 (04:29→16:09)
[2023-02-19 04:38] VITALS: BP 124/68
[2023-02-19] MEDS: morphine INJ 4 MG/ML 1 ML (VIAL/SYRINGE) IV PRN ×3 (05:20→12:16)
[2023-02-19 06:23] LABS: BASOPHILS % (AUTO) 0 % (0-10); EOSINOPHILS # (AUTO) 0.1 10^3/uL (0.0-0.3); EOSINOPHILS % (AUTO) 1 % (0-10); HEMATOCRIT 22 % (35-52); HEMOGLOBIN 7.4 g/dL (11.5-16.0); LYMPHOCYTES # (AUTO) 1.4 10^3/uL (1.0-4.0); LYMPHOCYTES % (AUTO) 9 % (12-44); MEAN CORPUSCULAR HEMOGLOBIN 29 pg (25-34); MEAN CORPUSCULAR HGB CONC 34 g/dL (32-36); MEAN CORPUSCULAR VOLUME 87 fL (80-99); MEAN PLATELET VOLUME 10.3 fL (9.0-12.2); MONOCYTES # (AUTO) 0.7 10^3/uL (0.0-1.0); MONOCYTES % (AUTO) 5 % (0-12); NEUTROPHILS # (AUTO) 12.9 10^3/uL (1.8-7.8); NEUTROPHILS % (AUTO) 84 % (42-75); PLATELET COUNT 378 10^3/uL (130-400); WHITE BLOOD COUNT 15.5 10^3/uL (4.3-11.0)
[2023-02-19 06:41] LABS: ALBUMIN 1.8 GM/DL (3.2-4.5); BILIRUBIN,TOTAL 0.4 MG/DL (0.1-1.0); CALCIUM 7.4 MG/DL (8.5-10.1); CREATININE SERUM 0.95 MG/DL (0.60-1.30); POTASSIUM 2.9 MMOL/L (3.6-5.0); TOTAL PROTEIN 5.3 GM/DL (6.4-8.2)
[2023-02-19 07:23] VITALS: BP 134/68
[2023-02-19] MEDS: LACTATED RINGERS 1,000 ML IV SCH (07:53)
[2023-02-19] MEDS: PANTOPRAZOLE 40 MG (PROTONIX) VIAL IV SCH (07:53)
--- NOTE | 2023-02-19 10:28 | Progress Note - Surgery ---
BRYCE JIMENES 02/19/23 1028: Subjective Date Seen by a Provider: Feb 19, 2023 Time Seen by a Provider: 09:00 Subjective/Events-last exam Patient is seen awake and alert lying in bed, family at bedside. Patient had her NG tube removed yesterday evening and was started on a clear liquid diet. She reports that she has been tolerating this change well without any nausea or vomiting. She reports that she has been using her IS as directed and has been ambulating to the chair and bathroom in her room. Patient does have b/l lower extremity edema, more pronounced on the right side. She notes that the edema is improved after laying in bed, or elevating her feet. Patient reports that she did have some coughing through the night after they pulled her NG tube, but that this has improved this morning. Patient reported having some abdominal pain this morning that she attributes to her coughing last night. She described it as an achey pain on the lateral portions of her upper abdomen, and states that the pain resolved after taking her pain medication. Patient has no other complaints. Review of Systems General: No Chills, No Night Sweats HEENT: No Visual Changes, No Eye Pain Pulmonary: Cough (slight cough last night, states improved this morning.) Cardiovascular: Edema (2+ pitting edema b/l lower extremities. Edema extends up to the thigh in the right LE, and to the knee in the left LE.); No: Chest Pain, Palpitations Gastrointestinal: No: Nausea, Vomiting, Abdominal Pain Genitourinary: No Dysuria, No Frequency Musculoskeletal: No: neck pain, back pain Neurological: No: Weakness, Numbness Objective Exam Vital Signs Date Time Temp Pulse Resp B/P (MAP) Pulse Ox O2 Delivery O2 Flow Rate FiO2 02/19/23 07:23 37.6 85 18 134/68 (90) 92 Nasal Cannula 1.00 02/19/23 06:26 Nasal Cannula 1.00 02/19/23 04:38 36.8 79 20 124/68 (86) 94 Nasal Cannula 1.00 02/18/23 23:34 37.0 85 20 137/71 (93) 92 Nasal Cannula 1.00 02/18/23 20:36 Nasal Cannula 1.00 02/18/23 19:29 Nasal Cannula 1.00 02/18/23 19:28 37.6 91 20 134/82 (99) 92 Nasal Cannula 1.00 02/18/23 16:18 37.6 94 18 124/78 (93) 90 Nasal Cannula 1.00 02/18/23 11:12 36.5 96 18 120/65 (83) 91 Nasal Cannula 1.00 I & O 02/19/23 07:00 Intake Total 1380 ml Output Total 1600 ml Balance -220 ml Capillary Refill : Less Than 3 Seconds General Appearance: No Apparent Distress, WD/WN, Anxious (Appears less anxious today) HEENT: PERRL/EOMI Neck: Non Tender, Supple Respiratory: Chest Non Tender, Lungs Clear, Normal Breath Sounds, No Accessory Muscle Use, No Respiratory Distress Cardiovascular: Regular Rate, Rhythm, No Murmur Peripheral Pulses: 2+ Dorsalis Pedis (R), 2+ Left Dors-Pedis (L), 2+ Radial P ulses (R), 2+ Radial Pulses (L) Gastrointestinal: soft, tenderness (Tender around the site of her incisions, and says there is a "pulling feeling" on her left quadrants), other (Output visible in ostomy bag, stoma appears pinkish red) Extremity: No Calf Tenderness, Pedal Edema (edema 2+b/l, extends to distal thigh on right LE, extends to knee on left LE) Neurologic/Psychiatric: Alert, Oriented x3 Skin: Warm/Dry, Pallor Lymphatic: No Adenopathy (cervical) Results Lab Laboratory Tests 02/19/23 05:45: White Blood Count 15.5H, Red Blood Count 2.52L, Hemoglobin 7.4L, Hematocrit 22L, Mean Corpuscular Volume 87, Mean Corpuscular Hemoglobin 29, Mean Corpuscular Hemoglobin Concent 34, Red Cell Distribution Width 14.3, Platelet Count 378, Mean Platelet Volume 10.3, Immature Granulocyte % (Auto) 1, Neutrophils (%) (Auto) 84H, Lymphocytes (%) (Auto) 9L, Monocytes (%) (Auto) 5, Eosinophils (%) (Auto) 1, Basophils (%) (Auto) 0, Neutrophils # (Auto) 12.9H, Lymphocytes # (Auto) 1.4, Monocytes # (Auto) 0.7, Eosinophils # (Auto) 0.1, Basophils # (Auto) 0.0, Immature Granulocyte # (Auto) 0.2H, Sodium Level 143, Potassium Level 2.9L, Chloride Level 108H, Carbon Dioxide Level 23, Anion Gap 12, Blood Urea Nitrogen 19H, Creatinine 0.95, Estimat Glomerular Filtration Rate 75, BUN/Creatinine Ratio 20, Glucose Level 115H, Calcium Level 7.4L, Corrected Calcium 9.2, Total Bilirubin 0.4, Aspartate Amino Transf (AST/SGOT) 31, Alanine Aminotransferase (ALT/SGPT) 20, Alkaline Phosphatase 73, Total Protein 5.3L, Albumin 1.8L Microbiology 02/15/23 MRSA Screen - Final, Complete MRSA not isolated 02/11/23 Gram Stain - Final, Complete 02/11/23 Anaerobic Culture - Final, Complete Bacteroides ovatus 02/11/23 Surgical Culture - Final, Complete Escherichia coli Mixed Bacterial Roberta See Comments 02/10/23 Urine Culture - Final, Complete Lactobacillus species 02/10/23 Blood Culture - Final, Complete No growth Assessment/Plan Assessment/Plan Assessment/Plan 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 Takedown of splenic flexure Partial Omentectomy Appendectomy - open Abd washout - with 10 L * Continue pain management, currently well controlled * NG tube pulled last night, patient started on clears, will continue to advance diet as tolerated * Encouraged patient to continue to use their IS and continue ambulating Anemia * Monitor Hg, transfuse as needed, measured at 7.4 this AM * Continue Protonix IV EDUARDO MAN DO 02/19/23 1312: Subjective Time Seen by a Provider: 11:17 Subjective/Events-last exam Pt seen and examined, no changes and she is tolerating clears. Review of Systems Pulmonary: Cough (slight cough last night, states improved this morning.) Cardiovascular: Edema (2+ pitting edema b/l lower extremities. Edema extends up to the thigh in the right LE, and to the knee in the left LE.); No: Chest Pain, Palpitations Gastrointestinal: Abdominal Pain (very minimal); No: Nausea, Vomiting Objective Exam General Appearance: No Apparent Distress, WD/WN, Anxious (Appears less anxious today) HEENT: PERRL/EOMI Respiratory: Chest Non Tender, Lungs Clear, Normal Breath Sounds, No Accessory Muscle Use, No Respiratory Distress Cardiovascular: Regular Rate, Rhythm, No Murmur Gastrointestinal: soft, tenderness (Tender around the site of her incisions, and says there is a "pulling feeling" on her left quadrants), other (Output visible in ostomy bag, stoma appears pinkish red) Extremity: Pedal Edema (edema 2+b/l, extends to distal thigh on right LE, extends to knee on left LE) Skin: Pallor Assessment/Plan Assessment/Plan Assessment/Plan 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 Takedown of splenic flexure Partial Omentectomy Appendectomy - open Abd washout - with 10 L * Continue pain management, currently well controlled * NG tube pulled last night, patient started on clears, will continue to advance diet as tolerated * Encouraged patient to continue to use their IS and continue ambulating Anemia * Monitor Hg, transfuse as needed, measured at 7.4 this AM * Continue Protonix IV Supervisory-Addendum Brief Verification & Attestation Participated in pt care: history, MDM, physical Personally performed: exam, history, MDM, supervision of care Care discussed with: Medical Student Procedures: n/a Verification and Attestation of Medical Student E/M Service A medical student performed and documented this service. I then reviewed and verified all information documented by the medical student and made modifications to such information, when appropriate. I personally performed a physical exam, medical decision making and then discussed any differences between the notes and made revisions as necessary to create one note. Eduardo Man , 02/19/23 , 13:12 BRYCE JIMENES Feb 19, 2023 10:28 EDUARDO MAN DO Feb 19, 2023 13:12
--- NOTE | 2023-02-19 10:40 | Progress Note - Hospitalist ---
Subjective HPI/CC On Admission Patient is a 48 year old female with history of diverticulosis and tendonitis who presented to the ED last night for LLQ abd pain radiating into her back. She reports being diagnosed with the flu on january 30 that caused her to be mostly bed ridden. She began to experience LLQ abd pain a week ago that has gradually worsened, She describes it as sharp in nature. She reports having a small BM yesterday with no blood. In the ED she was found to be tachycardic w/ mild leukocytosis, anion gap metabolic acidosis, hyponatrema, and hypokalemia. Toxicology was positive for canabinoids which patient endorses trying 2 weeks [address] [place] imaging in the ED revealed sigmoid diverticulitis w/ 3.2x4.6cm abscess adjacent to inflamed bowel. Subjective/Events-last exam Patient reports she had a rough night due to paroxysmal coughing that occurred after her NG tube was pulled. Previously there were no coughing problems. She did reports she got up a fair amount of nonpurulent sputum she has had no nausea or vomiting this morning. While she reports dysgeusia she is tolerating soda and Jell-O with no coughing or choking. She denies abdominal pain except when she is coughing and has had no reported chills or fever. Objective Exam Vital Signs Vital Signs Date Time Temp Pulse Resp B/P (MAP) Pulse Ox O2 Delivery O2 Flow Rate FiO2 02/19/23 07:23 37.6 85 18 134/68 (90) 92 Nasal Cannula 1.00 Capillary Refill : Less Than 3 Seconds General Appearance: Anxious, Chronically ill Respiratory: Chest Non Tender, Lungs Clear, Normal Breath Sounds, No Accessory Muscle Use, No Respiratory Distress Cardiovascular: Regular Rate, Rhythm, No Edema, No Gallop, No JVD, No Murmur, Normal Peripheral Pulses Gastrointestinal: Other (No significant distention noted no organomegaly appreciated. Wound VAC on adjacent skin without induration erythema left lower quadrant ileostomy draining dark bilious appearing nonbloody viscus stool.) Results/Procedures Lab Laboratory Tests 02/19/23 05:45 Patient resulted labs reviewed. Assessment/Plan Assessment and Plan Assess & Plan/Chief Complaint (1) Sepsis Status: Resolved Assessment & Plan: 02/14: Drain has been placed and draining purulent fluid, continue IV antibiotics and fluids, continue to monitor leukocytosis 02/16: WBC trending back up today, increase in abdominal pain, patient to have surgery today, NPO 02/18: Advanced to [facility] per surgery and continue to monitor Qualifiers: Qualified Codes: A41.9 - Sepsis, unspecified organism (2) Diverticulitis of intestine with abscess Status: Acute Assessment & Plan: 02/14: General surgery Dr De Oliveira consulted, appreciate recommendations, drain in place 02/15: Starting to have some output, pain improving, continue to monitor drain output 02/16: Surgery today with Alvino 02/17: POD #1, iliostomy placed, drain in place, pain improving, NG in place, discussed the importance of using IS and getting up to chair and starting to walk as soon as she can Qualifiers: Qualified Codes: K57.80 - Diverticulitis of intestine, part unspecified, with perforation and abscess without bleeding (3) Severe protein-calorie malnutrition 02/19: Postop day 3 considering baseline status doing as well as can be expected. We will replace potassium IV for level of 2.9 this morning. Patient tolerating liquids. Hemoglobin trending lower down to 7.6 without evidence for overt bleeding iron studies compatible with iron deficiency consideration for IV iron defer to Dr. De Oliveira. Status: Acute (4) Hypokalemia Status: Acute Assessment & Plan: 02/14: replaced and repeat level in AM (5) Hyponatremia Status: Resolved (6) Ileostomy in place Status: Acute Assessment & Plan: 02/17: Placed 02/16/23 MATT VALVERDE MD Feb 19, 2023 10:40
[2023-02-19 11:35] VITALS: BP 128/61
[2023-02-19] MEDS ORDERED: IRON SUCROSE 200 MG/10 ML (VENOFER) VIAL IV ONE (11:45)
[2023-02-19] MEDS: cefTRIAXone IV/IM 1,000 MG in NS (IVPB) 50 ML IV SCH (11:45)
[2023-02-19] MEDS: ENOXAPARIN 40 MG/0.4 ML (LOVENOX) SYR SC SCH (12:49)
[2023-02-19] MEDS: POTASSIUM CL 10MEQ/50ML IVPB 50 ML IV SCH ×3 (12:49→15:10)
[2023-02-19] MEDS: HYDROcodone/APAP 5 MG/325 MG (LORTAB) TAB PO PRN ×2 (15:10→20:54)
[2023-02-19 16:04] VITALS: BP 131/71
[2023-02-19 19:47] VITALS: BP 134/81
[2023-02-20] VITALS (7 sets, daily range): BP systolic 120–133; BP diastolic 64–76
[2023-02-20] MEDS: LACTATED RINGERS 1,000 ML IV SCH ×2 (00:43→17:51)
[2023-02-20] MEDS: HYDROcodone/APAP 5 MG/325 MG (LORTAB) TAB PO PRN ×5 (01:57→19:59)
[2023-02-20] MEDS: metroNIDAZOLE 500MG/100ML IVPB 100 ML IV SCH ×2 (01:57→17:47)
[2023-02-20 06:33] LABS: BASOPHILS % (AUTO) 0 % (0-10); EOSINOPHILS # (AUTO) 0.1 10^3/uL (0.0-0.3); EOSINOPHILS % (AUTO) 1 % (0-10); HEMATOCRIT 22 % (35-52); HEMOGLOBIN 7.3 g/dL (11.5-16.0); LYMPHOCYTES # (AUTO) 1.3 10^3/uL (1.0-4.0); LYMPHOCYTES % (AUTO) 10 % (12-44); MEAN CORPUSCULAR HEMOGLOBIN 29 pg (25-34); MEAN CORPUSCULAR HGB CONC 34 g/dL (32-36); MEAN CORPUSCULAR VOLUME 87 fL (80-99); MEAN PLATELET VOLUME 10.6 fL (9.0-12.2); MONOCYTES # (AUTO) 0.7 10^3/uL (0.0-1.0); MONOCYTES % (AUTO) 5 % (0-12); NEUTROPHILS # (AUTO) 10.9 10^3/uL (1.8-7.8); NEUTROPHILS % (AUTO) 81 % (42-75); PLATELET COUNT 394 10^3/uL (130-400); WHITE BLOOD COUNT 13.5 10^3/uL (4.3-11.0)
[2023-02-20 06:48] LABS: ALBUMIN 1.8 GM/DL (3.2-4.5); BILIRUBIN,TOTAL 0.5 MG/DL (0.1-1.0); CALCIUM 7.3 MG/DL (8.5-10.1); CREATININE SERUM 0.85 MG/DL (0.60-1.30); POTASSIUM 3.1 MMOL/L (3.6-5.0); TOTAL PROTEIN 5.3 GM/DL (6.4-8.2)
[2023-02-20] MEDS: PANTOPRAZOLE 40 MG (PROTONIX) VIAL IV SCH (08:08)
--- NOTE | 2023-02-20 10:57 | Progress Note - Surgery ---
BRYCE JIMENES 02/20/23 1057: Subjective Date Seen by a Provider: Feb 20, 2023 Time Seen by a Provider: 07:00 Subjective/Events-last exam Patient is awake and alert this morning, sitting in her chair, no family at bedside. Patient was started on soft diet yesterday, she reports that she has been eating small amounts, but that she is tolerating the diet well without any N/V. She states that she still does not have an appetite yet. She reports that last night and the night before she has been having a cough that has kept her up. She reports that it is a productive cough with clear to yellow sputum. She states that she has had some abdominal pain on the lateral portion of her left upper abdomen due to the cough, but that her pain is well controlled. She reports that the edema in her lower extremities is about the same as yesterday. The patient states they have been using their IS and have been ambulating. Patient has no other complaints. Review of Systems General: No Chills, No Night Sweats HEENT: No Head Aches, No Visual Changes Pulmonary: Cough (Productive, clear-yellow sputum) Cardiovascular: Edema (b/l LE edema); No: Chest Pain, Palpitations Gastrointestinal: No: Nausea, Vomiting Genitourinary: No Dysuria, No Hematuria Musculoskeletal: No: neck pain, back pain Neurological: No: Weakness, Numbness Objective Exam Vital Signs Date Time Temp Pulse Resp B/P (MAP) Pulse Ox O2 Delivery O2 Flow Rate FiO2 02/20/23 08:00 Room Air 02/20/23 07:35 37.2 94 20 133/70 (91) 94 Room Air 02/20/23 03:43 36.2 89 18 121/76 (91) 95 Room Air 02/20/23 00:09 37.2 90 18 129/70 (89) 95 Room Air 02/19/23 20:46 Room Air 02/19/23 19:47 36.7 90 19 134/81 (98) 94 Nasal Cannula 1.00 02/19/23 16:04 36.7 90 18 131/71 (91) 91 Nasal Cannula 1.00 02/19/23 11:35 37.0 80 18 128/61 (83) 96 Room Air I & O0 02/20/23 07:00 Intake Total 1530 ml Output Total 3000 ml Balance -1470 ml Capillary Refill : Less Than 3 Seconds General Appearance: No Apparent Distress, WD/WN, Anxious HEENT: PERRL/EOMI Neck: Non Tender, Supple Respiratory: Chest Non Tender, Lungs Clear, Normal Breath Sounds, No Accessory Muscle Use, No Respiratory Distress Cardiovascular: Regular Rate, Rhythm, No Murmur Peripheral Pulses: 2+ Dorsalis Pedis (R), 2+ Left Dors-Pedis (L), 2+ Radial Pulses (R), 2+ Radial Pulses (L) Gastrointestinal: soft, other (Output visible in ostomy bag, stoma appears pinkish red) Extremity: Pedal Edema (edema 2+b/l, extending up to mid thighs) Neurologic/Psychiatric: Alert, Oriented x3 Skin: Pallor Lymphatic: No Adenopathy (cervical) Results Lab Laboratory Tests 02/20/23 05:55: White Blood Count 13.5H, Red Blood Count 2.49L, Hemoglobin 7.3L, Hematocrit 22L, Mean Corpuscular Volume 87, Mean Corpuscular Hemoglobin 29, Mean Corpuscular Hemoglobin Concent 34, Red Cell Distribution Width 14.2, Platelet Count 394, Mean Platelet Volume 10.6, Immature Granulocyte % (Auto) 3, Neutrophils (%) (Auto) 81H, Lymphocytes (%) (Auto) 10L, Monocytes (%) (Auto) 5, Eosinophils (%) (Auto) 1, Basophils (%) (Auto) 0, Neutrophils # (Auto) 10.9H, Lymphocytes # (Auto) 1.3, Monocytes # (Auto) 0.7, Eosinophils # (Auto) 0.1, Basophils # (Auto) 0.0, Immature Granulocyte # (Auto) 0.4H, Sodium Level 139, Potassium Level 3.1L, Chloride Level 107, Carbon Dioxide Level 24, Anion Gap 8, Blood Urea Nitrogen 14, Creatinine 0.85, Estimat Glomerular Filtration Rate 86, BUN/Creatinine Ratio 16, Glucose Level 106H, Calcium Level 7.3L, Corrected Calcium 9.1, Total Bilirubin 0.5, Aspartate Amino Transf (AST/SGOT) 19, Alanine Aminotransferase (ALT/SGPT) 15, Alkaline Phosphatase 50, Total Protein 5.3L, Albumin 1.8L Microbiology 02/15/23 MRSA Screen - Final, Complete MRSA not isolated 02/11/23 Gram Stain - Final, Complete 02/11/23 Anaerobic Culture - Final, Complete Bacteroides ovatus 02/11/23 Surgical Culture - Final, Complete Escherichia coli Mixed Bacterial Roberta See Comments 02/10/23 Urine Culture - Final, Complete Lactobacillus species 02/10/23 Blood Culture - Final, Complete No growth Assessment/Plan Assessment/Plan Assessment/Plan 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 Takedown of splenic flexure Partial Omentectomy Appendectomy - open Abd washout - with 10 L * Continue pain management, currently well controlled * Started on soft diet yesterday, tolerating well will continue to advance diet as tolerated * Encouraged patient to continue to use their IS and continue ambulating Anemia * Monitor Hg, transfuse as needed, measured at 7.3 this AM * Continue Protonix IV EDUARDO MAN DO 02/20/23 1327: Subjective Time Seen by a Provider: 11:22 Subjective/Events-last exam Pt seen and examined, complains of being very swollen and having decreased appetite. However, her main complaint is "can't cough this stuff up and it hurts to cough. Review of Systems General: No Chills, No Night Sweats; Fatigue, Malaise Pulmonary: No Dyspnea; Cough (Productive, clear-yellow sputum) Cardiovascular: Edema (b/l LE edema); No: Chest Pain, Palpitations Gastrointestinal: Abdominal Pain; No: Nausea, Vomiting Objective Exam General Appearance: WD/WN, Anxious, Chronically ill HEENT: PERRL/EOMI Respiratory: Chest Non Tender, Lungs Clear, Normal Breath Sounds (?decrease at bases), No Accessory Muscle Use, No Respiratory Distress Cardiovascular: Regular Rate, Rhythm Gastrointestinal: soft, tenderness (midling mostly), other (Output visible in ostomy bag, stoma appears pinkish red, Wound VAC in place) Extremity: Pedal Edema (edema 2+b/l, extending up to mid thighs) Neurologic/Psychiatric: Alert, Oriented x3 Skin: Pallor Assessment/Plan Assessment/Plan Assessment/Plan Hypokalemia - getting supplements, may need to increase Anemia - will transfuse some iron 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 * Continue pain management, currently well controlled * Started on soft diet yesterday, tolerating well will add protein shakes * Encouraged patient to continue to use their IS and continue ambulating Supervisory-Addendum Brief Verification & Attestation Participated in pt care: history, MDM, physical Personally performed: exam, history, MDM, supervision of care Care discussed with: Medical Student Procedures: n/a Verification and Attestation of Medical Student E/M Service A medical student performed and documented this service. I then reviewed and verified all information documented by the medical student and made modifications to such information, when appropriate. I personally performed a physical exam, medical decision making and then discussed any differences between the notes and made revisions as necessary to create one note. Eduardo Man , 02/20/23 , 13:27 BRYCE JIMENES Feb 20, 2023 10:57 EDUARDO MAN DO Feb 20, 2023 13:27
[2023-02-20] MEDS: cefTRIAXone IV/IM 1,000 MG in NS (IVPB) 50 ML IV SCH (11:03)
--- NOTE | 2023-02-20 11:28 | Progress Note - Hospitalist ---
Subjective HPI/CC On Admission Date Seen by Provider: Feb 20, 2023 Time Seen by Provider: 10:15 Patient is a 48 year old female with history of diverticulosis and tendonitis who presented to the ED last night for LLQ abd pain radiating into her back. She reports being diagnosed with the flu on january 30 that caused her to be mostly bed ridden. She began to experience LLQ abd pain a week ago that has gradually worsened, She describes it as sharp in nature. She reports having a small BM yesterday with no blood. In the ED she was found to be tachycardic w/ mild leukocytosis, anion gap metabolic acidosis, hyponatrema, and hypokalemia. Toxicology was positive for canabinoids which patient endorses trying 2 weeks [address] [place] imaging in the ED revealed sigmoid diverticulitis w/ 3.2x4.6cm abscess adjacent to inflamed bowel. Subjective/Events-last exam Patient reports that food does not taste good but she is eating anyway without nausea or vomiting. Still feeling weak denies chest pain shortness of breath night sweats chills or fever. Objective Exam Vital Signs Vital Signs Date Time Temp Pulse Resp B/P (MAP) Pulse Ox O2 Delivery O2 Flow Rate FiO2 02/20/23 08:00 Room Air 02/20/23 07:35 37.2 94 20 133/70 (91) 94 02/19/23 19:47 1.00 Capillary Refill : Less Than 3 Seconds General Appearance: No Apparent Distress, Chronically ill, Other (Pallorous unchanged from yesterday) Respiratory: Chest Non Tender, Lungs Clear, Normal Breath Sounds, No Accessory Muscle Use, No Respiratory Distress Cardiovascular: Regular Rate, Rhythm, No Edema, No Gallop, No JVD, No Murmur, Normal Peripheral Pulses Gastrointestinal: Other ( wound VAC on no adjacent erythema or induration bowel sounds positive no distention.) Results/Procedures Lab Laboratory Tests 02/20/23 05:55 Patient resulted labs reviewed. Assessment/Plan Assessment and Plan Assess & Plan/Chief Complaint (1) Sepsis Status: Resolved Assessment & Plan: 02/14: Drain has been placed and draining purulent fluid, continue IV antibiotics and fluids, continue to monitor leukocytosis 02/16: WBC trending back up today, increase in abdominal pain, patient to have surgery today, NPO 02/18: Advanced to [facility] per surgery and continue to monitor Qualifiers: Qualified Codes: A41.9 - Sepsis, unspecified organism (2) Diverticulitis of intestine with abscess Status: Acute Assessment & Plan: 02/14: General surgery Dr De Oliveira consulted, appreciate recommendations, drain in place 02/15: Starting to have some output, pain improving, continue to monitor drain output 02/16: Surgery today with Alvino 02/17: POD #1, iliostomy placed, drain in place, pain improving, NG in place, discussed the importance of using IS and getting up to chair and starting to walk as soon as she can Qualifiers: Qualified Codes: K57.80 - Diverticulitis of intestine, part unspecified, with perforation and abscess without bleeding (3) Severe protein-calorie malnutrition 02/19: Postop day 3 considering baseline status doing as well as can be expected. We will replace potassium IV for level of 2.9 this morning. Patient tolerating liquids. Hemoglobin trending lower down to 7.6 without evidence for overt ble eding iron studies compatible with iron deficiency consideration for IV iron defer to Dr. De Oliveira. 02/20: Postop day 4 condition slowly improving potassium up to 3.1 we will switch to oral replacement. She will be due for another dose of iron sucrose tomorrow which will need to be ordered. Status: Acute (4) Hypokalemia Status: Acute Assessment & Plan: 02/14: replaced and repeat level in AM (5) Hyponatremia Status: Resolved (6) Ileostomy in place Status: Acute Assessment & Plan: 02/17: Placed 02/16/23 MATT VALVERDE MD Feb 20, 2023 11:28
[2023-02-20] MEDS ORDERED: KCL 8 MEQ (MICRO K) TABLET PO ONE (11:30)
[2023-02-20] MEDS: ENOXAPARIN 40 MG/0.4 ML (LOVENOX) SYR SC SCH (12:05)
[2023-02-20] MEDS ORDERED: EPINEPHrine INJECTION 1 MG/ML AMP IM PRN (12:15)
[2023-02-20] MEDS ORDERED: IRON DEXTRAN INJECTION 1,000 MG in NS (IVPB) 250 ML IV ONE (12:15)
[2023-02-20] MEDS ORDERED: RT-ALBUTEROL SULF 2.5 MG/3 ML PRE-MIX VIAL IH PRN (12:15)
[2023-02-20] MEDS ORDERED: HYDROCORTISONE 100 MG/2 ML (Solu-CORTEF) VIAL IV PRN (12:15)
[2023-02-20] MEDS ORDERED: IRON DEXTRAN INJECTION 25 MG in NS (IVPB) 5.75 ML IV ONE (12:15)
[2023-02-20] MEDS ORDERED: FUROSEMIDE 40 MG/4 ML INJ (LASIX) IVP ONE (12:15)
[2023-02-20] MEDS ORDERED: diphenhydrAMINE 50 MG/ML INJ (BENADRYL) IV PRN (12:15)
[2023-02-20] MEDS ORDERED: RT-ALBUTEROL/IPRATROPIUM 3 ML (DUONEB) VIAL INH PRN (12:30)
[2023-02-20] MEDS: NS IV 500 ML 500 ML IV SCH (12:52)
[2023-02-20] MEDS: RT-ALBUTEROL/IPRATROPIUM 3 ML (DUONEB) VIAL INH SCH ×2 (15:08→20:38)
[2023-02-20] MEDS: KCL 8 MEQ (MICRO K) TABLET PO SCH (17:47)
[2023-02-21] VITALS (10 sets, daily range): BP systolic 113–129; BP diastolic 56–78
[2023-02-21] MEDS: HYDROcodone/APAP 5 MG/325 MG (LORTAB) TAB PO PRN ×5 (02:16→21:17)
[2023-02-21] MEDS: metroNIDAZOLE 500MG/100ML IVPB 100 ML IV SCH ×2 (03:37→15:45)
[2023-02-21 06:04] LABS: BASOPHILS % (AUTO) 0 % (0-10); EOSINOPHILS # (AUTO) 0.1 10^3/uL (0.0-0.3); EOSINOPHILS % (AUTO) 1 % (0-10); LYMPHOCYTES # (AUTO) 1.5 10^3/uL (1.0-4.0); LYMPHOCYTES % (AUTO) 9 % (12-44); MEAN CORPUSCULAR HEMOGLOBIN 30 pg (25-34); MEAN CORPUSCULAR HGB CONC 35 g/dL (32-36); MEAN CORPUSCULAR VOLUME 85 fL (80-99); MEAN PLATELET VOLUME 11.2 fL (9.0-12.2); MONOCYTES # (AUTO) 0.6 10^3/uL (0.0-1.0); MONOCYTES % (AUTO) 4 % (0-12); NEUTROPHILS % (AUTO) 83 % (42-75); PLATELET COUNT 375 10^3/uL (130-400); WHITE BLOOD COUNT 15.7 10^3/uL (4.3-11.0)
[2023-02-21 06:12] LABS: HEMATOCRIT 20 % (35-52); HEMOGLOBIN 6.9 g/dL (11.5-16.0)
[2023-02-21] MEDS: NS IV 500 ML 500 ML IV SCH ×2 (06:16→22:51)
[2023-02-21] MEDS: RT-ALBUTEROL/IPRATROPIUM 3 ML (DUONEB) VIAL INH SCH ×4 (06:19→19:03)
[2023-02-21 06:24] LABS: ALBUMIN 1.7 GM/DL (3.2-4.5); BILIRUBIN,TOTAL 0.3 MG/DL (0.1-1.0); CALCIUM 7.3 MG/DL (8.5-10.1); CREATININE SERUM 0.79 MG/DL (0.60-1.30); POTASSIUM 2.7 MMOL/L (3.6-5.0)
[2023-02-21 06:46] LABS: NEUTROPHILS % (MANUAL) 92 %
[2023-02-21 06:47] LABS: ANISOCYTOSIS SLIGHT; LYMPHOCYTES % (MANUAL) 6 %; MONOCYTES % (MANUAL) 2 %; NUCLEATED RED BLOOD CELLS 2; PLATELET CLUMPS OCCASIONAL
[2023-02-21] MEDS ORDERED: NS IV 500 ML 500 ML IV SCH ×2 (07:15)
[2023-02-21] MEDS ORDERED: POTASSIUM CL 10MEQ/50ML IVPB 50 ML IV SCH (07:15)
[2023-02-21] MEDS ORDERED: MAGNESIUM 1 GM/100 ML IVPB 100 ML IV ONE ×3 (07:30→14:13)
[2023-02-21] MEDS: PANTOPRAZOLE 40 MG (PROTONIX) VIAL IV SCH (08:45)
[2023-02-21] MEDS: KCL 8 MEQ (MICRO K) TABLET PO SCH ×2 (08:45→17:40)
[2023-02-21] MEDS ORDERED: NS IV 500 ML 500 ML IV PRN (08:45)
--- NOTE | 2023-02-21 08:56 | Progress Note - Surgery ---
ISAURO MENDEZ 02/21/23 0856: Subjective Date Seen by a Provider: Feb 21, 2023 Time Seen by a Provider: 06:35 Subjective/Events-last exam Pt was seen lying in bed with fan on and sitting next to her, was alert and oriented, but mildly anxious because nursing had come placed a blood type wrist band, was upset because he thought they shouldve checked her blood type before going into surgery. they calmed down as the exam continued, she mentioned that the lasix helped with her edema and that she felt like it was going down, also that the urine yesterday was a dark coffee brown color but today it was back to being yellow. She said she had some stool come out her rectum this morning, but apart from that she has no pain today rating herself 0/10. She continues to tolerate her soft diet well, she denies dizziness, headache, myalgia, chills, fevers, abdomen pain, n/v/d, chest pain, or SOB. The last time she coughed was early this morning but she says she hasnt had any sputum production since starting breathing treatments. Review of Systems General: No Chills, No Night Sweats; Fatigue; No Malaise; Appetite (still doesnt have appetite ) HEENT: No Head Aches, No Visual Changes Pulmonary: No Dyspnea; Cough (no sputum production, lessened frequency); No Pleuritic Chest Pain Cardiovascular: Edema; No: Chest Pain, Palpitations, Lt Headedness Gastrointestinal: Abdominal Pain (left quadrants only cause discomfort if she is staraining herself i.e coughing); No: Nausea, Vomiting, Constipation, Melena, Hematochezia Genitourinary: No Dysuria; Frequency (increased with lasix); No Retention Musculoskeletal: back pain (reports back feeling stiff); No: leg pain, foot pain Neurological: No: Weakness, Numbness, Change in speech, Confusion Objective Exam Vital Signs Date Time Temp Pulse Resp B/P (MAP) Pulse Ox O2 Delivery O2 Flow Rate FiO2 02/21/23 07:45 36.2 95 18 129/76 (93) 92 Room Air 02/21/23 06:19 93 Room Air 02/21/23 03:59 36.8 83 18 120/73 (89) 93 Room Air 02/21/23 02:16 36.2 02/21/23 00:23 36.2 93 18 122/70 (87) 94 Room Air 02/20/23 20:38 95 Room Air 0.00 02/20/23 19:55 Room Air 02/20/23 19:08 36.3 86 18 128/75 (92) 96 Room Air 02/20/23 15:30 36.4 98 19 132/74 (93) 99 Room Air 02/20/23 15:08 96 Room Air 0.00 02/20/23 12:29 96 Room Air 0.00 02/20/23 12:11 37.0 84 95 21 02/20/23 11:52 95 Room Air 0.00 02/20/23 11:26 37.0 79 20 120/64 (82) 97 Room Air I & O0 02/21/23 07:00 Intake Total 2740 ml Output Total 4100 ml Balance -1360 ml Capillary Refill : Less Than 3 Seconds General Appearance: WD/WN, Anxious, Chronically ill, Mild Distress HEENT: PERRL/EOMI, Moist Mucous Membranes, Pale Conjunctivae (L), Pale Conjunctivae (R); No Photophobia, No Scleral Icterus (L), No Scleral Icterus (R) Neck: Non Tender, Supple Respiratory: Chest Non Tender, Lungs Clear, No Accessory Muscle Use, No Respiratory Distress; No Crackles; Decreased Breath Sounds (right base < left ); No Wheezing Cardiovascular: Regular Rate, Rhythm, No Murmur Peripheral Pulses: 2+ Dorsalis Pedis (R), 2+ Left Dors-Pedis (L), 2+ Radial Pulses (R), 2+ Radial Pulses (L) Gastrointestinal: non tender, soft; No distended, No guarding; tenderness, other (Output visible in ostomy bag, stoma appears pinkish red, Wound VAC in derick ce) Extremity: No Calf Tenderness, Pedal Edema (edema 2+ b/l ) Neurologic/Psychiatric: Alert, Oriented x3 Skin: Diaphoresis, Pallor Lymphatic: No Adenopathy (anterior cervical) Results Lab Laboratory Tests 02/21/23 05:20: White Blood Count 15.7H, Red Blood Count 2.31L, Hemoglobin 6.9*L, Hematocrit 20*L, Mean Corpuscular Volume 85, Mean Corpuscular Hemoglobin 30, Mean Corpuscular Hemoglobin Concent 35, Red Cell Distribution Width 14.0, Platelet Count 375, Mean Platelet Volume 11.2, Immature Granulocyte % (Auto) 3, Neutrophils (%) (Auto) 83H, Lymphocytes (%) (Auto) 9L, Monocytes (%) (Auto) 4, Eosinophils (%) (Auto) 1, Basophils (%) (Auto) 0, Neutrophils # (Auto) 13.0H, Lymphocytes # (Auto) 1.5, Monocytes # (Auto) 0.6, Eosinophils # (Auto) 0.1, Basophils # (Auto) 0.0, Immature Granulocyte # (Auto) 0.5H, Neutrophils % (Manual) 92, Lymphocytes % (Manual) 6, Monocytes % (Manual) 2, Nucleated Red Blood Cells 2, Clumped Platelets OCCASIONAL, Anisocytosis SLIGHT, Sodium Level 138, Potassium Level 2.7L, Chloride Level 105, Carbon Dioxide Level 22, Anion Gap 11, Blood Urea Nitrogen 8, Creatinine 0.79, Estimat Glomerular Filtration Rate 93, BUN/Creatinine Ratio 10, Glucose Level 112H, Calcium Level 7.3L, Corrected Calcium 9.1, Magnesium Level 1.7, Total Bilirubin 0.3, Aspartate Amino Transf (AST/SGOT) 15, Alanine Aminotransferase (ALT/SGPT) 9, Alkaline Phosphatase 46, Total Protein 5.0L, Albumin 1.7L Microbiology 02/15/23 MRSA Screen - Final, Complete MRSA not isolated 02/11/23 Gram Stain - Final, Complete 02/11/23 Anaerobic Culture - Final, Complete Bacteroides ovatus 02/11/23 Surgical Culture - Final, Complete Escherichia coli Mixed Bacterial Roberta See Comments 02/10/23 Urine Culture - Final, Complete Lactobacillus species 02/10/23 Blood Culture - Final, Complete No growth Assessment/Plan Assessment/Plan Assessment/Plan Hypokalemia Anemia * getting supplements, at 2.7 today, will need to increase dosage * Was given iron transfusion, current Hgb today is 6.9, order blood transfusion 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 * continue on IV ceftriaxone and IV Metronidazole * Encouraged patient to continue to use their IS and continue ambulating JUSTIN DE OLIVEIRA DO 02/21/23 1347: Subjective Time Seen by a Provider: 10:08 Subjective/Events-last exam Pt seen and examined, she actually looks better than yesterday. Pt is still anxious, but got some Ativan and is doing better. States she is starting to drink some protein shakes. Review of Systems General: Fatigue, Appetite (still doesnt have appetite ) Pulmonary: No Dyspnea; Cough (no sputum production, lessened frequency); No Pleuritic Chest Pain Cardiovascular: Edema; No: Chest Pain, Palpitations Gastrointestinal: Abdominal Pain (left quadrants only cause discomfort if she is staraining herself i.e coughing); No: Nausea, Vomiting Genitourinary: No Dysuria; Frequency (increased with lasix) Musculoskeletal: back pain (reports back feeling stiff) Objective Exam General Appearance: Anxious, Chronically ill, Mild Distress HEENT: PERRL/EOMI, Moist Mucous Membranes, Pale Conjunctivae (L), Pale Conjunctivae (R) Respiratory: Lungs Clear, No Accessory Muscle Use, No Respiratory Distress, Decreased Breath Sounds (right base < left ) Cardiovascular: Regular Rate, Rhythm, No Murmur Gastrointestinal: non tender, soft; No distended, No guarding; tenderness, other (Output visible in ostomy bag, stoma appears pinkish red, Wound VAC in place) Extremity: No Calf Tenderness, Pedal Edema (edema 2+ b/l and up thighs) Neurologic/Psychiatric: Alert, Oriented x3 Skin: Pallor Assessment/Plan Assessment/Plan Assessment/Plan Hypokalemia * getting supplements, at 2.7 today, started ICU K+ protocol Anemia * Was given iron transfusion, current Hgb today is 6.9, currently receiving blood transfusion will order a dose of Lasix after transfusion 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 * continue on IV ceftriaxone and IV Metronidazole * Encouraged patient to continue to use their IS and continue ambulating Supervisory-Addendum Brief Verification & Attestation Participated in pt care: history, MDM, physical Personally performed: exam, history, MDM, supervision of care Care discussed with: Medical Student Procedures: n/a Verification and Attestation of Medical Student E/M Service A medical student performed and documented this service. I then reviewed and v erified all information documented by the medical student and made modifications to such information, when appropriate. I personally performed a physical exam, medical decision making and then discussed any differences between the notes and made revisions as necessary to create one note. Justin De Oliveira , 02/21/23 , 13:47 ISAURO MENDEZ Feb 21, 2023 08:56 JUSTIN DE OLIVEIRA DO Feb 21, 2023 13:47
[2023-02-21] MEDS: LACTATED RINGERS 1,000 ML IV SCH ×2 (10:43→17:40)
--- NOTE | 2023-02-21 11:05 | Progress Note - Hospitalist ---
PAZ SANTANA 02/21/23 1105: Subjective HPI/CC On Admission Patient is a 48 year old female with history of diverticulosis and tendonitis who presented to the ED last night for LLQ abd pain radiating into her back. She reports being diagnosed with the flu on january 30 that caused her to be mostly bed ridden. She began to experience LLQ abd pain a week ago that has gradually worsened, She describes it as sharp in nature. She reports having a small BM yesterday with no blood. In the ED she was found to be tachycardic w/ mild leukocytosis, anion gap metabolic acidosis, hyponatrema, and hypokalemia. Toxicology was positive for canabinoids which patient endorses trying 2 weeks ago in [place]. CT imaging in the ED revealed sigmoid diverticulitis w/ 3.2x4.6cm abscess adjacent to inflamed bowel. Subjective/Events-last exam Patient was awake sitting in bed when seen this morning. She was rather anxious and reports still having significant diffuse abd pain. She reports diminished appetite but is trying to eat as able. She is urinating well. Her colostomy bag is in place with stool/gas present in the bag. Her Wound vac is in place with serosanguinous fluid present. in the tubing/machine. Her Hgb has been in the 7's for the past few days but dropped to 6.9 this morning. She reports Fatigue and mild SOB. She denies LH, CP, palpitatons. Review of Systems General: No Chills; Fatigue; No Appetite (decreased) HEENT: No Head Aches Pulmonary: Dyspnea; No Cough Cardiovascular: No: Chest Pain, Palpitations Gastrointestinal: Abdominal Pain; No: Nausea, Vomiting Genitourinary: No Dysuria, No Hematuria Neurological: No: Weakness, Numbness Objective Exam Vital Signs Vital Signs Date Time Temp Pulse Resp B/P (MAP) Pulse Ox O2 Delivery O2 Flow Rate FiO2 02/21/23 10:11 96 Room Air 02/21/23 09:55 36.8 86 20 127/78 02/20/23 20:38 0.00 02/20/23 12:11 21 Capillary Refill : Less Than 3 Seconds General Appearance: WD/WN, Anxious Respiratory: Lungs Clear, Normal Breath Sounds, No Accessory Muscle Use, No Respiratory Distress Cardiovascular: Regular Rate, Rhythm, No Murmur Gastrointestinal: Normal Bowel Sounds, Other (Midline wound with wound vac in place. Serosanguinous drainage present in wound vac. No spreading erythema. ) Extremity: Normal Capillary Refill, Non Tender, No Calf Tenderness, Swelling (2+ pitting edema bilaterally) Neurologic/Psychiatric: Alert, Oriented x3, No Motor/Sensory Deficits Skin: Normal Color, Warm/Dry Lymphatic: No Adenopathy Results/Procedures Lab Laboratory Tests 02/21/23 05:20 Patient resulted labs reviewed. Assessment/Plan Assessment and Plan Assess & Plan/Chief Complaint Day 5 S/P Colectomy w/ end ileostomy, appendectomy, and omentectomy -Continue abx. Control pain. Encourage mobility as tolerated. -Soft diets and advance as able. -Would vac in place. Wound care helping manage. -Monitor labs Anemia -Hgb 6.9 today. Will transfuse 1 unit pRBC today. Likely multi-factorial second to procedure and possible dilutional component -S/P IV iron infusion Sepsis 2nd to diverticulitis w/ abscess -Pt met SIRS criteria with tachycardia, leukocytosis, and suspsected source of infection -02/10 CT revealed sigmoi diverticulitis with 3.2x4.6cm abscess adjacent to inflamed bowel. -Ceftriaxone 1g Q24 hr & Metronidazole 0.5G Q12 hr. Hypokalemia -2.7 today. Will replace and monitor. Metabolic acidosis w/ high anion gap -resolved Hyponatremia -Improved after IVF. Monitor Diet: soft diet DVT Proph: loveyannx KAREN TRACY DO 02/22/23 0442: Supervisory-Addendum Brief Verification & Attestation Participated in pt care: history, MDM, physical Personally performed: exam, history, MDM, supervision of care Care discussed with: Medical Student Procedures: n/a Results interpretation: Verified all documentation Verification and Attestation of Medical Student E/M Service A medical student performed and documented this service in my presence. I reviewed and verified all information documented by the medical student and made modifications to such information, when appropriate. I personally performed the physical exam and medical decision making. Karen Tracy, Feb 22, 2023,04:42 PAZ SANTANA Feb 21, 2023 11:05 KAREN TRACY DO Feb 22, 2023 04:42
--- NOTE | 2023-02-21 11:15 | Physical Therapy Progress Note ---
Therapy Progress Note Patient reports she is ambulating with family and nursing staff in hallway 3- 4/day. No skilled PT indicated at this time. JANET TALLEY PT Feb 21, 2023 11:15
[2023-02-21] MEDS ORDERED: FUROSEMIDE 40 MG/4 ML INJ (LASIX) IVP NR (12:00)
[2023-02-21] MEDS: cefTRIAXone IV/IM 1,000 MG in NS (IVPB) 50 ML IV SCH (12:02)
[2023-02-21] MEDS: ENOXAPARIN 40 MG/0.4 ML (LOVENOX) SYR SC SCH (12:02)
[2023-02-21] MEDS: POTASSIUM CL 10MEQ/50ML IVPB 50 ML IV SCH ×4 (13:05→17:40)
--- NOTE | 2023-02-21 13:05 | Wound Care Assessment ---
Wound Care Assessment Date Seen by Provider: Feb 21, 2023 Time Seen by Provider: 13:00 Chief Complaint Midline abdominal incision s/p Balaji's procedure with endo colostomy HPI This pleasant 48 year old presents to hospital with sigmoid abscess with subsequent perforation. Drain attempted, then surgery for Sloan's procedure with end colostomy subsequently. Patient with midline surgical wound. Wound healing will be complicated by anemia (post-operative), severe PEM, tobaccoism, obesity. She does not have insurance and is attempting to fill out paperwork for [employer] services. If allowable, we will see in follow up upon d/c home. Mary wound vac may be an option as well. She is currently receiving PRBC's to treat her anemia. She does have severe PEM and is not yet tolerating PO well. Smoking Status: Current Everyday Smoker (at least 1 ppd since she was 11) Recreational Drug Use: Yes (marijuana) Alcohol Use: Denies Use Review of Systems General: Appetite (decreased) Gastrointestinal: Nausea, Abdominal Pain Neurological: Weakness Exam Vital Signs Date Time Temp Pulse Resp B/P (MAP) Pulse Ox O2 Delivery O2 Flow Rate FiO2 02/21/23 11:56 35.9 93 20 114/68 93 Room Air 02/20/23 20:38 0.00 02/20/23 12:11 21 Capillary Refill : Less Than 3 Seconds General Appearance: WD/WN, obese HEENT: other (normal hearing) Neck: full range of motion Cardiovascular: no edema Respiratory: no respiratory distress, no accessory muscle use Extremities: no pedal edema Neurologic/Psychiatric: alert, normal mood/affect, oriented x 3 Wound assessment: 18.5x5x2.6cm. The epithelialization is none. There is no tunneling or undermining. Drainage is large and serosanguinous. Granulation is small and pink. Necrotic is medium and sough. The margins show epibole. Results Laboratory Tests 02/21/23 05:20: White Blood Count 15.7H, Red Blood Count 2.31L, Hemoglobin 6.9*L, Hematocrit 20*L, Mean Corpuscular Volume 85, Mean Corpuscular Hemoglobin 30, Mean Corpuscular Hemoglobin Concent 35, Red Cell Distribution Width 14.0, Platelet Count 375, Mean Platelet Volume 11.2, Immature Granulocyte % (Auto) 3, Neutrophils (%) (Auto) 83H, Lymphocytes (%) (Auto) 9L, Monocytes (%) (Auto) 4, Eosinophils (%) (Auto) 1, Basophils (%) (Auto) 0, Neutrophils # (Auto) 13.0H, Lymphocytes # (Auto) 1.5, Monocytes # (Auto) 0.6, Eosinophils # (Auto) 0.1, Baso phils # (Auto) 0.0, Immature Granulocyte # (Auto) 0.5H, Neutrophils % (Manual) 92, Lymphocytes % (Manual) 6, Monocytes % (Manual) 2, Nucleated Red Blood Cells 2, Clumped Platelets OCCASIONAL, Anisocytosis SLIGHT, Sodium Level 138, Potassium Level 2.7L, Chloride Level 105, Carbon Dioxide Level 22, Anion Gap 11, Blood Urea Nitrogen 8, Creatinine 0.79, Estimat Glomerular Filtration Rate 93, BUN/Creatinine Ratio 10, Glucose Level 112H, Calcium Level 7.3L, Corrected Calcium 9.1, Magnesium Level 1.7, Total Bilirubin 0.3, Aspartate Amino Transf (AST/SGOT) 15, Alanine Aminotransferase (ALT/SGPT) 9, Alkaline Phosphatase 46, Total Protein 5.0L, Albumin 1.7L Microbiology 02/15/23 MRSA Screen - Final, Complete MRSA not isolated 02/11/23 Gram Stain - Final, Complete 02/11/23 Anaerobic Culture - Final, Complete Bacteroides ovatus 02/11/23 Surgical Culture - Final, Complete Escherichia coli Mixed Bacterial Roberta See Comments 02/10/23 Urine Culture - Final, Complete Lactobacillus species 02/10/23 Blood Culture - Final, Complete No growth Assessment/Plan/Dx Assessment: 1. Surgical incision 2. PEM 3. Tobaccoism 4. Truncal obesity 5. Post-operative anemia Plan: 1. Continue wound vac care. Plan for home mary wound vac and follow up in our clinic (if allowable) 2. Protein supplementation ordered 3. Patient has not smoked singce 01-30-23 and does not plan to resume. 4. Defer to primary 5. Defer to primary ANAHY BERRIOS MD Feb 21, 2023 13:05
--- NOTE | 2023-02-21 13:58 | Occupational Therapy Eval ---
OT Evaluation-General/PLF Medical Diagnosis Admission Date Feb 10, 2023 at 23:18 Medical Diagnosis: diverticulitis Onset Date: Feb 10, 2023 Therapy Diagnosis Therapy Diagnosis: weakness Precautions Precautions/Isolations: Fall Prevention, Standard Precautions Weight Bear Status Weight Bearing Restriction: Full Weight Bearing Location Restriction: LE Bilateral, UE Bilateral Referral Physician: Frank Benedict Reason: Self Care, Evaluation/Treatment Medical History Pertinent Medical History: Diverticulitis, Smoking Current History s/p iliostomy, midline wound vac Social History Home: Single Level Current Living Status: Other Family (2 sons in twenties) Entry Into Home: Stairs With Railing ADL-Prior Level of Function SCALE: Activities may be completed with or without assistive devices. 6-Qqiuncuhev-mqytdet completes the activity by him/herself with no assistance from a helper. 5-Set-up or Clean-up Assistance-helper sets up or cleans up; patient completes activity. [place] assists only prior to or following the activity. 4-Supervision or Touching Assistance-helper provides verbal cues and/or touching/steadying and/or contact guard assistance as patient completes activity. Assistance may be provided throughout the activity or intermittently. 3-Partial/Moderate Assistance-helper does LESS THAN HALF the effort. [place] lifts, holds or supports trunk or limbs, but provides less than half the effort. 2-Substantial/Maximal Assistance-helper does MORE THAN HALF the effort. [place] lifts or holds trunk or limbs and provides more than half the effort. 8-Kqlsqolpy-shtpxi does ALL the effort. Patient does none of the effort to complete the activity. Or, the assistance of 2 or more helpers is required for the patient to complete the activity. If activity was not attempted, code reason: 7-Patient Refused. 9-Not Applicable-not attempted and the patient did not perform the activity before the current illness, exacerbation or injury. 10-Not Attempted due to Environmental Limitations-(lack of equipment, weather restraints, etc.). 88-Not Attempted due to Medical Conditions or Safety Concerns. Self Care: Independent Functional Cognition: Independent Drive Self: Yes OT Current Status Subjective Agreeable to OT evaluation Mental Status/Objective Patient Orientation: Person, Place, Time, Situation Attachments: Colostomy/Ileostomy, Drains (wound vac), IV Current Upper Extremity ROM BUE ROM WFLS, TRUNK FLEXION DECREASED D/T EDEMA, WOUND VAC AND PAIN Upper Extremity Coordination INTACT [facility], PINCH OUTREACH AND EDUCATION SOCIAL WORKER WNLS Upper Extremity Sensation INTACT Upper Extremity Strength 4/5 GROSSLY, COMPOSITE OUTREACH AND EDUCATION SOCIAL WORKER 5/5 ADL-Treatment Eating (QC): 5 (SOFT MOIST DIET) Oral Hygiene (QC): 5 Shower/Bathe Self (QC): 3 (OT PERFORMED SPONGE BATHING W/ PATIENT AND USE OF SHOWER CAP. ot POERFORMED HAIR, BACKAND LES BELOW KNEES) Upper Body Dressing (QC): 4 Lower Body Dressing (QC): 4 On/Off Footwear (QC): 4 (RLE INCREASED EDEMA AND REDUCED FLEXIBILITY OVER LLE. ) Toileting Hygiene (QC): 4 EDUCATED PATIENT ON SEQUENCING OF LES TO DECREASE TAXING EFFORT Education OT Patient Education: Energy conservation, Modified ADL techniques, Progress toward Goal/Update tx plan, Purpose of tx/functional activities, Reviewed precautions, Rehab process, Safety issues, Transfer techniques, Use of adapted equipment Teaching Recipient: Patient Teaching Methods: Demonstration, Discussion Response to Teaching: Verbalize Understanding, Return Demonstration OT Custodial Goals Transportation Analyst Goals Oral Hygiene (QC): 6 Toileting Hygiene (QC): 6 Shower/Bathe Self (QC): 4 Upper Body Dressing (QC): 6 Lower Body Dressing (QC): 6 On/Off Footwear (QC): 6 1=Demonstrate adherence to instructed precautions during ADL tasks. 2=Patient will verbalize/demonstrate understanding of assistive devices/modifications for ADL. 3=Patient will improve strength/tolerance for activity to enable patient to perform ADL's. OT Education/Plan Problem List/Assessment Assessment: Decreased Activ Tolerance, Impaired Self-Care Skills Discharge Recommendations Plan/Recommendations: Continue POC Therapy Discharge Recommendati: Post Acute OT Equpiment Recommendations-D/C: Hip Kit Treatment Plan/Plan of Care Treatment,Training & Education: Yes Patient would benefit from OT for education, treatment and training to promote independence in ADL's, mobility, safety and/or upper extremity function for A DL's. Plan of Care: ADL Retraining, Functional Mobility, Group Exercise/Act as Ind, UE Funct Exercise/Act Treatment Duration: Feb 26, 2023 Frequency: 3 times per week (3-5 TIMES PER WEEK) Estimated Hrs Per Day: .25 hour per day Agreement: Yes Rehab Potential: Guarded OT ASSIST PATIENT TO BATHROOM AN INSTRUCTED OT USE CALL LIGHT, OT INFORMED NURSE. Time Start Time: 13:00 Stop Time: 13:25 DATE: Feb 21, 2023 Total Time Billed (hr/min): 25 Billed Treatment Time EVM, ADL 25 MIN CHRISTOPHER COVARRUBIAS OT Feb 21, 2023 13:58
[2023-02-22] MEDS: metroNIDAZOLE 500MG/100ML IVPB 100 ML IV SCH (02:50)
[2023-02-22] MEDS: HYDROcodone/APAP 5 MG/325 MG (LORTAB) TAB PO PRN ×4 (02:50→18:50)
[2023-02-22 04:02] VITALS: BP 129/81
[2023-02-22] MEDS: RT-ALBUTEROL/IPRATROPIUM 3 ML (DUONEB) VIAL INH SCH ×5 (05:59→22:53)
[2023-02-22 07:02] LABS: BASOPHILS # (AUTO) 0.1 10^3/uL (0.0-0.1); BASOPHILS % (AUTO) 0 % (0-10); EOSINOPHILS # (AUTO) 0.1 10^3/uL (0.0-0.3); EOSINOPHILS % (AUTO) 0 % (0-10); HEMATOCRIT 26 % (35-52); HEMOGLOBIN 9.1 g/dL (11.5-16.0); LYMPHOCYTES # (AUTO) 1.8 10^3/uL (1.0-4.0); LYMPHOCYTES % (AUTO) 10 % (12-44); MEAN CORPUSCULAR HEMOGLOBIN 29 pg (25-34); MEAN CORPUSCULAR HGB CONC 35 g/dL (32-36); MEAN CORPUSCULAR VOLUME 85 fL (80-99); MEAN PLATELET VOLUME 11.4 fL (9.0-12.2); MONOCYTES # (AUTO) 0.6 10^3/uL (0.0-1.0); MONOCYTES % (AUTO) 3 % (0-12); NEUTROPHILS # (AUTO) 15.5 10^3/uL (1.8-7.8); NEUTROPHILS % (AUTO) 83 % (42-75); PLATELET COUNT 428 10^3/uL (130-400); WHITE BLOOD COUNT 18.6 10^3/uL (4.3-11.0)
[2023-02-22 07:19] VITALS: BP 135/83
[2023-02-22 07:29] LABS: BILIRUBIN,TOTAL 0.4 MG/DL (0.1-1.0); CALCIUM 7.6 MG/DL (8.5-10.1); CREATININE SERUM 0.83 MG/DL (0.60-1.30); MAGNESIUM 1.9 MG/DL (1.6-2.4); POTASSIUM 2.9 MMOL/L (3.6-5.0); TOTAL PROTEIN 5.8 GM/DL (6.4-8.2)
[2023-02-22] MEDS: PANTOPRAZOLE 40 MG (PROTONIX) VIAL IV SCH (07:56)
[2023-02-22] MEDS: KCL 8 MEQ (MICRO K) TABLET PO SCH ×2 (07:56→17:20)
--- NOTE | 2023-02-22 08:49 | Progress Note - Surgery ---
ISAURO MENDEZ 02/22/23 0848: Subjective Date Seen by a Provider: Feb 22, 2023 Time Seen by a Provider: 07:00 Subjective/Events-last exam Pt was seen sitting up in her chair next to bed, she appeard to be in moderate distress and complained of a pain on her right side that was worse with breathi ng, she blames a lot of the onset on a coughing fit she had last night, and says she is coughing up sputum again, there were tissues at bedside with thick white mucus and one she showed had some blood in it. Pain is along her right costal border from mid axilla to mid clavicular line, and she rated it 6/10 at rest. She also mentioned having two more stools come from her rectum yesterday and says that there was no blood in it. Her swelling she did mention is improving and she was able to walk around several time syesterday which she says helps. She denies n/v, CP, lightheadedness but endorses having sweats SOB, and right upper quadrant abdominal pain. Review of Systems General: No Chills, No Night Sweats, No Fatigue, No Malaise; Appetite (no appetite still) HEENT: No Head Aches, No Visual Changes Pulmonary: Dyspnea, Cough, Pleuritic Chest Pain Cardiovascular: Edema; No: Chest Pain, Palpitations, Lt Headedness Gastrointestinal: No: Vomiting, Diarrhea, Melena, Hematochezia Genitourinary: No Dysuria, No Hematuria Musculoskeletal: No: other, neck pain, shoulder pain, arm pain, back pain, hand pain, leg pain, foot pain Neurological: No: Numbness, Change in speech, Confusion Objective Exam Vital Signs Date Time Temp Pulse Resp B/P (MAP) Pulse Ox O2 Delivery O2 Flow Rate FiO2 02/22/23 07:19 37.0 94 18 135/83 (100) 92 Room Air 02/22/23 04:02 36.7 96 18 129/81 (97) 94 Room Air 02/21/23 23:45 37.6 97 18 120/69 (86) 94 Room Air 02/21/23 21:00 Room Air 02/21/23 19:50 36.5 104 20 113/56 (75) 94 Room Air 02/21/23 19:03 94 Room Air 4/17/23 16:13 36.2 92 20 126/64 (84) 93 Room Air 02/21/23 14:19 97 Room Air 02/21/23 11:56 35.9 93 20 114/68 93 Room Air 02/21/23 11:21 36.4 93 18 125/73 (90) 93 Room Air 02/21/23 10:11 96 Room Air 02/21/23 09:55 36.8 86 20 127/78 96 Room Air 02/21/23 09:27 36.2 109 20 126/77 97 Room Air I & O 02/22/23 07:00 Intake Total 3285.75 ml Output Total 3975 ml Balance -689.25 ml Capillary Refill : Less Than 3 Seconds General Appearance: Anxious, Chronically ill, Moderate Distress HEENT: PERRL/EOMI, Moist Mucous Membranes, Pale Conjunctivae (L), Pale Conjunctivae (R) Neck: Non Tender, Supple Respiratory: No Accessory Muscle Use, No Respiratory Distress, Decreased Breath Sounds (b/l bases) Cardiovascular: Regular Rate, Rhythm, No Murmur Peripheral Pulses: 2+ Dorsalis Pedis (R), 2+ Left Dors-Pedis (L), 2+ Radial Pulses (R), 2+ Radial Pulses (L) Gastrointestinal: soft; No distended; guarding, tenderness (RUQ), other (Output visible in ostomy bag, stoma appears pinkish red, Wound VAC in place) Extremity: No Calf Tenderness, Pedal Edema (edema 2+ b/l and up thighs) Neurologic/Psychiatric: Alert, Oriented x3, Depressed Affect Skin: Damp, Diaphoresis, Pallor Lymphatic: No Adenopathy (cervical) Results Lab Laboratory Tests 02/22/23 06:56: White Blood Count 18.6H, Red Blood Count 3.12L, Hemoglobin 9.1#L, Hematocrit 26L , Mean Corpuscular Volume 85, Mean Corpuscular Hemoglobin 29, Mean Corpuscular Hemoglobin Concent 35, Red Cell Distribution Width 14.4, Platelet Count 428H, Mean Platelet Volume 11.4, Immature Granulocyte % (Auto) 3, Neutrophils (%) (Auto) 83H, Lymphocytes (%) (Auto) 10L, Monocytes (%) (Auto) 3, Eosinophils (%) (Auto) 0, Basophils (%) (Auto) 0, Neutrophils # (Auto) 15.5H, Lymphocytes # (Auto) 1.8, Monocytes # (Auto) 0.6, Eosinophils # (Auto) 0.1, Basophils # (Auto) 0.1, Immature Granulocyte # (Auto) 0.6H, Sodium Level 137, Potassium Level 2.9L, Chloride Level 103, Carbon Dioxide Level 24, Anion Gap 10, Blood Urea Nitrogen 6L, Creatinine 0.83, Estimat Glomerular Filtration Rate 88, BUN/Creatinine Ratio 7, Glucose Level 103, Calcium Level 7.6L, Corrected Calcium 9.2, Magnesium Level 1.9, Total Bilirubin 0.4, Aspartate Amino Transf (AST/SGOT) 26, Alanine Aminotransferase (ALT/SGPT) 10, Alkaline Phosphatase 48, Total Protein 5.8L, Albumin 2.0L Microbiology 02/15/23 MRSA Screen - Final, Complete MRSA not isolated 02/11/23 Gram Stain - Final, Complete 02/11/23 Anaerobic Culture - Final, Complete Bacteroides ovatus 02/11/23 Surgical Culture - Final, Complete Escherichia coli Mixed Bacterial Roberta See Comments 02/10/23 Urine Culture - Final, Complete Lactobacillus species 02/10/23 Blood Culture - Final, Complete No growth Assessment/Plan Assessment/Plan Assessment/Plan Hypokalemia * getting supplements, at 2.9 today, slightly improving with new protocol * Was given iron transfusion, current Hgb today is 9.1 after recieving transfusion 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 She is still very anxious and upset because she is not getting along with nurse. Pain in RUQ is better. Tolerating diet, but still unable to eat much. Review of Systems HEENT: Visual Changes Pulmonary: Dyspnea, Cough, Pleuritic Chest Pain Cardiovascular: Edema; No: Chest Pain, Palpitations Gastrointestinal: Abdominal Pain, Hematochezia; No: Vomiting Objective Exam General Appearance: Anxious, Chronically ill, Moderate Distress HEENT: PERRL/EOMI, Moist Mucous Membranes, Pale Conjunctivae (L), Pale Conjunctivae (R) Respiratory: No Accessory Muscle Use, No Respiratory Distress, Decreased Breath Sounds (b/l bases, R>L) Cardiovascular: Regular Rate, Rhythm, No Murmur Gastrointestinal: soft; No distended; guarding, tenderness (RUQ), other (Output visible in ostomy bag, stoma appears pinkish, Wound VAC in place) Extremity: No Calf Tenderness, Pedal Edema (edema 2+ b/l and up thighs) Neurologic/Psychiatric: Depressed Affect Skin: Pallor Results Radiology Date of Exam:02/22/23 CHEST 1 VIEW, AP/PA ONLY INDICATION: Leukocytosis. TECHNIQUE: Single view chest 9:23 AM. CORRELATION STUDY: 02/10/2023 FINDINGS: Heart size enlarged with vascular slightly prominent. New opacity right lung base likely combination effusion along with a infiltrate, atelectasis and/or edema. Probable small left pleural effusion perhaps minimal atelectasis or infiltrate left lung base. IMPRESSION: 1. New bibasilar opacities right greater than left. There is a combination of effusion with atelectasis, infiltrate and/or edema. 2. Cardiac enlargement appearing more prominent from prior. No overt failure. Dictated by: Dictated on workstation # [id number] Dict: 02/22/23 1221 Trans: 02/22/23 1252 [id number] Interpreted by: TEJA ZAMARRIPA DO Electronically signed by: TEJA ZAMARRIPA DO 02/22/23 1252 Assessment/Plan Assessment/Plan Assessment/Plan Pneumonia vs Atelectasis and Pleural effusion - I spoke with Dr. Marie (recommending changing ABX to treat Pneumonia) she already had same thoughts I also ordered another Lasix 10mg IV, Continue working with RT Anxiety I spoke with pt and recommended she take the Ativan, yesterday it calmed her enough to do breathing treatments. 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 Luekocytosis (18.6) * Continue pain management, currently well controlled * tolerating soft diet with protein * continue on IV ceftriaxone and IV Metronidazole * Encouraged patient to continue to use their IS and continue ambulating * May need abdominal CT if WBC worsens, believe it is all pulmonary though Supervisory-Addendum Brief Verification & Attestation Participated in pt care: history, MDM, physical Personally performed: exam, history, MDM, supervision of care Care discussed with: Medical Student Procedures: n/a Verification and Attestation of Medical Student E/M Service A medical student performed and documented this service. I then reviewed and verified all information documented by the medical student and made modifications to such information, when appropriate. I personally performed a physical exam, medical decision making and then discussed any differences between the notes and made revisions as necessary to create one note. Justin Man , 02/22/23 , 14:03 ISAURO MENDEZ Feb 22, 2023 08:48 JUSTIN MAN DO Feb 22, 2023 14:05
[2023-02-22] MEDS ORDERED: ENOXAPARIN 40 MG/0.4 ML (LOVENOX) SYR SC SCH (09:30)
[2023-02-22] MEDS ORDERED: NS IV 1000 ML 1,000 ML IV ONE (09:30)
[2023-02-22 09:43] LABS: ANISOCYTOSIS SLIGHT; BAND NEUTROPHILS 1 %; LYMPHOCYTES % (MANUAL) 7 %; MONOCYTES % (MANUAL) 3 %; NEUTROPHILS % (MANUAL) 89 %; NUCLEATED RED BLOOD CELLS 1; PLATELET CLUMPS RARE; POLYCHROMASIA SLIGHT
[2023-02-22] MEDS: cefTRIAXone IV/IM 1,000 MG in NS (IVPB) 50 ML IV SCH (09:52)
[2023-02-22] MEDS: MAGNESIUM 1 GM/100 ML IVPB 100 ML IV SCH ×3 (09:53→10:55)
[2023-02-22] MEDS: POTASSIUM CL 10MEQ/50ML IVPB 50 ML IV SCH ×9 (09:53→16:44)
[2023-02-22] MEDS: KCL 20 MEQ TAB (K-DUR) PO SCH (10:21)
--- NOTE | 2023-02-22 10:26 | Progress Note - Hospitalist ---
PAZ SANTANA 02/22/23 1026: Subjective HPI/CC On Admission Date Seen by Provider: Feb 22, 2023 Time Seen by Provider: 08:00 Patient is a 48 year old female with history of diverticulosis and tendonitis who presented to the ED last night for LLQ abd pain radiating into her back. She reports being diagnosed with the flu on january 30 that caused her to be mostly bed ridden. She began to experience LLQ abd pain a week ago that has gradually worsened, She describes it as sharp in nature. She reports having a small BM yesterday with no blood. In the ED she was found to be tachycardic w/ mild leukocytosis, anion gap metabolic acidosis, hyponatrema, and hypokalemia. Toxicology was positive for canabinoids which patient endorses trying 2 weeks ago in [place]. CT imaging in the ED revealed sigmoid diverticulitis w/ 3.2x4.6cm abscess adjacent to inflamed bowel. Subjective/Events-last exam Patient was awake sitting in her chair when seen this morning. Her Hgb improved to 9.1 this morning from 6.9 yesterday after receiving 1 unit pRBC. She reports increased energy after receiving the transfusion and was able to walk the halls yesterday afternoon. Over night she did develop some increased SOB and cough requiring her to request a breathing treatment which helped with her symptoms. This morning she is complaining of new RUQ pain following the coughing last night. Her WBC this morning have increased to 18.6 from 15.7. She denies LH, CP, palpitations, N/V/D, new weakness in arms or legs. She continues to have diffuse abd pain and swelling in her legs. She continues to be fairly anxious. Review of Systems General: No Chills; Fatigue HEENT: No Head Aches, No Visual Changes Pulmonary: Dyspnea, Cough Cardiovascular: No: Chest Pain, Palpitations Gastrointestinal: Abdominal Pain; No: Nausea, Vomiting, Diarrhea, Constipation Genitourinary: No Dysuria, No Hematuria Neurological: No: Weakness, Numbness Objective Exam Vital Signs Vital Signs Date Time Temp Pulse Resp B/P (MAP) Pulse Ox O2 Delivery O2 Flow Rate FiO2 02/22/23 07:19 37.0 94 18 135/83 (100) 92 Room Air 02/20/23 20:38 0.00 02/20/23 12:11 21 Capillary Refill : Less Than 3 Seconds General Appearance: No Apparent Distress, WD/WN, Anxious HEENT: Pharynx Normal, Moist Mucous Membranes Respiratory: Chest Non Tender, Lungs Clear, Normal Breath Sounds, No Accessory Muscle Use, No Respiratory Distress Cardiovascular: Regular Rate, Rhythm, No Murmur, Normal Peripheral Pulses Gastrointestinal: Normal Bowel Sounds, Other (Large abd wound with wound vac properly in place with serosanguinous drainage present.) Back: Normal Inspection Extremity: Normal Capillary Refill, Non Tender, No Calf Tenderness, Swelling (1+ pitting edema legs bilaterally) Neurologic/Psychiatric: Alert, Oriented x3 Skin: Normal Color, Warm/Dry Lymphatic: No Adenopathy Results/Procedures Lab Laboratory Tests 02/22/23 06:56 Patient resulted labs reviewed. Assessment/Plan Assessment and Plan Assess & Plan/Chief Complaint Day 5 S/P Colectomy w/ end ileostomy, appendectomy, and omentectomy -Continue abx. Control pain. Encourage mobility as tolerated. -Soft diets and advance as able. -Would vac in place. Wound care helping manage. Surgery following. -Monitor labs Anemia -(02/21) Hgb 6.9 today. 1 unit pRBC given -(02/22) Hgb 9.1 S/P 1 unit pRBC. Large increase indicates there may have been a dilutional compnent involved. Will monitor. Sepsis 2nd to diverticulitis w/ abscess -Pt met SIRS criteria with tachycardia, leukocytosis, and suspsected source of infection -02/10 CT revealed sigmoid diverticulitis with 3.2x4.6cm abscess adjacent to inflamed bowel. -Ceftriaxone 1g Q24 hr & Metronidazole 0.5G Q12 hr. Leukocytosis -WBC 18.6 today, increased from 15.7 yesterday. -Pt. had increased SOB and cough overnight and new Right UQ/lower chest pain following in the setting of increased WBC. Will order CXR to rule out pneumonia vs. pleural effusion vs. pneumo. Hypokalemia -2.9 today. Will replace and monitor. Metabolic acidosis w/ high anion gap -resolved Hyponatremia -Improved after IVF. Monitor Diet: soft diet DVT Proph: KAREN Faulkner DO 02/23/23 0456: Supervisory-Addendum Brief Verification & Attestation Participated in pt care: history, MDM, physical Personally performed: exam, history, MDM, supervision of care Care discussed with: Medical Student Procedures: n/a Results interpretation: Verified all documentation Verification and Attestation of Medical Student E/M Service A medical student performed and documented this service in my presence. I reviewed and verified all information documented by the medical student and made modifications to such information, when appropriate. I personally performed the physical exam and medical decision making. Karen Marie, Feb 23, 2023,04:56 PAZ SANTANA Feb 22, 2023 10:26 KAREN MARIE DO Feb 23, 2023 04:56
[2023-02-22] MEDS: fluCOnazole (DIFLUCAN) 100 MG TAB PO SCH (10:33)
[2023-02-22] MEDS: NYSTATIN ORAL SUSP 5 ML UDC PO SCH ×4 (10:34→20:55)
[2023-02-22] MEDS ORDERED: VANCOMYCIN INJECTION 1,000 MG in NS (IVPB) 250 ML IV SCH (10:45)
[2023-02-22 11:45] VITALS: BP 131/80
--- NOTE | 2023-02-22 11:49 | Occupational Ther Daily Note ---
OT Current Status-Daily Note Subjective Up in recliner, reports hard night and SOA Pain Numeric Pain Scale: 5-Moderate Pain Location Body Site: Abdomen Mental Status/Objective Patient Orientation: Situation Attachments: Colostomy/Ileostomy, IV ADL-Treatment Therapy Code Descriptions/Definitions Functional [place] Measure: 0=Not Assessed/NA 4=Minimal Assistance 1=Total Assistance 5=Supervision or Setup 2=Maximal Assistance 6=Modified [place] 3=Moderate Assistance 7=Complete IndependenceSCALE: Activities may be completed with or without assistive devices. 8-Yfaklrigky-tkcpbka completes the activity by him/herself with no assistance from a helper. 5-Set-up or Clean-up Assistance-helper sets up or cleans up; patient completes activity. [place] assists only prior to or following the activity. 4-Supervision or Touching Assistance-helper provides verbal cues and/or touching/steadying and/or contact guard assistance as patient completes activity. Assistance may be provided throughout the activity or intermittently. 3-Partial/Moderate Assistance-helper does LESS THAN HALF the effort. [place] lifts, holds or supports trunk or limbs, but provides less than half the effort. 2-Substantial/Maximal Assistance-helper does MORE THAN HALF the effort. [place] lifts or holds trunk or limbs and provides more than half the effort. 5-Ksmcuabmq-lujvow does ALL the effort. Patient does none of the effort to complete the activity. Or, the assistance of 2 or more helpers is required for the patient to complete the activity. If activity was not attempted, code reason: 7-Patient Refused. 9-Not Applicable-not attempted and the patient did not perform the activity before the current illness, exacerbation or injury. 10-Not Attempted due to Environmental Limitations-(lack of equipment, weather restraints, etc.). 88-Not Attempted due to Medical Conditions or Safety Concerns. Eating (QC): 6 Oral Hygiene (QC): 6 Shower/Bathe Self (QC): 88 Upper Body Dressing (QC): 5 Lower Body Dressing (QC): 4 On/Off Footwear: 4 Toileting Hygiene (QC): 5 Toilet Transfer (QC): 5 Education OT Patient Education: Correct positioning, Modified ADL techniques, Progress toward Goal/Update tx plan, Purpose of tx/functional activities, Reviewed precautions, Rehab process, Safety issues, Transfer techniques, Use of adapted equipment, W/C management Teaching Recipient: Patient Teaching Methods: Demonstration Response to Teaching: Reinforcement Needed OT Care Home Goals Care Home Goals Oral Hygiene (QC): 6 Toileting Hygiene (QC): 6 Shower/Bathe Self (QC): 4 Upper Body Dressing (QC): 6 Lower Body Dressing (QC): 6 On/Off Footwear (QC): 6 1=Demonstrate adherence to instructed precautions during ADL tasks. 2=Patient will verbalize/demonstrate understanding of assistive devices/modifications for ADL. 3=Patient will improve strength/tolerance for activity to enable patient to perform ADL's. OT Education/Plan Problem List/Assessment Assessment: Decreased Activ Tolerance, Decreased UE Strength, Impaired Self- Care Skills Discharge Recommendations Plan/Recommendations: Continue POC Treatment Plan/Plan of Care Treatment,Training & Education: Yes Patient would benefit from OT for education, treatment and training to promote independence in ADL's, mobility, safety and/or upper extremity function for ADL's. Plan of Care: ADL Retraining, Functional Mobility, Group Exercise/Act as Ind, UE Funct Exercise/Act Treatment Duration: Feb 26, 2023 Frequency: 3 times per week (3-5 TIMES PER WEEK) Estimated Hrs Per Day: .25 hour per day Agreement: Yes Rehab Potential: Guarded Returned to recliner w/ warm blanket following toileting tasks Time Start Time: 09:00 Stop Time: 09:15 DATE: Feb 22, 2023 Total Time Billed (hr/min): 15 Billed Treatment Time ADL 15 min CHRISTOPHER COVARRUBIAS OT Feb 22, 2023 11:49
[2023-02-22] MEDS ORDERED: VANCOMYCIN 1500MG/300ML PREMIX IV NR (12:00)
[2023-02-22] MEDS: LORazepam INJ 2 MG/ML (ATIVAN) VIAL IVP NR ×2 (12:05→13:07)
--- NOTE | 2023-02-22 12:25 | Diagnostic Imaging Report ---
INDICATION: Leukocytosis. TECHNIQUE: Single view chest 9:23 AM. CORRELATION STUDY: 02/10/2023 FINDINGS: Heart size enlarged with vascular slightly prominent. New opacity right lung base likely combination effusion along with a infiltrate, atelectasis and/or edema. Probable small left pleural effusion perhaps minimal atelectasis or infiltrate left lung base. IMPRESSION: 1. New bibasilar opacities right greater than left. There is a combination of effusion with atelectasis, infiltrate and/or edema. 2. Cardiac enlargement appearing more prominent from prior. No overt failure. Dictated by: Dictated on workstation # [id number]
[2023-02-22] MEDS: ENOXAPARIN 40 MG/0.4 ML (LOVENOX) SYR SC SCH (13:07)
[2023-02-22] MEDS: CEFEPIME INJECTION 1,000 MG in NS (IVPB) 50 ML IV SCH ×2 (13:10→17:20)
[2023-02-22] MEDS: NS IV 500 ML 500 ML IV SCH (15:07)
[2023-02-22 15:19] VITALS: BP 125/74
[2023-02-22] MEDS: ACETAMINOPHEN 500 MG TAB (TYLENOL) PO PRN (15:45)
[2023-02-22 19:19] VITALS: BP 115/74
[2023-02-22] MEDS ORDERED: MEROPENEM 1,000 MG in NS (IVPB) 100 ML IV SCH (19:45)
[2023-02-22] MEDS ORDERED: MEROPENEM 500 MG VIAL (MERREM) IV ONE (20:55)
[2023-02-22] MEDS: MEROPENEM 500 MG/NS 100 ML IVPB IV SCH ×2 (20:55)
[2023-02-23] VITALS: BP 140/85
[2023-02-23] MEDS: VANCOMYCIN 1250 MG/NS 250 ML PREMIX IV SCH ×2 (00:09→12:09)
[2023-02-23] MEDS: HYDROcodone/APAP 5 MG/325 MG (LORTAB) TAB PO PRN ×5 (00:10→20:00)
[2023-02-23] MEDS: RT-ALBUTEROL/IPRATROPIUM 3 ML (DUONEB) VIAL INH SCH ×6 (02:56→22:05)
[2023-02-23 03:09] VITALS: BP 135/84
[2023-02-23] MEDS: MEROPENEM 500 MG/NS 100 ML IVPB IV SCH ×8 (04:06→20:00)
[2023-02-23 04:17] LABS: BASOPHILS % (AUTO) 0 % (0-10); EOSINOPHILS # (AUTO) 0.2 10^3/uL (0.0-0.3); EOSINOPHILS % (AUTO) 1 % (0-10); HEMATOCRIT 23 % (35-52); HEMOGLOBIN 7.8 g/dL (11.5-16.0); LYMPHOCYTES # (AUTO) 1.5 10^3/uL (1.0-4.0); LYMPHOCYTES % (AUTO) 8 % (12-44); MEAN CORPUSCULAR HEMOGLOBIN 29 pg (25-34); MEAN CORPUSCULAR HGB CONC 34 g/dL (32-36); MEAN CORPUSCULAR VOLUME 86 fL (80-99); MEAN PLATELET VOLUME 11.2 fL (9.0-12.2); MONOCYTES # (AUTO) 0.7 10^3/uL (0.0-1.0); MONOCYTES % (AUTO) 4 % (0-12); NEUTROPHILS # (AUTO) 15.3 10^3/uL (1.8-7.8); NEUTROPHILS % (AUTO) 85 % (42-75); PLATELET COUNT 427 10^3/uL (130-400); WHITE BLOOD COUNT 18.1 10^3/uL (4.3-11.0)
[2023-02-23 04:25] LABS: ALBUMIN 1.8 GM/DL (3.2-4.5); POTASSIUM 3.4 MMOL/L (3.6-5.0)
[2023-02-23 04:28] LABS: TOTAL PROTEIN 5.2 GM/DL (6.4-8.2)
[2023-02-23 04:30] LABS: BILIRUBIN,TOTAL 0.3 MG/DL (0.1-1.0)
[2023-02-23 04:31] LABS: CREATININE SERUM 0.87 MG/DL (0.60-1.30)
[2023-02-23] MEDS ORDERED: POTASSIUM CL 10MEQ/50ML IVPB 50 ML IV SCH (04:45)
[2023-02-23] MEDS: KCL 20 MEQ TAB (K-DUR) PO SCH (06:04)
[2023-02-23] MEDS: MAGNESIUM 1 GM/100 ML IVPB 100 ML IV SCH (06:04)
[2023-02-23] MEDS: POTASSIUM CL 10MEQ/50ML IVPB 50 ML IV SCH (06:04)
--- NOTE | 2023-02-23 07:33 | Progress Note - Surgery ---
ISAURO MENDEZ 02/23/23 0733: Subjective Date Seen by a Provider: Feb 23, 2023 Time Seen by a Provider: 07:00 Subjective/Events-last exam Pt was looking less anxious and more comfortable she was sleeping with her bed inclined, she says that she feels like her swelling in her arms and hands went down and that her lasix seems to help, she says her pain is becoming lessened and the meds are helping as well. She reported having eaten all of her dinner last night and having her appetite return, as well as passing stool/gas well, with no urinary issues. Her central line she says is helping her with mobility and she was able to move around better yesterday according to her, she says her RUQ pain is at around a 4-5/10 with her pain meds. She still reports a white mucos productive cough, but says its been less than yesterday. She is aware of her current pneumonia and was educated on how it could be causing her pain, and she is in good spirits saying she thinks even with the complication she is starting to feel and do better. She denies n/v/d, LH, CP, abd pain in (RLQ,LUQ,LLQ), numbness, paresthesia, fevers/chills. Review of Systems General: No Chills, No Night Sweats, No Malaise; Appetite (improving(reports being hungrier)) HEENT: No Head Aches, No Dysphasia Pulmonary: Dyspnea, Cough (white sputum production); No Pleuritic Chest Pain Cardiovascular: Orthopnea, Edema; No: Chest Pain, Palpitations, Lt Headedness Gastrointestinal: Abdominal Pain (RUQ); No: Nausea, Vomiting, Constipation, Melena, Hematochezia Genitourinary: No Dysuria, No Hematuria Musculoskeletal: other (says she has some hip discomfort from edema/prolonged immobilization), back pain Neurological: No: Weakness, Numbness, Change in speech, Confusion Objective Exam Vital Signs Date Time Temp Pulse Resp B/P (MAP) Pulse Ox O2 Delivery O2 Flow Rate FiO2 02/23/23 03:09 37.0 96 20 135/84 (101) 92 Room Air 02/23/23 02:56 94 Room Air 02/23/23 00:00 37.4 112 20 140/85 (103) 92 Room Air 02/22/23 22:53 96 Room Air 02/22/23 20:37 Room Air 02/22/23 19:19 36.8 100 19 115/74 (88) 97 Room Air 02/22/23 19:00 97 Room Air 02/22/23 18:17 37.0 02/22/23 15:45 37.8 02/22/23 15:19 37.6 100 18 125/74 (91) 92 Room Air 0.00 0.00 02/22/23 14:58 92 Room Air 02/22/23 11:45 36.8 92 18 131/80 (97) 93 Room Air 02/22/23 11:04 92 Room Air 02/22/23 08:00 Room Air I & O 02/23/23 07:00 Intake Total 3845 ml Output Total 2650 ml Balance 1195 ml Capillary Refill : Less Than 3 Seconds General Appearance: No Apparent Distress, Anxious, Chronically ill HEENT: PERRL/EOMI, Moist Mucous Membranes, Pale Conjunctivae (L), Pale Conjunctivae (R); No Photophobia, No Scleral Icterus (L), No Scleral Icterus (R) Neck: Non Tender, Supple Respiratory: No Accessory Muscle Use, No Respiratory Distress, Crackles (b/l bases), Decreased Breath Sounds (b/l bases, R>L) Cardiovascular: Regular Rate, Rhythm, No Murmur Peripheral Pulses: 2+ Dorsalis Pedis (R), 2+ Left Dors-Pedis (L), 2+ Radial Pulses (R), 2+ Radial Pulses (L) Gastrointestinal: soft; No distended; guarding, tenderness (RUQ), other (Output visible in ostomy bag, stoma appears pinkish, Wound VAC in place) Extremity: No Calf Tenderness, Pedal Edema (edema 2+ b/l and up thighs) Neurologic/Psychiatric: Alert, Oriented x3; No Aphasia, No Facial Droop Skin: Warm/Dry; No Erythema; Pallor; No Rash Lymphatic: No Adenopathy (cervical) Results Lab Laboratory Tests 02/22/23 13:02: Lab Scanned Report Transfusion Reaction Form 02/23/23 04:11: White Blood Count 18.1H, Red Blood Count 2.65L, Hemoglobin 7.8L, Hematocrit 23L, Mean Corpuscular Volume 86, Mean Corpuscular Hemoglobin 29, Mean Corpuscular Hemoglobin Concent 34, Red Cell Distribution Width 14.6H, Platelet Count 427H, Mean Platelet Volume 11.2, Immature Granulocyte % (Auto) 2, Neutrophils (%) (Auto) 85H, Lymphocytes (%) (Auto) 8L, Monocytes (%) (Auto) 4, Eosinophils (%) (Auto) 1, Basophils (%) (Auto) 0, Neutrophils # (Auto) 15.3H, Lymphocytes # (Auto) 1.5, Monocytes # (Auto) 0.7, Eosinophils # (Auto) 0.2, Basophils # (Auto) 0.0, Immature Granulocyte # (Auto) 0.4H, Sodium Level 136, Potassium Level 3.4L, Chloride Level 106, Carbon Dioxide Level 19L, Anion Gap 11, Blood Urea Nitrogen 8, Creatinine 0.87, Estimat Glomerular Filtration Rate 83, BUN/Creatinine Ratio 9, Glucose Level 124H, Calcium Level 7.0L, Corrected Calcium 8.8, Magnesium Level 2.0, Total Bilirubin 0.3, Aspartate Amino Transf (AST/SGOT) 23, Alanine Aminotransferase (ALT/SGPT) 13, Alkaline Phosphatase 47, Total Protein 5.2L, Albumin 1.8L Microbiology 02/15/23 MRSA Screen - Final, Complete MRSA not isolated 02/11/23 Gram Stain - Final, Complete 02/11/23 Anaerobic Culture - Final, Complete Bacteroides ovatus 02/11/23 Surgical Culture - Final, Complete Escherichia coli Mixed Bacterial Roberta See Comments 02/10/23 Urine Culture - Final, Complete Lactobacillus species 02/10/23 Blood Culture - Final, Complete No growth Assessment/Plan Assessment/Plan Assessment/Plan Pneumonia vs Atelectasis and Pleural effusion * Continue daily Lasix 10mg IV, Continue working with RT * continue on Abx changed to treat PNA * Anti-fungals being given prophylactically to avoid thrush Anxiety Managed well with current Ativan regimen Hypokalemia Anemia * getting supplements, at 3.4 today, improving well now with current protocol * current Hgb today is 7.8, (down from 9.1 yesterday after recieving transfusion) 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 She is using IS to try and help improve. Her abdomen is doing okay. Wound vac in place. Colostomy productive. Tolerating diet. Denies n/v fever sweats chills or chest pain at this time. + cough. Objective Exam General Appearance: No Apparent Distress, Anxious, Chronically ill HEENT: PERRL/EOMI, Moist Mucous Membranes Neck: Non Tender, Supple Respiratory: Chest Non Tender, Crackles (b/l bases) Cardiovascular: Regular Rate, Rhythm, No JVD Gastrointestinal: soft, tenderness (RUQ), other (stool visible in colostomy bag, stoma appears pinkish, Wound VAC in place) Extremity: No Calf Tenderness, Pedal Edema (edema 2+ b/l and up thighs) Neurologic/Psychiatric: Alert, Oriented x3; No Facial Droop Skin: Normal Color, Warm/Dry Lymphatic: No Adenopathy (cervical) Assessment/Plan Assessment/Plan Assessment/Plan 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 Luekocytosis (18.1, down from 18.6) Pneumonia Hypokalemia Anemia * Continue pain management, currently well controlled * tolerating soft diet with protein, appetite increasing * continued on PNA Abx regimen * Encouraged patient to continue to use their IS and continue ambulating * getting supplements, at 3.4 today, improving well now with current protocol * current Hgb today is 7.8, -trend * IS * Cough and deep breath Supervisory-Addendum Brief Verification & Attestation Participated in pt care: history, MDM, physical Personally performed: exam, history, MDM, supervision of care Care discussed with: Medical Student Procedures: n/a Results interpretation: Verified all documentation Verification and Attestation of Medical Student E/M Service A medical student performed and documented this service in my presence. I reviewed and verified all information documented by the medical student and made modifications to such information, when appropriate. I personally performed the physical exam and medical decision making. Lucila Maldonado Feb 23, 2023,16:59 ISAURO MENDEZ Feb 23, 2023 07:33 LUCILA MALDONADO DO Feb 23, 2023 16:59
[2023-02-23] MEDS: KCL 8 MEQ (MICRO K) TABLET PO SCH ×2 (08:22→17:03)
[2023-02-23] MEDS: NYSTATIN ORAL SUSP 5 ML UDC PO SCH ×4 (08:22→19:59)
[2023-02-23] MEDS: PANTOPRAZOLE 40 MG (PROTONIX) VIAL IV SCH (08:22)
[2023-02-23] MEDS: fluCOnazole (DIFLUCAN) 100 MG TAB PO SCH (08:22)
[2023-02-23 08:27] VITALS: BP 128/66
--- NOTE | 2023-02-23 08:44 | Occupational Ther Daily Note ---
OT Current Status-Daily Note Subjective Breathing continues to be a concern of patient, edema in legs persists, agrees to OT Mental Status/Objective Patient Orientation: Situation Attachments: IV, Other-See Comments (wound vac) ADL-Treatment Therapy Code Descriptions/Definitions Functional [place] Measure: 0=Not Assessed/NA 4=Minimal Assistance 1=Total Assistance 5=Supervision or Setup 2=Maximal Assistance 6=Modified [place] 3=Moderate Assistance 7=Complete IndependenceSCALE: Activities may be completed with or without assistive devices. 4-Bjybrvmjzj-hizgnuq completes the activity by him/herself with no assistance from a helper. 5-Set-up or Clean-up Assistance-helper sets up or cleans up; patient completes activity. [place] assists only prior to or following the activity. 4-Supervision or Touching Assistance-helper provides verbal cues and/or touching/steadying and/or contact guard assistance as patient completes activity. Assistance may be provided throughout the activity or intermittently. 3-Partial/Moderate Assistance-helper does LESS THAN HALF the effort. [place] lifts, holds or supports trunk or limbs, but provides less than half the effort. 2-Substantial/Maximal Assistance-helper does MORE THAN HALF the effort. [place] lifts or holds trunk or limbs and provides more than half the effort. 8-Cvqrlrlpg-tdamhr does ALL the effort. Patient does none of the effort to complete the activity. Or, the assistance of 2 or more helpers is required for the patient to complete the activity. If activity was not attempted, code reason: 7-Patient Refused. 9-Not Applicable-not attempted and the patient did not perform the activity before the current illness, exacerbation or injury. 10-Not Attempted due to Environmental Limitations-(lack of equipment, weather restraints, etc.). 88-Not Attempted due to Medical Conditions or Safety Concerns. Eating (QC): 6 Oral Hygiene (QC): 6 Bathing Location: L Arm, R Arm, L Upper Leg, R Upper Leg, L Lower Leg (including foot), R Lower Leg (including foot), Chest, Buttocks, Perineal Area Shower/Bathe Self (QC): 5 (sponge bathe) Upper Body Dressing (QC): 5 Lower Body Dressing (QC): 5 On/Off Footwear: 5 Toileting Hygiene (QC): 5 Toilet Transfer (QC): 5 Other Treatment Educational use of regulatory analyst for I/ADLS and safe functional activity w/ reduced pain. Education ST role, patient declined ST for breathing strategies Education OT Patient Education: Correct positioning, Energy conservation, Modified ADL techniques, Progress toward Goal/Update tx plan, Purpose of tx/functional activities, Reviewed precautions, Rehab process, Safety issues, Transfer techniques, Use of adapted equipment Teaching Recipient: Patient Teaching Methods: Demonstration Response to Teaching: Return Demonstration OT Group Leader Goals Intermediate Goals Oral Hygiene (QC): 6 Toileting Hygiene (QC): 6 Shower/Bathe Self (QC): 4 Upper Body Dressing (QC): 6 Lower Body Dressing (QC): 6 On/Off Footwear (QC): 6 1=Demonstrate adherence to instructed precautions during ADL tasks. 2=Patient will verbalize/demonstrate understanding of assistive devices/modifications for ADL. 3=Patient will improve strength/tolerance for activity to enable patient to perform ADL's. OT Education/Plan Discharge Recommendations Plan/Recommendations: Discontinue OT Treatment Plan/Plan of Care Patient would benefit from OT for education, treatment and training to promote independence in ADL's, mobility, safety and/or upper extremity function for ADL's. Plan of Care: ADL Retraining, Functional Mobility, Group Exercise/Act as Ind, UE Funct Exercise/Act Treatment Duration: Feb 26, 2023 Frequency: 3 times per week (3-5 TIMES PER WEEK) Estimated Hrs Per Day: .25 hour per day Agreement: Yes Rehab Potential: Guarded Time Start Time: 08:30 Stop Time: 08:43 DATE: Feb 23, 2023 Total Time Billed (hr/min): 13 Billed Treatment Time FA 13 min CHRISTOPHER COVARRUBIAS OT Feb 23, 2023 08:43
[2023-02-23] MEDS ORDERED: KCL 20 MEQ TAB (K-DUR) PO ONE (09:00)
[2023-02-23] MEDS: LORazepam 0.5 MG (ATIVAN) TABLET PO PRN ×2 (09:06→20:10)
--- NOTE | 2023-02-23 09:31 | Progress Note - Hospitalist ---
PAZ SANTANA 02/23/23 0931: Subjective HPI/CC On Admission Patient is a 48 year old female with history of diverticulosis and tendonitis who presented to the ED last night for LLQ abd pain radiating into her back. She reports being diagnosed with the flu on january 30 that caused her to be mostly bed ridden. She began to experience LLQ abd pain a week ago that has gradually worsened, She describes it as sharp in nature. She reports having a small BM yesterday with no blood. In the ED she was found to be tachycardic w/ mild leukocytosis, anion gap metabolic acidosis, hyponatrema, and hypokalemia. Toxicology was positive for canabinoids which patient endorses trying 2 weeks ago in [place]. CT imaging in the ED revealed sigmoid diverticulitis w/ 3.2x4.6cm abscess adjacent to inflamed bowel. Subjective/Events-last exam Patient was awake sitting in her chair when seen this morning. CXR yesterday revealed New bibasilar opacities, greater on the right, and combination of effusion w/atelectasis, infiltrate, and/or edema. Her IV abx were switched to Vanc 1.25g IV Q12 and Meropenem 500mg IV Q6 given these findings. She reports slightly worse SOB and cough today versus yesterday. Her vitals remain stable with O2 saturation in the low to mid 90's unchanged fro previous days. She has been up walking in the halls and is peeing well. Her appetitie is improving. Her colostomy bag is working properly. She denies LH, Palpitations, new numbness/weakness in arms or legs. She is having some right lower chest pain with breathing. Review of Systems General: No Chills; Fatigue HEENT: No Head Aches, No Visual Changes Pulmonary: Dyspnea, Cough Cardiovascular: Chest Pain (Right lower chest with breathing); No: Palpitations Gastrointestinal: Abdominal Pain; No: Nausea, Vomiting Genitourinary: No Dysuria, No Hematuria Neurological: No: Weakness, Numbness Objective Exam Vital Signs Vital Signs Date Time Temp Pulse Resp B/P (MAP) Pulse Ox O2 Delivery O2 Flow Rate FiO2 02/23/23 08:27 36.8 96 18 128/66 (86) 94 Room Air 02/22/23 15:19 0.00 0.00 02/20/23 12:11 21 Capillary Refill : Less Than 3 Seconds General Appearance: WD/WN, Anxious HEENT: Pharynx Normal, Moist Mucous Membranes Respiratory: Chest Non Tender, No Accessory Muscle Use, No Respiratory Distress, Other (significantly diminished breath sounds in RLL versus LLL. Mild rhonchi in RML. Normal breathsounds otherwise.) Cardiovascular: Regular Rate, Rhythm, No Murmur, Normal Peripheral Pulses Gastrointestinal: Normal Bowel Sounds, Tenderness, Other (Large abd wound with wound vac in place and serosanguinous fluid present) Extremity: Normal Capillary Refill, Non Tender, No Calf Tenderness, Swelling (1-2+ pitting edema in legs bilaterally) Neurologic/Psychiatric: Alert, Oriented x3, No Motor/Sensory Deficits Skin: Normal Color, Warm/Dry Lymphatic: No Adenopathy Results/Procedures Lab Laboratory Tests 02/23/23 04:11 Patient resulted labs reviewed. Imaging: Reviewed Imaging Films Radiology NAME: JATINDER LINO [facility] REC#: [id number] PT STATUS: ADM IN : 1975 PHYSICIAN: KAREN TRACY DO ADMIT DATE: 02/10/23 Signed Date of Exam:02/22/23 CHEST 1 VIEW, AP/PA ONLY INDICATION: Leukocytosis. TECHNIQUE: Single view chest 9:23 AM. CORRELATION STUDY: 02/10/2023 FINDINGS: Heart size enlarged with vascular slightly prominent. New opacity right lung base likely combination effusion along with a infiltrate, atelectasis and/or edema. Probable small left pleural effusion perhaps minimal atelectasis or infiltrate left lung base. IMPRESSION: 1. New bibasilar opacities right greater than left. There is a combination of effusion with atelectasis, infiltrate and/or edema. 2. Cardiac enlargement appearing more prominent from prior. No overt failure. Dictated by: Dictated on workstation # [id number] Dict: 02/22/23 1221 Trans: 02/22/23 1252 [id number] Interpreted by: TEJA ZAMARRIPA DO Electronically signed by: TEJA ZAMARRIPA DO 02/22/23 1252 Assessment/Plan Assessment and Plan Assess & Plan/Chief Complaint Day 5 S/P Colectomy w/ end ileostomy, appendectomy, and omentectomy -Continue abx w/ adjustments as below. Control pain. Encourage mobility as tolerated. -Soft diets and advance as able. -Wound vac in place. Wound care helping manage. Surgery following. -Monitor labs Anemia -(02/21) Hgb 6.9 today. 1 unit pRBC given -(02/22) Hgb 9.1 S/P 1 unit pRBC. Large increase indicates there may have been a dilutional compnent involved. Will monitor. -(02/23) Hgb 7.8 today. Will monitor to ensure it doesn;t drop further tomorrow and work up as needed if so. RLL Pleural Effusion and/or pneumonia -02/22 CXR -> New bibasilar opacities, right > Left, with combination of effusion w/ atelectasis , infiltrate, and/or edema. Cardiac enlargement appearing more prominent. -Abx switched from Ceftriaxone 1g Q24hr & Metronidazole 0.5g Q12hr --> Vancomycin 1.25g IV Q12hr & Meropenem 500mg Q6hr IV for pneumonia coverage. Continue Neb breathing treatments. -PAtient received Lasix 10mg IV once on 02/20 and once on 02/21. Will consider Lasix 20mg - 40mg IV QD given 1-2+ pitting edema in legs and CXR findings. -Monitor vitals and if SOB worsens or patient begins to need suppplemental oxygen then will consider ultrasound to assess need for thoracentesis to drain fluid. Sepsis 2nd to diverticulitis w/ abscess -Pt met SIRS criteria with tachycardia, leukocytosis, and suspsected source of infection -02/10 CT revealed sigmoid diverticulitis with 3.2x4.6cm abscess adjacent to inflamed bowel. Leukocytosis -(02/22):WBC 18.6 today, increased from 15.7 yesterday. Pt. had increased SOB and cough overnight and new Right UQ/lower chest pain following in the setting of increased WBC. Will order CXR to rule out pneumonia vs. pleural effusion vs. pneumo. -(02/23): CXR results as above. Abx initiated. WBC today 18.1. Monitor. Hypokalemia -3.4 today. Will continue to replace and monitor. Metabolic acidosis w/ high anion gap -resolved Hyponatremia -Improved after IVF. Monitor Diet: soft diet DVT Proph: lovenox KAREN TRACY DO 02/24/23 0443: Supervisory-Addendum Brief Verification & Attestation Participated in pt care: history, MDM, physical Personally performed: exam, history, MDM, supervision of care Care discussed with: Medical Student Procedures: n/a Results interpretation: Verified all documentation Verification and Attestation of Medical Student E/M Service A medical student performed and documented this service in my presence. I reviewed and verified all information documented by the medical student and made modifications to such information, when appropriate. I personally performed the physical exam and medical decision making. Karen Tracy, Feb 24, 2023,04:42 PAZ SANTANA Feb 23, 2023 09:31 KAREN TRACY DO Feb 24, 2023 04:43
[2023-02-23 11:35] VITALS: BP 125/63
[2023-02-23] MEDS ORDERED: FUROSEMIDE 40 MG/4 ML INJ (LASIX) IVP ONE (11:45)
[2023-02-23] MEDS: ENOXAPARIN 40 MG/0.4 ML (LOVENOX) SYR SC SCH (12:09)
[2023-02-23 16:11] VITALS: BP 121/66
[2023-02-23 19:29] VITALS: BP 123/63
[2023-02-23] MEDS ORDERED: TROUGH ORDER-PHARMACY XX NR (23:00)
[2023-02-24 00:05] VITALS: BP 126/70
[2023-02-24] MEDS: HYDROcodone/APAP 5 MG/325 MG (LORTAB) TAB PO PRN ×6 (00:06→20:29)
[2023-02-24] MEDS: VANCOMYCIN 1250 MG/NS 250 ML PREMIX IV SCH (00:09)
[2023-02-24] MEDS: MEROPENEM 500 MG/NS 100 ML IVPB IV SCH ×8 (03:08→19:54)
[2023-02-24 03:11] VITALS: BP 124/68
[2023-02-24 04:35] LABS: BASOPHILS # (AUTO) 0.1 10^3/uL (0.0-0.1); BASOPHILS % (AUTO) 0 % (0-10); EOSINOPHILS # (AUTO) 0.2 10^3/uL (0.0-0.3); EOSINOPHILS % (AUTO) 1 % (0-10); HEMATOCRIT 23 % (35-52); HEMOGLOBIN 7.7 g/dL (11.5-16.0); LYMPHOCYTES # (AUTO) 1.8 10^3/uL (1.0-4.0); LYMPHOCYTES % (AUTO) 12 % (12-44); MEAN CORPUSCULAR HEMOGLOBIN 30 pg (25-34); MEAN CORPUSCULAR HGB CONC 34 g/dL (32-36); MEAN CORPUSCULAR VOLUME 88 fL (80-99); MEAN PLATELET VOLUME 11.1 fL (9.0-12.2); MONOCYTES # (AUTO) 0.7 10^3/uL (0.0-1.0); MONOCYTES % (AUTO) 4 % (0-12); NEUTROPHILS # (AUTO) 12.9 10^3/uL (1.8-7.8); NEUTROPHILS % (AUTO) 81 % (42-75); PLATELET COUNT 478 10^3/uL (130-400); WHITE BLOOD COUNT 15.9 10^3/uL (4.3-11.0)
[2023-02-24 04:53] LABS: ALBUMIN 1.8 GM/DL (3.2-4.5); POTASSIUM 3.4 MMOL/L (3.6-5.0)
[2023-02-24 04:55] LABS: CALCIUM 7.1 MG/DL (8.5-10.1)
[2023-02-24 04:56] LABS: TOTAL PROTEIN 5.3 GM/DL (6.4-8.2)
[2023-02-24 04:58] LABS: BILIRUBIN,TOTAL 0.3 MG/DL (0.1-1.0)
[2023-02-24 04:59] LABS: CREATININE SERUM 0.82 MG/DL (0.60-1.30)
[2023-02-24 05:02] LABS: MAGNESIUM 1.8 MG/DL (1.6-2.4)
[2023-02-24] MEDS: MAGNESIUM 1 GM/100 ML IVPB 100 ML IV SCH ×3 (05:09→06:18)
[2023-02-24] MEDS: POTASSIUM CL 10MEQ/50ML IVPB 50 ML IV SCH (05:09)
[2023-02-24] MEDS: KCL 20 MEQ TAB (K-DUR) PO SCH (05:09)
--- NOTE | 2023-02-24 07:29 | Progress Note - Surgery ---
ISAURO MENDEZ 02/24/23 0729: Subjective Date Seen by a Provider: Feb 24, 2023 Time Seen by a Provider: 06:55 Subjective/Events-last exam Pt was lying in bed watching TV, she looks great today! Speaking to her she doesnt have labored breathing, her voice is stronger, and she is moving around much easier. The Lasix is helping to remove her excess fluids nicely and she reports having less cough and "really not coughing anything up anymore". She reports a lessening of pain along the right costal margin, and says she does have some abd pressure in both right quadrants, but mainly just after eating and feeling full. She attributes it also to having moved around more and just f eeling sore. Says she thinks the current treatment she is getting is doing the job and says she doesnt really have any new/worsening complaints. Denies n/v, LH, CP, fevers/chills, myalgia, malaise. She endorses cough, mild SOB, and abd tenderness she rates as a 4/10(less right after pain meds). Review of Systems General: No Chills, No Night Sweats, No Fatigue, No Malaise; Appetite (Improved/increasing) HEENT: No Head Aches, No Visual Changes, No Dysphasia, No Sore Throat Pulmonary: Dyspnea, Cough; No Pleuritic Chest Pain Cardiovascular: Edema; No: Chest Pain, Palpitations, Orthopnea (says she could sleep flat last night), Lt Headedness Gastrointestinal: Abdominal Pain; No: Nausea, Vomiting, Constipation, Hematochezia Genitourinary: No Dysuria, No Incontinence, No Retention Musculoskeletal: No: other, neck pain, shoulder pain, arm pain, back pain, hand pain, leg pain, foot pain Neurological: No: Numbness, Change in speech, Confusion Objective Exam Vital Signs Date Time Temp Pulse Resp B/P (MAP) Pulse Ox O2 Delivery O2 Flow Rate FiO2 02/24/23 03:11 36.9 105 18 124/68 (86) 93 Room Air 02/24/23 02:30 92 Room Air 02/24/23 00:05 37.5 105 18 126/70 (88) 92 Room Air 02/23/23 22:06 98 Room Air 02/23/23 21:00 Room Air 02/23/23 19:29 37.0 98 18 123/63 (83) 95 Room Air 02/23/23 19:11 93 Room Air 02/23/23 16:11 37.6 103 18 121/66 (84) 93 Room Air 02/23/23 14:37 94 Room Air 02/23/23 11:35 36.8 93 18 125/63 (83) 96 Room Air 02/23/23 10:06 94 Room Air 02/23/23 08:27 36.8 96 18 128/66 (86) 94 Room Air 02/23/23 08:00 Room Air 02/23/23 07:24 94 Room Air I & O 02/24/23 07:00 Intake Total 2460 ml Output Total 4150 ml Balance -1690 ml Capillary Refill : Less Than 3 Seconds General Appearance: No Apparent Distress, Chronically ill HEENT: PERRL/EOMI, Moist Mucous Membranes; No Pale Conjunctivae (L), No Pale Conjunctivae (R), No Photophobia, No Scleral Icterus (L), No Scleral Icterus (R) Neck: Full Range of Motion, Non Tender, Supple Respiratory: Chest Non Tender, No Accessory Muscle Use, No Respiratory Distress, Crackles (right base, much improved from yesterday) Cardiovascular: No Murmur, Tachycardia (105) Peripheral Pulses: 2+ Dorsalis Pedis (R), 2+ Left Dors-Pedis (L), 2+ Radial Pulses (R), 2+ Radial Pulses (L) Gastrointestinal: soft, no pulsatile mass, tenderness (all quadrants, described more as soreness from moving more), other (stool visible in colostomy bag, stoma appears pinkish, Wound VAC in place) Extremity: No Calf Tenderness, Pedal Edema (edema 1+ b/l and up thighs, is improved from yesterday) Neurologic/Psychiatric: Alert, Oriented x3; No Aphasia, No Depressed Affect, No Facial Droop Skin: Normal Color, Warm/Dry; No Jaundice, No Rash Lymphatic: No Adenopathy (cervical) Results Lab Laboratory Tests 02/23/23 23:15: Vancomycin Level Trough 18.0 02/24/23 04:28: White Blood Count 15.9H, Red Blood Count 2.57L, Hemoglobin 7.7L, Hematocrit 23L, Mean Corpuscular Volume 88, Mean Corpuscular Hemoglobin 30, Mean Corpuscular Hemoglobin Concent 34, Red Cell Distribution Width 15.3H, Platelet Count 478H, Mean Platelet Volume 11.1, Immature Granulocyte % (Auto) 2, Neutrophils (%) (Auto) 81H, Lymphocytes (%) (Auto) 12, Monocytes (%) (Auto) 4, Eosinophils (%) (Auto) 1, Basophils (%) (Auto) 0, Neutrophils # (Auto) 12.9H, Lymphocytes # (Auto) 1.8, Monocytes # (Auto) 0.7, Eosinophils # (Auto) 0.2, Basophils # (Auto) 0.1, Immature Granulocyte # (Auto) 0.3H, Sodium Level 136, Potassium Level 3.4L, Chloride Level 105, Carbon Dioxide Level 21, Anion Gap 10, Blood Urea Nitrogen 9, Creatinine 0.82, Estimat Glomerular Filtration Rate 89, BUN/Creatinine Ratio 11, Glucose Level 98, Calcium Level 7.1L, Corrected Calcium 8.9, Magnesium Level 1.8, Total Bilirubin 0.3, Aspartate Amino Transf (AST/SGOT) 22, Alanine Aminotransferase (ALT/SGPT) 16, Alkaline Phosphatase 48, Total Protein 5.3L, Albumin 1.8L Microbiology 02/22/23 Blood Culture - Preliminary, Resulted No growth 02/15/23 MRSA Screen - Final, Complete MRSA not isolated 02/11/23 Gram Stain - Final, Complete 02/11/23 Anaerobic Culture - Final, Complete Bacteroides ovatus 02/11/23 Surgical Culture - Final, Complete Escherichia coli Mixed Bacterial Roberta See Comments 02/10/23 Urine Culture - Final, Complete Lactobacillus species Assessment/Plan Assessment/Plan Assessment/Plan 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 Feeling better slightly. Was more fatigued earlier. She feels she over did it and got some pain medication which helped. Using IS. Colostomy functioning. Tolerating diet. Denies n/v fever sweats chill or chest pain at this time WBC slightly decreased from yesterday. Objective Exam General Appearance: No Apparent Distress, Chronically ill HEENT: PERRL/EOMI, Moist Mucous Membranes Neck: Non Tender, Supple Respiratory: Chest Non Tender, No Accessory Muscle Use, No Respiratory Distress Gastrointestinal: soft, tenderness (all quadrants, described more as soreness from moving more), other (stool visible in colostomy bag, stoma appears pinkish, Wound VAC in place) Extremity: Pedal Edema (edema 1+ b/l and up thighs, is improved from yesterday) Neurologic/Psychiatric: Alert, Oriented x3; No Aphasia Skin: Normal Color, Warm/Dry Lymphatic: No Adenopathy (cervical) Assessment/Plan Assessment/Plan Assessment/Plan 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 Luekocytosis (15.9, down from 18.1) Pneumonia Hypokalemia Anemia * Continue pain management, currently well controlled * tolerating soft diet with protein, appetite increasing * continued on PNA Abx regimen (working well) * Encouraged patient to continue to use their IS and continue ambulating * getting supplements, at 3.4 today, appears to be stabilizing * current Hgb today is 7.6, -trend * IS * Cough and deep breath * Continue on lasix Supervisory-Addendum Brief Verification & Attestation Participated in pt care: history, MDM, physical Personally performed: exam, history, MDM, supervision of care Care discussed with: Medical Student Procedures: n/a Results interpretation: Verified all documentation Verification and Attestation of Medical Student E/M Service A medical student performed and documented this service in my presence. I reviewed and verified all information documented by the medical student and made modifications to such information, when appropriate. I personally performed the physical exam and medical decision making. Lucila Ingram, Feb 24, 2023,20:07 ISAURO MENDEZ Feb 24, 2023 07:29 LUCILA INGRAM DO Feb 24, 2023 20:07
[2023-02-24 07:56] VITALS: BP 136/64
[2023-02-24] MEDS: RT-ALBUTEROL/IPRATROPIUM 3 ML (DUONEB) VIAL INH SCH ×5 (07:58→21:34)
--- NOTE | 2023-02-24 08:28 | Diagnostic Imaging Report ---
Indication: Effusion. Comparison made with prior exam of 02/22/23 FINDINGS: Heart size is normal. There is a right basal infiltrate and right pleural effusion. There is no pneumothorax. The mediastinum is unremarkable. IMPRESSION: Right basal infiltrate and right pleural effusion. Dictated by: Dictated on workstation # [id number]
[2023-02-24] MEDS: NYSTATIN ORAL SUSP 5 ML UDC PO SCH ×4 (08:31→19:54)
[2023-02-24] MEDS: LORazepam 0.5 MG (ATIVAN) TABLET PO PRN ×3 (08:31→19:54)
[2023-02-24] MEDS: PANTOPRAZOLE 40 MG (PROTONIX) VIAL IV SCH (08:31)
[2023-02-24] MEDS: KCL 8 MEQ (MICRO K) TABLET PO SCH ×2 (08:31→17:29)
[2023-02-24] MEDS: fluCOnazole (DIFLUCAN) 100 MG TAB PO SCH (08:32)
[2023-02-24] MEDS ORDERED: KCL 20 MEQ TAB (K-DUR) PO ONE (09:00)
[2023-02-24] MEDS: VANCOMYCIN 1 GM/NS 250 ML IVPB IV SCH ×4 (10:04→21:13)
[2023-02-24] MEDS ORDERED: IRON SUCROSE 200 MG/10 ML (VENOFER) VIAL IV SCH (10:30)
[2023-02-24] MEDS ORDERED: FUROSEMIDE 40 MG/4 ML INJ (LASIX) IVP ONE (10:30)
[2023-02-24] MEDS ORDERED: CYANOCOBALAMIN INJ 1000 MCG/ML IM ONE (10:30)
--- NOTE | 2023-02-24 11:23 | Progress Note - Hospitalist ---
PAZ SANTANA 02/24/23 1122: Subjective HPI/CC On Admission Patient is a 48 year old female with history of diverticulosis and tendonitis who presented to the ED last night for LLQ abd pain radiating into her back. She reports being diagnosed with the flu on january 30 that caused her to be mostly bed ridden. She began to experience LLQ abd pain a week ago that has gradually worsened, She describes it as sharp in nature. She reports having a small BM yesterday with no blood. In the ED she was found to be tachycardic w/ mild leukocytosis, anion gap metabolic acidosis, hyponatrema, and hypokalemia. Toxicology was positive for canabinoids which patient endorses trying 2 weeks [address] [place] CT imaging in the ED revealed sigmoid diverticulitis w/ 3.2x4.6cm abscess adjacent to inflamed bowel. Subjective/Events-last exam This patient was awake sitting in her chair when seen this morning. Her Hgb is steady today at 7.7. Her WBC is mildly improved to 15.1 today. Vanc Trough yesterday was appropriate. She reports an improvement in her SOB and cough following adjusting her abx, Lasix 40mg IV, and placing leg compression yeste rday. She was -2.4L fluid yesterday. She is still up 12L total on her stay per EMR. She reports still having Right lower chest chest pain but reports it has improved. She has been up walking and reports tolerating it well. Her appetite is improving. She denies CP, palpitations, N/V/D, weakness/numbness arms or legs. Review of Systems General: No Chills HEENT: No Head Aches Pulmonary: Dyspnea, Cough, Pleuritic Chest Pain Cardiovascular: No: Chest Pain, Palpitations Gastrointestinal: Abdominal Pain; No: Nausea, Vomiting, Diarrhea Genitourinary: No Dysuria, No Hematuria Neurological: No: Weakness, Numbness Objective Exam Vital Signs Vital Signs Date Time Temp Pulse Resp B/P (MAP) Pulse Ox O2 Delivery O2 Flow Rate FiO2 02/24/23 08:15 Room Air 02/24/23 08:01 94 0.00 02/24/23 07:56 36.6 106 18 136/64 (88) 02/20/23 12:11 21 Capillary Refill : Less Than 3 Seconds General Appearance: No Apparent Distress, WD/WN HEENT: Pharynx Normal, Moist Mucous Membranes Neck: Non Tender, Supple Respiratory: Chest Non Tender, No Accessory Muscle Use, No Respiratory Distress, Decreased Breath Sounds (Diminished RLL breath sounds compared to left) Cardiovascular: Regular Rate, Rhythm, No Murmur, Normal Peripheral Pulses Gastrointestinal: Normal Bowel Sounds; No Distended; Tenderness (around wound midline. Wound vac in place w/ serosanguinous fluid) Extremity: Normal Capillary Refill, Non Tender, No Calf Tenderness, Swelling (1-2+ pitting edema legs bilaterally) Neurologic/Psychiatric: Alert, Oriented x3, No Motor/Sensory Deficits Skin: Normal Color, Warm/Dry Lymphatic: No Adenopathy Results/Procedures Lab Laboratory Tests 02/24/23 04:28 Patient resulted labs reviewed. Imaging: Reviewed Imaging Films Assessment/Plan Assessment and Plan Assess & Plan/Chief Complaint Day 5 S/P Colectomy w/ end ileostomy, appendectomy, and omentectomy -Continue abx w/ adjustments as below. Control pain. Encourage mobility as tolerated. -Soft diets and advance as able. -Wound vac in place. Wound care helping manage. Surgery following. -Monitor labs Anemia -(02/21) Hgb 6.9 today. 1 unit pRBC given -(02/22) Hgb 9.1 S/P 1 unit pRBC. Large increase indicates there may have been a dilutional compnent involved. Will monitor. -(02/23) Hgb 7.8 today. Will monitor to ensure it doesn't drop further tomorrow and work up as needed if so. -(02/24) Hgb 7.7 today. Appears stabilized. Continue to monitor RLL Pleural Effusion and/or pneumonia -02/22 CXR -> New bibasilar opacities, right > Left, with combination of effusion w/ atelectasis , infiltrate, and/or edema. Cardiac enlargement appearing more prominent. -Abx switched from Ceftriaxone 1g Q24hr & Metronidazole 0.5g Q12hr --> Vancomycin 1.25g IV Q12hr & Meropenem 500mg Q6hr IV for pneumonia coverage. Continue Neb breathing treatments. -Patient received Lasix 10mg IV once on 02/20 and once on 02/21. 40mg Lasix IV given 02/23 --> 2.4L negative following. -(02/23) - CXR appears rather unchanged. Will continue abx and lasix. Will continue to assess need for thoracentesis if Patients breathing worsens or CXR worsens. -Monitor vitals and if SOB worsens or patient begins to need supplemental oxygen then will consider ultrasound to assess need for thoracentesis to drain fluid. Sepsis 2nd to diverticulitis w/ abscess -Pt met SIRS criteria with tachycardia, leukocytosis, and suspsected source of infection -02/10 CT revealed sigmoid diverticulitis with 3.2x4.6cm abscess adjacent to inflamed bowel. Leukocytosis -(02/22):WBC 18.6 today, increased from 15.7 yesterday. Pt. had increased SOB and cough overnight and new Right UQ/lower chest pain following in the setting of increased WBC. Will order CXR to rule out pneumonia vs. pleural effusion vs. pneumo. -(02/23): CXR results as above. Abx initiated. WBC today 18.1. Monitor. -(02/24): continues to have RLL and/or pneumonia. WBC today 15.9. Monitor. Hypokalemia -3.4 again today. Will continue to replace and monitor. Metabolic acidosis w/ high anion gap -resolved Hyponatremia -Improved after IVF. Monitor Diet: soft diet DVT Proph: lovenox KAREN TRACY DO 02/25/23 0441: Assessment/Plan Assessment and Plan Assess & Plan/Chief Complaint Much improved overall Partner at bedside appears to be very angry every day so will try to reassure Partner is adamant about seeing the actual CXR imaging although he is not a heal thcare professional so I passed that along to nurse to talk to charge nurse Supervisory-Addendum Brief Verification & Attestation Participated in pt care: history, MDM, physical Personally performed: exam, history, MDM, supervision of care Care discussed with: Medical Student Procedures: n/a Results interpretation: Verified all documentation Verification and Attestation of Medical Student E/M Service A medical student performed and documented this service in my presence. I reviewed and verified all information documented by the medical student and made modifications to such information, when appropriate. I personally performed the physical exam and medical decision making. Karen Tracy Feb 25, 2023,04:38 PAZ SANTANA Feb 24, 2023 11:22 KAREN TRACY DO Feb 25, 2023 04:41
[2023-02-24 11:34] VITALS: BP 135/65
[2023-02-24] MEDS: ENOXAPARIN 40 MG/0.4 ML (LOVENOX) SYR SC SCH (12:20)
[2023-02-24 15:55] VITALS: BP 137/64
[2023-02-24 19:55] VITALS: BP 109/66
[2023-02-25] VITALS (7 sets, daily range): BP systolic 112–129; BP diastolic 57–76
[2023-02-25] MEDS: HYDROcodone/APAP 5 MG/325 MG (LORTAB) TAB PO PRN ×6 (00:30→20:47)
[2023-02-25] MEDS: MEROPENEM 500 MG/NS 100 ML IVPB IV SCH ×8 (01:47→20:48)
[2023-02-25] MEDS: RT-ALBUTEROL/IPRATROPIUM 3 ML (DUONEB) VIAL INH SCH ×6 (03:20→22:40)
[2023-02-25 04:22] LABS: BASOPHILS # (AUTO) 0.1 10^3/uL (0.0-0.1); BASOPHILS % (AUTO) 0 % (0-10); EOSINOPHILS # (AUTO) 0.2 10^3/uL (0.0-0.3); EOSINOPHILS % (AUTO) 1 % (0-10); HEMATOCRIT 22 % (35-52); HEMOGLOBIN 7.3 g/dL (11.5-16.0); LYMPHOCYTES # (AUTO) 2.4 10^3/uL (1.0-4.0); LYMPHOCYTES % (AUTO) 17 % (12-44); MEAN CORPUSCULAR HEMOGLOBIN 30 pg (25-34); MEAN CORPUSCULAR HGB CONC 33 g/dL (32-36); MEAN CORPUSCULAR VOLUME 89 fL (80-99); MEAN PLATELET VOLUME 10.9 fL (9.0-12.2); MONOCYTES # (AUTO) 0.8 10^3/uL (0.0-1.0); MONOCYTES % (AUTO) 5 % (0-12); NEUTROPHILS # (AUTO) 10.4 10^3/uL (1.8-7.8); NEUTROPHILS % (AUTO) 74 % (42-75); PLATELET COUNT 537 10^3/uL (130-400); WHITE BLOOD COUNT 14.1 10^3/uL (4.3-11.0)
[2023-02-25 04:32] LABS: POTASSIUM 3.7 MMOL/L (3.6-5.0)
[2023-02-25 04:33] LABS: CALCIUM 7.4 MG/DL (8.5-10.1)
[2023-02-25 04:34] LABS: TOTAL PROTEIN 5.8 GM/DL (6.4-8.2)
[2023-02-25 04:36] LABS: BILIRUBIN,TOTAL 0.3 MG/DL (0.1-1.0)
[2023-02-25 04:38] LABS: CREATININE SERUM 0.82 MG/DL (0.60-1.30)
[2023-02-25] MEDS: KCL 20 MEQ TAB (K-DUR) PO SCH (05:14)
[2023-02-25] MEDS: POTASSIUM CL 10MEQ/50ML IVPB 50 ML IV SCH (05:14)
[2023-02-25] MEDS: MAGNESIUM 1 GM/100 ML IVPB 100 ML IV SCH ×3 (05:51→08:02)
[2023-02-25] MEDS: CYANOCOBALAMIN 1,000 MCG (VITAMIN B-12) TABLET PO SCH (06:03)
[2023-02-25] MEDS ORDERED: KCL 20 MEQ TAB (K-DUR) PO ONE (07:00)
[2023-02-25] MEDS: NYSTATIN ORAL SUSP 5 ML UDC PO SCH ×4 (08:02→20:47)
[2023-02-25] MEDS: PANTOPRAZOLE 40 MG (PROTONIX) VIAL IV SCH (08:03)
[2023-02-25] MEDS: fluCOnazole (DIFLUCAN) 100 MG TAB PO SCH (08:03)
[2023-02-25] MEDS: KCL 8 MEQ (MICRO K) TABLET PO SCH ×2 (08:03→17:38)
--- NOTE | 2023-02-25 08:10 | Progress Note - Surgery ---
ISAURO MENDEZ 02/25/23 0810: Subjective Date Seen by a Provider: Feb 25, 2023 Time Seen by a Provider: 06:40 Subjective/Events-last exam Pt was awake laying in bed, her had just left to go to work. She is much more energetic, and appears to be recovering well! She does appear a little a gitated with hospital staff and got upset with housekeeping for interrupting her exam this morning. Lasix continues to help her edema, and she says she can finally notice the fluid coming off of her hips. She mentioned that she has always been anemic since she was little and she took both B12 and Iron supplement treatments as a kid. She denies feeling lightheaded or more tired, CP, n/v/d, dysuria, or any new onset of pain. +for abd tenderness along her left quadrants when she is exerting herself rates all pain as a 2-3/10. She says she thinks shes just ready to go home Review of Systems General: No Chills, No Night Sweats, No Malaise HEENT: No Head Aches, No Visual Changes, No Dysphasia Pulmonary: Dyspnea (improving, mainly with exertion now), Cough (decreasing in frequency, reports it as feeling more dry); No Pleuritic Chest Pain Cardiovascular: Edema (1+, body weight trending down from fluid loss); No: Chest Pain, Palpitations, Orthopnea, Lt Headedness Gastrointestinal: Abdominal Pain; No: Nausea, Vomiting, Constipation, Melena, Hematochezia Genitourinary: No Dysuria, No Incontinence, No Hematuria Musculoskeletal: back pain (stiff from bed rest), leg pain (says legs will get a little sore when walking around) Neurological: No: Change in speech, Confusion Objective Exam Vital Signs Date Time Temp Pulse Resp B/P (MAP) Pulse Ox O2 Delivery O2 Flow Rate FiO2 02/25/23 07:07 96 Room Air 02/25/23 04:00 37.4 101 18 112/64 (80) 93 Room Air 02/25/23 03:20 97 Room Air 02/25/23 00:43 36.8 02/25/23 00:00 37.3 111 20 117/64 (81) 95 Room Air 02/24/23 21:34 96 Room Air 02/24/23 20:00 Room Air 02/24/23 19:55 37.1 90 20 109/66 (80) 96 Room Air 02/24/23 19:15 97 Room Air 02/24/23 15:55 37.5 110 18 137/64 (88) 95 Room Air 02/24/23 15:01 95 Room Air 0.00 02/24/23 11:34 36.8 100 18 135/65 (88) 93 Room Air 02/24/23 11:14 95 Room Air 0.00 02/24/23 08:15 Room Air I & O 02/25/23 07:00 Intake Total 2780 ml Output Total 5350 ml Balance -2570 ml Capillary Refill : Less Than 3 Seconds General Appearance: Anxious, Chronically ill, Other (agitated/restless) HEENT: PERRL/EOMI, Moist Mucous Membranes; No Photophobia, No Scleral Icterus (L), No Scleral Icterus (R) Neck: Full Range of Motion, Non Tender, Supple Respiratory: Chest Non Tender, No Accessory Muscle Use, No Respiratory Distress, Decreased Breath Sounds (right base) Cardiovascular: No Murmur, Normal Peripheral Pulses, Tachycardia Peripheral Pulses: 2+ Dorsalis Pedis (R), 2+ Left Dors-Pedis (L), 2+ Radial Pulses (R), 2+ Radial Pulses (L) Gastrointestinal: soft, tenderness (all quadrants, from moving more, described as just feeling tight 2/10), other (stool visible in colostomy bag, stoma appe ars pinkish, Wound VAC in place) Extremity: No Calf Tenderness; No Inflammation; Pedal Edema (edema 1+ b/l and up thighs, is improved from yesterday) Neurologic/Psychiatric: Alert, Oriented x3; No Aphasia; Other (there was some facial twitching on her upper lip b/l when she was talking. (-)chvostek ) Skin: Normal Color, Warm/Dry Lymphatic: No Adenopathy (cervical) Results Lab Laboratory Tests 02/24/23 11:20: Vitamin B12 Level 1036 02/25/23 04:15: White Blood Count 14.1H, Red Blood Count 2.46L, Hemoglobin 7.3L, Hematocrit 22L, Mean Corpuscular Volume 89, Mean Corpuscular Hemoglobin 30, Mean Corpuscular Hemoglobin Concent 33, Red Cell Distribution Width 15.3H, Platelet Count 537H, Mean Platelet Volume 10.9, Immature Granulocyte % (Auto) 2, Neutrophils (%) (Auto) 74, Lymphocytes (%) (Auto) 17, Monocytes (%) (Auto) 5, Eosinophils (%) (Auto) 1, Basophils (%) (Auto) 0, Neutrophils # (Auto) 10.4H, Lymphocytes # (Auto) 2.4, Monocytes # (Auto) 0.8, Eosinophils # (Auto) 0.2, Basophils # (Auto) 0.1, Immature Granulocyte # (Auto) 0.3H, Sodium Level 136, Potassium Level 3.7, Chloride Level 104, Carbon Dioxide Level 22, Anion Gap 10, Blood Urea Nitrogen 9, Creatinine 0.82, Estimat Glomerular Filtration Rate 89, BUN/Creatinine Ratio 11, Glucose Level 100, Calcium Level 7.4L, Corrected Calcium 9.0, Magnesium Level 1.9, Total Bilirubin 0.3, Aspartate Amino Transf (AST/SGOT) 18, Alanine Aminotransferase (ALT/SGPT) 12, Alkaline Phosphatase 53, Total Protein 5.8L, Albumin 2.0L Microbiology 02/22/23 Blood Culture - Preliminary, Resulted No growth 02/15/23 MRSA Screen - Final, Complete MRSA not isolated 02/11/23 Gram Stain - Final, Complete 02/11/23 Anaerobic Culture - Final, Complete Bacteroides ovatus 02/11/23 Surgical Culture - Final, Complete Escherichia coli Mixed Bacterial Roberta See Comments 02/10/23 Urine Culture - Final, Complete Lactobacillus species Assessment/Plan Assessment/Plan Assessment/Plan S/P Colectomy - [facility]an's Procedure with end Colostomy Luekocytosis (14.1, down from 15.9) Pneumonia + right pleural effusion Anemia * Continue pain management, currently well controlled * tolerating soft diet with protein, appetite increasing * continued on PNA Abx regimen (working well), consider transitioning to oral abx to monitor tolerance. * current Hgb today is 7.3, -trend. MCV slowly rising, give iron and transfuse if Hgb drops below 7. * IS * Cough and deep breath * Continue on lasix and leg wraps + ambulation LUCILA MALDONADO DO 02/25/23 8196: Subjective Subjective/Events-last exam Continues to feel better. Still a ways to go though. Working to get breathing better. Pain controlled. Swelling of legs improving. Happy to have regular food. Colostomy functioning. Wound vac changed. Denies n/v fever sweats chills or chest pain. Still some shortness of breath but better. Objective Exam General Appearance: No Apparent Distress, Anxious, Chronically ill HEENT: PERRL/EOMI, Moist Mucous Membranes Neck: Full Range of Motion, Non Tender, Supple Respiratory: Chest Non Tender, No Accessory Muscle Use, No Respiratory Distress, Decreased Breath Sounds (right base) Cardiovascular: Regular Rate, Rhythm, No JVD Gastrointestinal: soft, tenderness (all quadrants minimal, from moving more, described as just feeling tight 2/10), other (stool visible in colostomy bag, stoma appears pinkish, Wound VAC in place) Extremity: No Calf Tenderness; No Inflammation; Pedal Edema (edema 1+ b/l and up thighs, is improved from yesterday) Neurologic/Psychiatric: Alert, Oriented x3 Skin: Normal Color, Warm/Dry Lymphatic: No Adenopathy (cervical) Assessment/Plan Assessment/Plan Assessment/Plan S/P partial Colectomy - Sloan's Procedure with end Colostomy Luekocytosis (14.1, down from 15.9) Pneumonia + right pleural effusion Anemia * Continue pain management, currently well controlled * tolerating soft diet with protein, appetite increasing * continued on PNA Abx regimen * current Hgb today is 7.3, -trend. MCV slowly rising, give iron and transfuse if Hgb drops below 7. * IS * Cough and deep breath * Continue on lasix and leg wraps + ambulation * Wound vac changed today. * Supervisory-Addendum Brief Verification & Attestation Participated in pt care: history, MDM, physical Personally performed: exam, history, MDM, supervision of care Care discussed with: Medical Student Procedures: n/a Results interpretation: Verified all documentation Verification and Attestation of Medical Student E/M Service A medical student performed and documented this service in my presence. I re viewed and verified all information documented by the medical student and made modifications to such information, when appropriate. I personally performed the physical exam and medical decision making. Lucila Maldonado, Feb 25, 2023,15:55 ISAURO MENDEZ Feb 25, 2023 08:10 LUCILA MALDONADO DO Feb 25, 2023 15:56
[2023-02-25] MEDS: LORazepam 0.5 MG (ATIVAN) TABLET PO PRN ×2 (10:24→15:34)
[2023-02-25] MEDS: VANCOMYCIN 1 GM/NS 250 ML IVPB IV SCH ×4 (10:24→20:50)
[2023-02-25] MEDS ORDERED: FUROSEMIDE 40 MG/4 ML INJ (LASIX) IVP NR (11:30)
--- NOTE | 2023-02-25 12:11 | Progress Note - Hospitalist ---
PAZ SANTANA 02/25/23 1211: Subjective HPI/CC On Admission Date Seen by Provider: Feb 25, 2023 Time Seen by Provider: 08:40 Patient is a 48 year old female with history of diverticulosis and tendonitis who presented to the ED last night for LLQ abd pain radiating into her back. She reports being diagnosed with the flu on january 30 that caused her to be mostly bed ridden. She began to experience LLQ abd pain a week ago that has gradually worsened, She describes it as sharp in nature. She reports having a small BM yesterday with no blood. In the ED she was found to be tachycardic w/ mild leukocytosis, anion gap metabolic acidosis, hyponatrema, and hypokalemia. Toxicology was positive for canabinoids which patient endorses trying 2 weeks ago in [place]. CT imaging in the ED revealed sigmoid diverticulitis w/ 3.2x4.6cm abscess adjacent to inflamed bowel. Subjective/Events-last exam This patient was awake sitting in bed about to take a shower wheen seen this morning. She reports feeling much better today than yesterday with an improvement in her breathing. She was given a 2nd dose of Lasix 40mg IV yesterday and had a net loss of 2.6L fluid yesterday, making net loss of 5L since 02/23. As of this time she is still 9.5L fluid positive since admission per EMR. Her Leukocytosis is improving and is 14.1 today. Hgb today 7.3. She has been up moving in her room and walking in the halls. She has wound vac in place with serosanguinous drainage and ostomy bag in place and working properly. She denies LH, CP, palpitations, Numbness/weakness in arms or legs. Review of Systems General: No Chills; Appetite (improving) HEENT: No Head Aches, No Visual Changes Pulmonary: Dyspnea, Cough Cardiovascular: Chest Pain (Right lower thoracic pain) Gastrointestinal: Abdominal Pain (mildly improved); No: Nausea, Vomiting, Constipation Genitourinary: No Dysuria, No Hematuria Neurological: No: Weakness, Numbness Objective Exam Vital Signs Vital Signs Date Time Temp Pulse Resp B/P (MAP) Pulse Ox O2 Delivery O2 Flow Rate FiO2 02/25/23 10:31 96 Room Air 02/25/23 08:51 37.2 109 18 129/63 (85) 02/24/23 15:01 0.00 02/20/23 12:11 21 Capillary Refill : Less Than 3 Seconds General Appearance: No Apparent Distress, WD/WN HEENT: PERRL/EOMI, Pharynx Normal, Moist Mucous Membranes Respiratory: Chest Non Tender, No Accessory Muscle Use, No Respiratory Distress, Decreased Breath Sounds (RLL) Cardiovascular: Regular Rate, Rhythm, No Murmur, Normal Peripheral Pulses Gastrointestinal: Normal Bowel Sounds, Soft, Other (Wound vac present with serosanguinous drainage present. Colostomy bag in place with good output. ) Back: Normal Inspection Extremity: Normal Capillary Refill, Non Tender, No Calf Tenderness, Swelling (1+ pitting edema in legs bilaterally) Neurologic/Psychiatric: Alert, Oriented x3, No Motor/Sensory Deficits Skin: Normal Color, Warm/Dry Lymphatic: No Adenopathy Results/Procedures Lab Laboratory Tests 02/25/23 04:15 Patient resulted labs reviewed. Imaging: Reviewed Imaging Films Assessment/Plan Assessment and Plan Assess & Plan/Chief Complaint Day 9 S/P Colectomy w/ end ileostomy, appendectomy, and omentectomy -Continue abx w/ adjustments as below. Control pain. Encourage mobility as tolerated. -Soft diets and advance as able. -Wound vac in place. Wound care helping manage. Surgery following. -Monitor labs Anemia -(02/21) Hgb 6.9 today. 1 unit pRBC given -(02/22) Hgb 9.1 S/P 1 unit pRBC. Large increase indicates there may have been a dilutional compnent involved. Will monitor. -(02/23) Hgb 7.8 today. Will monitor to ensure it doesn't drop further tomorrow and work up as needed if so. -(02/24) Hgb 7.7 today. Appears stabilized. Continue to monitor RLL Pleural Effusion and/or pneumonia -02/22 CXR -> New bibasilar opacities, right > Left, with combination of effusion w/ atelectasis , infiltrate, and/or edema. Cardiac enlargement appearing more prominent. -Abx switched from Ceftriaxone 1g Q24hr & Metronidazole 0.5g Q12hr --> Vancomycin 1.25g IV Q12hr & Meropenem 500mg Q6hr IV for pneumonia coverage. Continue Neb breathing treatments. -Patient received Lasix 10mg IV once on 02/20 and once on 02/21. 40mg Lasix IV given 02/23 --> 2.4L negative following. -(02/24) - CXR appears rather unchanged. Will continue abx and lasix. Will continue to assess need for thoracentesis if Patients breathing worsens or CXR worsens. -(02/25) - Patient continues to have improved breathing and energy w/ abx and lasix. Will continue for now as she still has significant peripheral edema and encourage good protein intake. She does still have significant decreased breath sound in RLL versus LLL. -Monitor vitals and if SOB worsens or patient begins to need supplemental oxygen then will consider ultrasound to assess need for thoracentesis to drain fluid. Sepsis 2nd to diverticulitis w/ abscess -Pt met SIRS criteria with tachycardia, leukocytosis, and suspsected source of infection -02/10 CT revealed sigmoid diverticulitis with 3.2x4.6cm abscess adjacent to inflamed bowel. Leukocytosis -(02/22):WBC 18.6 today, increased from 15.7 yesterday. Pt. had increased SOB and cough overnight and new Right UQ/lower chest pain following in the setting of increased WBC. Will order CXR to rule out pneumonia vs. pleural effusion vs. pneumo. -(02/23): CXR results as above. Abx initiated. WBC today 18.1. Monitor. -(02/24): continues to have RLL and/or pneumonia. WBC today 15.9. Monitor. -(02/25): WBC 14.1. Overall condition seems to be improving. Hypokalemia -3.7 today. appears resolved. Will continue to monitor. Metabolic acidosis w/ high anion gap -resolved Hyponatremia -Improved after IVF. Monitor Diet: soft diet DVT Proph: [email or web address] KAREN TRACY 02/25/23 1642: Supervisory-Addendum Brief Verification & Attestation Participated in pt care: history, MDM, physical Personally performed: exam, history, MDM, supervision of care Care discussed with: Medical Student Procedures: n/a Results interpretation: Verified all documentation Verification and Attestation of Medical Student E/M Service A medical student performed and documented this service in my presence. I reviewed and verified all information documented by the medical student and made modifications to such information, when appropriate. I personally performed the physical exam and medical decision making. Karen Tracy, Feb 25, 2023,16:42 PAZ SANTANA Feb 25, 2023 12:11 KAREN TRACY DO Feb 25, 2023 16:42
[2023-02-25] MEDS: ENOXAPARIN 40 MG/0.4 ML (LOVENOX) SYR SC SCH (12:28)
[2023-02-26 00:06] VITALS: BP 118/56
[2023-02-26] MEDS: HYDROcodone/APAP 5 MG/325 MG (LORTAB) TAB PO PRN ×6 (02:22→23:20)
[2023-02-26] MEDS: MEROPENEM 500 MG/NS 100 ML IVPB IV SCH ×8 (02:22→20:56)
[2023-02-26] MEDS: RT-ALBUTEROL/IPRATROPIUM 3 ML (DUONEB) VIAL INH SCH ×6 (02:50→21:33)
[2023-02-26 03:40] VITALS: BP 119/58
[2023-02-26 05:24] LABS: BASOPHILS # (AUTO) 0.1 10^3/uL (0.0-0.1); BASOPHILS % (AUTO) 1 % (0-10); EOSINOPHILS # (AUTO) 0.2 10^3/uL (0.0-0.3); EOSINOPHILS % (AUTO) 2 % (0-10); HEMATOCRIT 24 % (35-52); HEMOGLOBIN 7.8 g/dL (11.5-16.0); LYMPHOCYTES # (AUTO) 1.9 10^3/uL (1.0-4.0); LYMPHOCYTES % (AUTO) 15 % (12-44); MEAN CORPUSCULAR HEMOGLOBIN 29 pg (25-34); MEAN CORPUSCULAR HGB CONC 33 g/dL (32-36); MEAN CORPUSCULAR VOLUME 88 fL (80-99); MONOCYTES # (AUTO) 0.7 10^3/uL (0.0-1.0); MONOCYTES % (AUTO) 5 % (0-12); NEUTROPHILS # (AUTO) 9.9 10^3/uL (1.8-7.8); NEUTROPHILS % (AUTO) 76 % (42-75); PLATELET COUNT 668 10^3/uL (130-400)
[2023-02-26 05:44] LABS: ALBUMIN 2.3 GM/DL (3.2-4.5); BILIRUBIN,TOTAL 0.3 MG/DL (0.1-1.0); CALCIUM 7.9 MG/DL (8.5-10.1); CREATININE SERUM 0.93 MG/DL (0.60-1.30); POTASSIUM 4.1 MMOL/L (3.6-5.0); TOTAL PROTEIN 6.6 GM/DL (6.4-8.2)
[2023-02-26] MEDS: KCL 20 MEQ TAB (K-DUR) PO SCH (05:50)
[2023-02-26] MEDS: POTASSIUM CL 10MEQ/50ML IVPB 50 ML IV SCH (05:50)
--- NOTE | 2023-02-26 06:02 | Progress Note - Hospitalist ---
Subjective HPI/CC On Admission Date Seen by Provider: Feb 26, 2023 Time Seen by Provider: 11:00 Patient is a 48 year old female with history of diverticulosis and tendonitis who presented to the ED last night for LLQ abd pain radiating into her back. She reports being diagnosed with the flu on january 30 that caused her to be mostly bed ridden. She began to experience LLQ abd pain a week ago that has gradually worsened, She describes it as sharp in nature. She reports having a small BM yesterday with no blood. In the ED she was found to be tachycardic w/ mild leukocytosis, anion gap metabolic acidosis, hyponatrema, and hypokalemia. Toxicology was positive for canabinoids which patient endorses trying 2 weeks ago in [place]. CT imaging in the ED revealed sigmoid diverticulitis w/ 3.2x4.6cm abscess adjacent to inflamed bowel. Subjective/Events-last exam Doing well Wound vac in place Labs noted Walking ad oni No pain Review of Systems General: Fatigue, Malaise Objective Exam Vital Signs Vital Signs Date Time Temp Pulse Resp B/P (MAP) Pulse Ox O2 Delivery O2 Flow Rate FiO2 02/26/23 14:34 97 Room Air 02/26/23 11:23 36.6 101 18 116/62 (80) 02/25/23 15:01 21 02/24/23 15:01 0.00 Capillary Refill : Less Than 3 Seconds General Appearance: No Apparent Distress, WD/WN, Chronically ill Respiratory: Lungs Clear, Normal Breath Sounds Cardiovascular: Regular Rate, Rhythm Neurologic/Psychiatric: Alert, Oriented x3, No Motor/Sensory Deficits, Normal Mood/Affect Results/Procedures Lab Laboratory Tests 02/26/23 05:14 Patient resulted labs reviewed. Imaging: Reviewed Imaging Films Assessment/Plan Assessment and Plan Assess & Plan/Chief Complaint Assess & Plan/Chief Complaint Day 9 S/P Colectomy w/ end ileostomy, appendectomy, and omentectomy -Continue abx w/ adjustments as below. Control pain. Encourage mobility as tolerated. -Soft diets and advance as able. -Wound vac in place. Wound care helping manage. Surgery following. -Monitor labs Anemia -(02/21) Hgb 6.9 today. 1 unit pRBC given -(02/22) Hgb 9.1 S/P 1 unit pRBC. Large increase indicates there may have been a dilutional compnent involved. Will monitor. -(02/23) Hgb 7.8 today. Will monitor to ensure it doesn't drop further tomorrow and work up as needed if so. -(02/24) Hgb 7.7 today. Appears stabilized. Continue to monitor RLL Pleural Effusion and/or pneumonia -02/22 CXR -> New bibasilar opacities, right > Left, with combination of effusion w/ atelectasis , infiltrate, and/or edema. Cardiac enlargement appearing more prominent. -Abx switched from Ceftriaxone 1g Q24hr & Metronidazole 0.5g Q12hr --> Vancomycin 1.25g IV Q12hr & Meropenem 500mg Q6hr IV for pneumonia coverage. Continue Neb breathing treatments. -Patient received Lasix 10mg IV once on 02/20 and once on 02/21. 40mg Lasix IV given 02/23 --> 2.4L negative following. -(02/24) - CXR appears rather unchanged. Will continue abx and lasix. Will continue to assess need for thoracentesis if Patients breathing worsens or CXR worsens. -(02/25) - Patient continues to have improved breathing and energy w/ abx and lasix. Will continue for now as she still has significant peripheral edema and encourage good protein intake. She does still have significant decreased breath sound in RLL versus LLL. -Monitor vitals and if SOB worsens or patient begins to need supplemental oxygen then will consider ultrasound to assess need for thoracentesis to drain fluid. Sepsis 2nd to diverticulitis w/ abscess -Pt met SIRS criteria with tachycardia, leukocytosis, and suspsected source of infection -02/10 CT revealed sigmoid diverticulitis with 3.2x4.6cm abscess adjacent to inflamed bowel. Leukocytosis -(02/22):WBC 18.6 today, increased from 15.7 yesterday. Pt. had increased SOB and cough overnight and new Right UQ/lower chest pain following in the setting of increased WBC. Will order CXR to rule out pneumonia vs. pleural effusion vs. pneumo. -(02/23): CXR results as above. Abx initiated. WBC today 18.1. Monitor. -(02/24): continues to have RLL and/or pneumonia. WBC today 15.9. Monitor. -(02/25): WBC 14.1. Overall condition seems to be improving. Hypokalemia -3.7 today. appears resolved. Will continue to monitor. Metabolic acidosis w/ high anion gap -resolved Hyponatremia -Improved after IVF. Monitor Diet: soft diet DVT Proph: ALETHEA Faulkner DO Feb 26, 2023 06:02
[2023-02-26] MEDS: MAGNESIUM 1 GM/100 ML IVPB 100 ML IV SCH (06:27)
[2023-02-26] MEDS: CYANOCOBALAMIN 1,000 MCG (VITAMIN B-12) TABLET PO SCH (06:32)
[2023-02-26 07:47] VITALS: BP 114/61
[2023-02-26] MEDS: NYSTATIN ORAL SUSP 5 ML UDC PO SCH ×4 (09:23→20:59)
[2023-02-26] MEDS: PANTOPRAZOLE 40 MG (PROTONIX) VIAL IV SCH (09:23)
[2023-02-26] MEDS: KCL 8 MEQ (MICRO K) TABLET PO SCH ×2 (09:24→16:56)
[2023-02-26] MEDS: fluCOnazole (DIFLUCAN) 100 MG TAB PO SCH (09:24)
[2023-02-26] MEDS: VANCOMYCIN 1 GM/NS 250 ML IVPB IV SCH ×4 (10:23→20:56)
[2023-02-26 11:23] VITALS: BP 116/62
--- NOTE | 2023-02-26 11:43 | Progress Note ---
Subjective Date Seen by a Provider: Feb 26, 2023 Time Seen by a Provider: 10:50 Subjective/Events-last exam Patient seen with Dr. Rucker. Patient reports abdominal tenderness. Tolerating diet. No nausea or vomiting. Colostomy functioning. Wound vac in place. Objective Exam Vital Signs Date Time Temp Pulse Resp B/P (MAP) Pulse Ox O2 Delivery O2 Flow Rate FiO2 02/26/23 11:23 36.6 101 18 116/62 (80) 94 Room Air 02/26/23 10:37 97 Room Air 02/26/23 08:00 Room Air 02/26/23 07:47 36.7 104 18 114/61 (78) 94 Room Air 02/26/23 07:08 96 Room Air 02/26/23 03:40 37.4 102 18 119/58 (78) 94 Room Air 02/26/23 02:50 92 Room Air 02/26/23 00:06 36.6 101 20 118/56 (76) 95 Room Air 02/25/23 22:40 95 Room Air 02/25/23 20:47 Room Air 02/25/23 19:31 37.4 113 18 113/57 (75) 93 Room Air 02/25/23 19:17 93 Room Air 02/25/23 15:40 37.3 110 22 118/76 (90) 95 Room Air 02/25/23 15:01 36.6 110 98 21 02/25/23 14:59 98 Room Air 02/25/23 12:34 36.6 109 19 124/69 (87) 94 Room Air I & O 02/26/23 07:00 Intake Total 3230 ml Output Total 3650 ml Balance -420 ml Capillary Refill : Less Than 3 Seconds General Appearance: No Apparent Distress, WD/WN Neck: Normal Inspection, Supple Respiratory: No Accessory Muscle Use, No Respiratory Distress Gastrointestinal: normal bowel sounds, soft, tenderness, other (Colostomy pink and moist with stool in bag. Wound vac in place to mid abdomen with no signs of infection) Extremity: Normal Inspection, Normal Range of Motion Neurologic/Psychiatric: Alert, Oriented x3 Skin: Normal Color, Warm/Dry Results Lab Laboratory Tests 02/26/23 05:14: White Blood Count 13.0H, Red Blood Count 2.69L, Hemoglobin 7.8L, Hematocrit 24L, Mean Corpuscular Volume 88, Mean Corpuscular Hemoglobin 29, Mean Corpuscular Hemoglobin Concent 33, Red Cell Distribution Width 15.5H, Platelet Count 668H, Mean Platelet Volume 11.0, Immature Granulocyte % (Auto) 2, Neutrophils (%) (Auto) 76H, Lymphocytes (%) (Auto) 15, Monocytes (%) (Auto) 5, Eosinophils (%) (Auto) 2, Basophils (%) (Auto) 1, Neutrophils # (Auto) 9.9H, Lymphocytes # (Auto) 1.9, Monocytes # (Auto) 0.7, Eosinophils # (Auto) 0.2, Basophils # (Auto) 0.1, Immature Granulocyte # (Auto) 0.3H, Sodium Level 136, Potassium Level 4.1, Chloride Level 104, Carbon Dioxide Level 22, Anion Gap 10, Blood Urea Nitrogen 10, Creatinine 0.93, Estimat Glomerular Filtration Rate 77, BUN/Creatinine Ratio 11, Glucose Level 99, Calcium Level 7.9L, Corrected Calcium 9.3, Magnesium Level 2.1, Total Bilirubin 0.3, Aspartate Amino Transf (AST/SGOT) 22, Alanine Aminotransferase (ALT/SGPT) 17, Alkaline Phosphatase 62, Total Protein 6.6, Albumin 2.3L Microbiology 02/22/23 Blood Culture - Preliminary, Resulted No growth 02/15/23 MRSA Screen - Final, Complete MRSA not isolated 02/11/23 Gram Stain - Final, Complete 02/11/23 Anaerobic Culture - Final, Complete Bacteroides ovatus 02/11/23 Surgical Culture - Final, Complete Escherichia coli Mixed Bacterial Roberta See Comments 02/10/23 Urine Culture - Final, Complete Lactobacillus species Assessment/Plan Assessment/Plan Assess & Plan/Chief Complaint 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 IS Cough and deep breath Continue on lasix and leg wraps + ambulation MIKE DIAZ INTERVIEWING CLERK Feb 26, 2023 11:43
[2023-02-26] MEDS: ENOXAPARIN 40 MG/0.4 ML (LOVENOX) SYR SC SCH (13:12)
[2023-02-26] MEDS: LORazepam 0.5 MG (ATIVAN) TABLET PO PRN ×2 (13:15→18:54)
[2023-02-26 16:05] VITALS: BP 125/62
[2023-02-26 19:54] VITALS: BP 123/62
[2023-02-27] VITALS (10 sets, daily range): BP systolic 120–129; BP diastolic 58–77
[2023-02-27] MEDS: RT-ALBUTEROL/IPRATROPIUM 3 ML (DUONEB) VIAL INH SCH ×3 (02:25→19:14)
[2023-02-27] MEDS: MEROPENEM 500 MG/NS 100 ML IVPB IV SCH ×6 (02:27→13:37)
[2023-02-27 04:33] LABS: BASOPHILS # (AUTO) 0.1 10^3/uL (0.0-0.1); BASOPHILS % (AUTO) 1 % (0-10); EOSINOPHILS # (AUTO) 0.1 10^3/uL (0.0-0.3); EOSINOPHILS % (AUTO) 1 % (0-10); HEMATOCRIT 21 % (35-52); LYMPHOCYTES # (AUTO) 1.9 10^3/uL (1.0-4.0); LYMPHOCYTES % (AUTO) 19 % (12-44); MEAN CORPUSCULAR HEMOGLOBIN 30 pg (25-34); MEAN CORPUSCULAR HGB CONC 33 g/dL (32-36); MEAN CORPUSCULAR VOLUME 90 fL (80-99); MEAN PLATELET VOLUME 10.2 fL (9.0-12.2); MONOCYTES # (AUTO) 0.7 10^3/uL (0.0-1.0); MONOCYTES % (AUTO) 7 % (0-12); NEUTROPHILS # (AUTO) 7.2 10^3/uL (1.8-7.8); NEUTROPHILS % (AUTO) 71 % (42-75); PLATELET COUNT 644 10^3/uL (130-400); WHITE BLOOD COUNT 10.1 10^3/uL (4.3-11.0)
[2023-02-27] MEDS: HYDROcodone/APAP 5 MG/325 MG (LORTAB) TAB PO PRN ×5 (04:33→20:44)
[2023-02-27 04:46] LABS: ALBUMIN 2.2 GM/DL (3.2-4.5); POTASSIUM 3.9 MMOL/L (3.6-5.0)
[2023-02-27 04:48] LABS: CALCIUM 7.8 MG/DL (8.5-10.1)
[2023-02-27 04:49] LABS: TOTAL PROTEIN 6.2 GM/DL (6.4-8.2)
[2023-02-27 04:51] LABS: BILIRUBIN,TOTAL 0.3 MG/DL (0.1-1.0)
[2023-02-27 04:52] LABS: CREATININE SERUM 0.81 MG/DL (0.60-1.30)
[2023-02-27 04:55] LABS: MAGNESIUM 1.9 MG/DL (1.6-2.4)
[2023-02-27 05:00] LABS: HEMOGLOBIN 6.9 g/dL (11.5-16.0)
[2023-02-27] MEDS: POTASSIUM CL 10MEQ/50ML IVPB 50 ML IV SCH (05:18)
[2023-02-27] MEDS: MAGNESIUM 1 GM/100 ML IVPB 100 ML IV SCH ×2 (05:22→06:06)
[2023-02-27] MEDS: KCL 20 MEQ TAB (K-DUR) PO SCH (05:22)
[2023-02-27] MEDS: CYANOCOBALAMIN 1,000 MCG (VITAMIN B-12) TABLET PO SCH (06:06)
--- NOTE | 2023-02-27 06:28 | Progress Note - Hospitalist ---
Subjective HPI/CC On Admission Date Seen by Provider: Feb 27, 2023 Time Seen by Provider: 11:00 Patient is a 48 year old female with history of diverticulosis and tendonitis who presented to the ED last night for LLQ abd pain radiating into her back. She reports being diagnosed with the flu on january 30 that caused her to be mostly bed ridden. She began to experience LLQ abd pain a week ago that has gradually worsened, She describes it as sharp in nature. She reports having a small BM yesterday with no blood. In the ED she was found to be tachycardic w/ mild leukocytosis, anion gap metabolic acidosis, hyponatrema, and hypokalemia. Toxicology was positive for canabinoids which patient endorses trying 2 weeks ago in [place]. CT imaging in the ED revealed sigmoid diverticulitis w/ 3.2x4.6cm abscess adjacent to inflamed bowel. Subjective/Events-last exam No major issues Transfusion indicated today No falls Moving around well Wound vac in place Review of Systems General: Fatigue, Malaise Objective Exam Vital Signs Vital Signs Date Time Temp Pulse Resp B/P (MAP) Pulse Ox O2 Delivery O2 Flow Rate FiO2 02/27/23 13:49 36.6 96 16 123/58 Room Air 02/27/23 11:18 98 02/25/23 15:01 21 02/24/23 15:01 0.00 Capillary Refill : Less Than 3 Seconds General Appearance: No Apparent Distress, WD/WN, Chronically ill Respiratory: Lungs Clear, Normal Breath Sounds Cardiovascular: Regular Rate, Rhythm Neurologic/Psychiatric: Alert, Oriented x3, No Motor/Sensory Deficits, Normal Mood/Affect Results/Procedures Lab Laboratory Tests 02/27/23 04:27 Patient resulted labs reviewed. Imaging: Reviewed Imaging Films Assessment/Plan Assessment and Plan Assess & Plan/Chief Complaint Assess & Plan/Chief Complaint Day 11 S/P Colectomy w/ end ileostomy, appendectomy, and omentectomy -Continue abx w/ adjustments as below. Control pain. Encourage mobility as tolerated. -Soft diets and advance as able. -Wound vac in place. Wound care helping manage. Surgery following. -Monitor labs Anemia -(02/21) Hgb 6.9 today. 1 unit pRBC given -(02/22) Hgb 9.1 S/P 1 unit pRBC. Large increase indicates there may have been a dilutional compnent involved. Will monitor. -(02/23) Hgb 7.8 today. Will monitor to ensure it doesn't drop further tomorrow and work up as needed if so. -(02/24) Hgb 7.7 today. Appears stabilized. Continue to monitor -(02/27) Hgb 6.9 today so ordered 1 unit RLL Pleural Effusion and/or pneumonia -02/22 CXR -> New bibasilar opacities, right > Left, with combination of effusion w/ atelectasis , infiltrate, and/or edema. Cardiac enlargement appearin g more prominent. -Abx switched from Ceftriaxone 1g Q24hr & Metronidazole 0.5g Q12hr --> Vancomycin 1.25g IV Q12hr & Meropenem 500mg Q6hr IV for pneumonia coverage. Continue Neb breathing treatments. -Patient received Lasix 10mg IV once on 02/20 and once on 02/21. 40mg Lasix IV given 02/23 --> 2.4L negative following. -(02/24) - CXR appears rather unchanged. Will continue abx and lasix. Will continue to assess need for thoracentesis if Patients breathing worsens or CXR worsens. -(02/25) - Patient continues to have improved breathing and energy w/ abx and lasix. Will continue for now as she still has significant peripheral edema and encourage good protein intake. She does still have significant decreased breath sound in RLL versus LLL. -Monitor vitals and if SOB worsens or patient begins to need supplemental oxygen then will consider ultrasound to assess need for thoracentesis to drain fluid. Sepsis 2nd to diverticulitis w/ abscess -Pt met SIRS criteria with tachycardia, leukocytosis, and suspsected source of infection -02/10 CT revealed sigmoid diverticulitis with 3.2x4.6cm abscess adjacent to inflamed bowel. Leukocytosis -(02/22):WBC 18.6 today, increased from 15.7 yesterday. Pt. had increased SOB and cough overnight and new Right UQ/lower chest pain following in the setting of increased WBC. Will order CXR to rule out pneumonia vs. pleural effusion vs. pneumo. -(02/23): CXR results as above. Abx initiated. WBC today 18.1. Monitor. -(02/24): continues to have RLL and/or pneumonia. WBC today 15.9. Monitor. -(02/25): WBC 14.1. Overall condition seems to be improving. Hypokalemia -3.7 today. appears resolved. Will continue to monitor. Metabolic acidosis w/ high anion gap -resolved Hyponatremia -Improved after IVF. Monitor Diet: soft diet DVT Proph: ALETHEA Faulkner DO Feb 27, 2023 06:28
[2023-02-27] MEDS ORDERED: NS IV 500 ML 500 ML IV SCH (06:30)
[2023-02-27] MEDS: PANTOPRAZOLE 40 MG (PROTONIX) VIAL IV SCH (08:08)
[2023-02-27] MEDS: NYSTATIN ORAL SUSP 5 ML UDC PO SCH ×4 (08:08→19:58)
[2023-02-27] MEDS: fluCOnazole (DIFLUCAN) 100 MG TAB PO SCH (08:08)
[2023-02-27] MEDS: KCL 8 MEQ (MICRO K) TABLET PO SCH ×2 (08:08→16:54)
[2023-02-27] MEDS ORDERED: KCL 20 MEQ TAB (K-DUR) PO ONE (09:00)
--- NOTE | 2023-02-27 09:56 | Progress Note ---
Subjective Date Seen by a Provider: Feb 27, 2023 Time Seen by a Provider: 09:50 Subjective/Events-last exam Patient seen with Dr. Rucker. Patient reports doing well. Does report some incisional discomfort. Colostomy functioning with no blood. Tolerating diet and ambulating. Objective Exam Vital Signs Date Time Temp Pulse Resp B/P (MAP) Pulse Ox O2 Delivery O2 Flow Rate FiO2 02/27/23 08:21 36.4 100 18 120/59 (79) 95 Room Air 02/27/23 08:00 Room Air 02/27/23 06:56 93 Room Air 02/27/23 04:00 36.9 99 18 121/73 (89) 95 Room Air 02/27/23 02:25 96 Room Air 02/27/23 00:14 37.3 107 18 124/75 (91) 95 Room Air 02/26/23 21:35 99 Room Air 02/26/23 20:58 Room Air 02/26/23 19:54 37.8 94 18 123/62 (82) 96 Room Air 02/26/23 18:31 93 Room Air 02/26/23 17:00 90 18 02/26/23 16:05 37.8 113 18 125/62 (83) 95 Room Air 02/26/23 14:34 97 Room Air 02/26/23 11:23 36.6 101 18 116/62 (80) 94 Room Air 02/26/23 10:37 97 Room Air I & O 02/27/23 07:00 Intake Total 4300 ml Output Total 3300 ml Balance 1000 ml Capillary Refill : Less Than 3 Seconds General Appearance: No Apparent Distress, WD/WN Neck: Supple Respiratory: No Accessory Muscle Use, No Respiratory Distress Gastrointestinal: normal bowel sounds, soft, tenderness, other (Left colostomy functioning with brown stool in bag. Mid abdominal incision with wound vac in place and no signs of infection.) Extremity: Normal Range of Motion, Swelling (1+ bilateral) Neurologic/Psychiatric: Alert, Oriented x3 Skin: Normal Color, Warm/Dry Results Lab Laboratory Tests 02/27/23 04:27: White Blood Count 10.1, Red Blood Count 2.33L, Hemoglobin 6.9*L, Hematocrit 21L, Mean Corpuscular Volume 90, Mean Corpuscular Hemoglobin 30, Mean Corpuscular Hemoglobin Concent 33, Red Cell Distribution Width 15.2H, Platelet Count 644H, Mean Platelet Volume 10.2, Immature Granulocyte % (Auto) 2, Neutrophils (%) (Auto) 71, Lymphocytes (%) (Auto) 19, Monocytes (%) (Auto) 7, Eosinophils (%) (Auto) 1, Basophils (%) (Auto) 1, Neutrophils # (Auto) 7.2, Lymphocytes # (Auto) 1.9, Monocytes # (Auto) 0.7, Eosinophils # (Auto) 0.1, Basophils # (Auto) 0.1, Immature Granulocyte # (Auto) 0.2H, Sodium Level 136, Potassium Level 3.9, Chloride Level 103, Carbon Dioxide Level 24, Anion Gap 9, Blood Urea Nitrogen 1 1, Creatinine 0.81, Estimat Glomerular Filtration Rate 91, BUN/Creatinine Ratio 14, Glucose Level 101, Calcium Level 7.8L, Corrected Calcium 9.2, Magnesium Level 1.9, Total Bilirubin 0.3, Aspartate Amino Transf (AST/SGOT) 20, Alanine A minotransferase (ALT/SGPT) 14, Alkaline Phosphatase 59, Total Protein 6.2L, Albumin 2.2L Microbiology 02/22/23 Blood Culture - Preliminary, Resulted No growth 02/15/23 MRSA Screen - Final, Complete MRSA not isolated 02/11/23 Gram Stain - Final, Complete 02/11/23 Anaerobic Culture - Final, Complete Bacteroides ovatus 02/11/23 Surgical Culture - Final, Complete Escherichia coli Mixed Bacterial Roberta See Comments 02/10/23 Urine Culture - Final, Complete Lactobacillus species Assessment/Plan Assessment/Plan Assess & Plan/Chief Complaint S/P partial Colectomy - Sloan's Procedure with end Colostomy WBC 10.1today Pneumonia + right pleural effusion Anemia Continue pain management, currently well controlled tolerating regular diet continued on PNA Abx regimen current Hgb today is 6.9 give iron and transfuse if Hgb drops below 7 - 1 unit PRBCs ordered IS Cough and deep breath Continue on lasix and leg wraps + ambulation MIKE DIAZ SAT MATH TUTOR Feb 27, 2023 09:56
[2023-02-27] MEDS: ENOXAPARIN 40 MG/0.4 ML (LOVENOX) SYR SC SCH (12:22)
[2023-02-28] VITALS (7 sets, daily range): BP systolic 123–135; BP diastolic 63–78
[2023-02-28] MEDS: HYDROcodone/APAP 5 MG/325 MG (LORTAB) TAB PO PRN ×5 (03:08→19:26)
[2023-02-28 04:45] LABS: BASOPHILS # (AUTO) 0.1 10^3/uL (0.0-0.1); BASOPHILS % (AUTO) 1 % (0-10); EOSINOPHILS # (AUTO) 0.2 10^3/uL (0.0-0.3); EOSINOPHILS % (AUTO) 2 % (0-10); HEMATOCRIT 25 % (35-52); HEMOGLOBIN 8.3 g/dL (11.5-16.0); LYMPHOCYTES # (AUTO) 1.7 10^3/uL (1.0-4.0); LYMPHOCYTES % (AUTO) 16 % (12-44); MEAN CORPUSCULAR HEMOGLOBIN 30 pg (25-34); MEAN CORPUSCULAR HGB CONC 34 g/dL (32-36); MEAN CORPUSCULAR VOLUME 88 fL (80-99); MONOCYTES # (AUTO) 0.7 10^3/uL (0.0-1.0); MONOCYTES % (AUTO) 7 % (0-12); NEUTROPHILS # (AUTO) 7.7 10^3/uL (1.8-7.8); NEUTROPHILS % (AUTO) 73 % (42-75); PLATELET COUNT 662 10^3/uL (130-400); WHITE BLOOD COUNT 10.5 10^3/uL (4.3-11.0)
[2023-02-28 04:53] LABS: ALBUMIN 2.3 GM/DL (3.2-4.5); POTASSIUM 3.9 MMOL/L (3.6-5.0)
[2023-02-28 04:54] LABS: CALCIUM 8.1 MG/DL (8.5-10.1)
[2023-02-28 04:56] LABS: TOTAL PROTEIN 6.7 GM/DL (6.4-8.2)
[2023-02-28 04:57] LABS: BILIRUBIN,TOTAL 0.3 MG/DL (0.1-1.0)
[2023-02-28 04:59] LABS: CREATININE SERUM 0.85 MG/DL (0.60-1.30)
[2023-02-28] MEDS: POTASSIUM CL 10MEQ/50ML IVPB 50 ML IV SCH (05:26)
[2023-02-28] MEDS: MAGNESIUM 1 GM/100 ML IVPB 100 ML IV SCH (05:26)
[2023-02-28] MEDS: KCL 20 MEQ TAB (K-DUR) PO SCH (05:26)
[2023-02-28] MEDS: CYANOCOBALAMIN 1,000 MCG (VITAMIN B-12) TABLET PO SCH (05:38)
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
[2023-02-28] MEDS: RT-ALBUTEROL/IPRATROPIUM 3 ML (DUONEB) VIAL INH SCH ×2 (07:28→21:28)
[2023-02-28] MEDS: NYSTATIN ORAL SUSP 5 ML UDC PO SCH ×4 (08:02→19:26)
[2023-02-28] MEDS: PANTOPRAZOLE 40 MG (PROTONIX) VIAL IV SCH (08:02)
[2023-02-28] MEDS: fluCOnazole (DIFLUCAN) 100 MG TAB PO SCH (08:02)
[2023-02-28] MEDS: KCL 8 MEQ (MICRO K) TABLET PO SCH ×2 (08:02→17:45)
[2023-02-28] MEDS ORDERED: KCL 20 MEQ TAB (K-DUR) PO ONE (09:00)
[2023-02-28] MEDS: ENOXAPARIN 40 MG/0.4 ML (LOVENOX) SYR SC SCH (12:01)
--- NOTE | 2023-02-28 12:10 | Progress Note ---
Subjective Subjective/Events-last exam Pt states she is having her vac changed tomorrow, going home in a couple of days, just talked to Surgeon. States pain is manageable with medication. Objective Exam Last Set of Vital Signs Vital Signs Date Time Temp Pulse Resp B/P (MAP) Pulse Ox O2 Delivery O2 Flow Rate FiO2 02/28/23 12:01 36.9 96 19 129/65 (86) 98 Room Air 02/25/23 15:01 21 02/24/23 15:01 0.00 Capillary Refill : Less Than 3 Seconds I&O Intake and Output 02/27/23 23:59 Intake Total 3550 ml Output Total 4250 ml Balance -700 ml Intake Oral 2900 ml IV Total 650 ml Other 0 ml Output Urine Total 3800 ml Stool Total 450 ml General: Alert, No Acute Distress Lungs: Clear to Auscultation, Normal Air Movement Heart: Regular Rate, No Murmurs Abdomen: Normal Bowel Sounds Neuro: Normal Speech Psych/Mental Status: Mood NL Results/Procedures Lab Laboratory Tests 02/28/23 04:40: White Blood Count 10.5, Red Blood Count 2.80L, Hemoglobin 8.3#L, Hematocrit 25L, Mean Corpuscular Volume 88, Mean Corpuscular Hemoglobin 30, Mean Corpuscular Hemoglobin Concent 34, Red Cell Distribution Width 14.8H, Platelet Count 662H, Mean Platelet Volume 10.0, Immature Granulocyte % (Auto) 1, Neutrophils (%) (Auto) 73, Lymphocytes (%) (Auto) 16, Monocytes (%) (Auto) 7, Eosinophils (%) (Auto) 2, Basophils (%) (Auto) 1, Neutrophils # (Auto) 7.7, Lymphocytes # (Auto) 1.7, Monocytes # (Auto) 0.7, Eosinophils # (Auto) 0.2, Basophils # (Auto) 0.1, Immature Granulocyte # (Auto) 0.1, Sodium Level 135, Potassium Level 3.9, Chloride Level 102, Carbon Dioxide Level 22, Anion Gap 11, Blood Urea Nitrogen 14, Creatinine 0.85, Estimat Glomerular Filtration Rate 86, BUN/Creatinine Ratio 16, Glucose Level 103, Calcium Level 8.1L, Corrected Calcium 9.5, Magnesium Level 2.0, Total Bilirubin 0.3, Aspartate Amino Transf (AST/SGOT) 19, Alanine Am inotransferase (ALT/SGPT) 16, Alkaline Phosphatase 64, Total Protein 6.7, Albumin 2.3L Microbiology 02/22/23 Blood Culture - Final, Complete No growth 02/15/23 MRSA Screen - Final, Complete MRSA not isolated 02/11/23 Gram Stain - Final, Complete 02/11/23 Anaerobic Culture - Final, Complete Bacteroides ovatus 02/11/23 Surgical Culture - Final, Complete Escherichia coli Mixed Bacterial Roberta See Comments 02/10/23 Urine Culture - Final, Complete Lactobacillus species Radiology Date of Exam:02/10/23 CT ABDOMEN/PELVIS W EXAMINATION: CT abdomen and pelvis with intravenous contrast. TECHNIQUE: Multiple contiguous axial images were obtained through the abdomen and pelvis after the uneventful administration of intravenous contrast. All CT scans use one or more of the following dose optimizing techniques: automated exposure control, MA and/or KvP adjustment based on patient size and exam type or iterative reconstruction. HISTORY: Left lower quadrant pain COMPARISON: None available. FINDINGS: Limited views of the lower thorax are unremarkable. The liver is normal without focal lesion. There is no biliary ductal dilation. Gallbladder is normal. Pancreas is normal. Spleen is normal. Adrenal glands are normal. The kidneys are normal. There is no hydronephrosis. Urinary bladder is normal. There is diverticulitis of the sigmoid colon. There is a fluid and gas collection associated with the sigmoid colon wall measuring 3.2 x 4.6 cm in keeping with an abscess. Small amount of free fluid is present. No free intraperitoneal air. The remainder of the bowel is normal. No abdominal or pelvic lymphadenopathy. Aorta is normal in caliber without aneurysm. There are no suspicious osseus lesions. IMPRESSION: 1. Sigmoid diverticulitis with a 3.2 x 4.6 cm abscess adjacent to the inflamed bowel. Dictated by: Dictated on workstation # [id number] Dict: 02/10/232202 Trans: 02/10/232203 [facility] [id number] Interpreted by: FLORINA MOTLEY MD Electronically signed by: FLORINA MOTLEY MD 02/10/232203 Assessment/Plan Assessment/Plan (1) Sepsis Status: Resolved Qualifiers: Qualified Codes: A41.9 - Sepsis, unspecified organism (2) Diverticulitis of intestine with abscess Status: Acute Assessment & Plan: Surgery on 02/[address] Pt doing own ostomy care Qualifiers: Qualified Codes: K57.80 - Diverticulitis of intestine, part unspecified, with perforation and abscess without bleeding (3) Severe protein-calorie malnutrition Status: Acute (4) Hypokalemia Status: Resolved (5) Hyponatremia Status: Resolved (6) Ileostomy in place Status: Acute Assessment & Plan: Placed 02/16/23 KURTIS CRISTOBAL MD Feb 28, 2023 12:10
[2023-02-28] MEDS: LORazepam 0.5 MG (ATIVAN) TABLET PO PRN (20:20)
[2023-03-01] MEDS: HYDROcodone/APAP 5 MG/325 MG (LORTAB) TAB PO PRN ×4 (00:02→16:11)
[2023-03-01] MEDS: CYANOCOBALAMIN 1,000 MCG (VITAMIN B-12) TABLET PO SCH (05:07)
[2023-03-01 05:17] LABS: BASOPHILS # (AUTO) 0.1 10^3/uL (0.0-0.1); BASOPHILS % (AUTO) 1 % (0-10); EOSINOPHILS # (AUTO) 0.2 10^3/uL (0.0-0.3); EOSINOPHILS % (AUTO) 2 % (0-10); HEMATOCRIT 25 % (35-52); HEMOGLOBIN 8.2 g/dL (11.5-16.0); LYMPHOCYTES % (AUTO) 22 % (12-44); MEAN CORPUSCULAR HEMOGLOBIN 29 pg (25-34); MEAN CORPUSCULAR HGB CONC 33 g/dL (32-36); MEAN CORPUSCULAR VOLUME 88 fL (80-99); MEAN PLATELET VOLUME 9.7 fL (9.0-12.2); MONOCYTES # (AUTO) 0.6 10^3/uL (0.0-1.0); MONOCYTES % (AUTO) 6 % (0-12); NEUTROPHILS # (AUTO) 6.1 10^3/uL (1.8-7.8); NEUTROPHILS % (AUTO) 68 % (42-75); PLATELET COUNT 698 10^3/uL (130-400)
[2023-03-01 05:27] LABS: ALBUMIN 2.4 GM/DL (3.2-4.5); POTASSIUM 3.9 MMOL/L (3.6-5.0)
[2023-03-01 05:28] LABS: CALCIUM 8.3 MG/DL (8.5-10.1)
[2023-03-01 05:29] LABS: TOTAL PROTEIN 6.7 GM/DL (6.4-8.2)
[2023-03-01 05:31] LABS: BILIRUBIN,TOTAL 0.3 MG/DL (0.1-1.0)
[2023-03-01 05:33] LABS: CREATININE SERUM 0.81 MG/DL (0.60-1.30)
[2023-03-01] MEDS: POTASSIUM CL 10MEQ/50ML IVPB 50 ML IV SCH (05:47)
[2023-03-01] MEDS: KCL 20 MEQ TAB (K-DUR) PO SCH (05:48)
[2023-03-01] MEDS: MAGNESIUM 1 GM/100 ML IVPB 100 ML IV SCH ×3 (06:16→07:32)
[2023-03-01] MEDS: RT-ALBUTEROL/IPRATROPIUM 3 ML (DUONEB) VIAL INH SCH (07:29)
[2023-03-01] MEDS: NYSTATIN ORAL SUSP 5 ML UDC PO SCH ×3 (07:32→17:33)
[2023-03-01] MEDS: KCL 8 MEQ (MICRO K) TABLET PO SCH ×2 (07:32→17:33)
[2023-03-01] MEDS: fluCOnazole (DIFLUCAN) 100 MG TAB PO SCH (07:33)
[2023-03-01 07:48] VITALS: BP 127/80
--- NOTE | 2023-03-01 08:08 | Progress Note - Surgery ---
ISAURO MENDEZ 03/01/23 0808: Subjective Date Seen by a Provider: Mar 01, 2023 Time Seen by a Provider: 07:30 Subjective/Events-last exam Pt was eating breakfast sitting up in her chair, she has no new symptoms/complaints. She mentioned that her wound vac stopped having suction, and that the wound care team was coming today to change it out. She brought up concerns about still having some fevers during the night, but she says they are managed well with tylenol in her pain meds. She is otherwise doing well and just waiting to hear back about the status of her leaving with a portable wound vac. She denies n/v/d, chest pain, dizziness, muscle pains, throat pain, or chills. + fever last night, anxiety, and abd tenderness along left side of incision. Review of Systems General: No Chills, No Night Sweats, No Fatigue, No Malaise HEENT: Head Aches (says its sinus congestion pressure); No Visual Changes, No Dysphasia; Sinus Congestion; No Sore Throat Pulmonary: No Dyspnea, No Cough, No Pleuritic Chest Pain Cardiovascular: No: Chest Pain, Palpitations, Edema, Lt Headedness Gastrointestinal: Abdominal Pain (tender along left side of surgery incision, right sided pain reported as nearly resolved /); No: Nausea, Vomiting, Constipation, Melena, Hematochezia Genitourinary: No Dysuria, No Frequency, No Incontinence, No Hematuria, No Retention Musculoskeletal: No: other, neck pain, shoulder pain, arm pain, back pain, hand pain, leg pain, foot pain Neurological: No: Weakness, Numbness, Change in speech, Confusion Objective Exam Vital Signs Date Time Temp Pulse Resp B/P (MAP) Pulse Ox O2 Delivery O2 Flow Rate FiO2 03/01/23 07:48 36.5 95 18 127/80 (96) 95 Room Air 03/01/23 07:40 Room Air 03/01/23 07:29 95 Room Air 0.00 02/28/23 23:59 37.0 97 18 123/64 (83) 95 Room Air 02/28/23 21:29 97 Room Air 02/28/23 19:30 Room Air 02/28/23 19:14 37.5 98 19 131/63 (85) 100 Room Air 02/28/23 15:19 36.9 98 19 129/74 (92) 94 Room Air 02/28/23 12:01 36.9 96 19 129/65 (86) 98 Room Air 02/28/23 08:05 36.8 108 20 135/69 (91) 97 Room Air I & O 03/01/23 07:00 Intake Total 2884 ml Output Total 4100 ml Balance -1216 ml Capillary Refill : Less Than 3 Seconds General Appearance: No Apparent Distress, WD/WN, Anxious HEENT: PERRL/EOMI, Moist Mucous Membranes, Pharyngeal Erythema; No Photophobia, No Scleral Icterus (L), No Scleral Icterus (R), No Tonsillar Exudate, No Tonsillar Enlargement Neck: Full Range of Motion, Non Tender, Supple; No Lymphadenopathy (L), No Lymphadenopathy (R) Respiratory: Chest Non Tender, No Accessory Muscle Use, No Respiratory Distress; No Crackles; Decreased Breath Sounds (right lower lobe); No Rales Cardiovascular: Regular Rate, Rhythm, No Edema, No Murmur Peripheral Pulses: 2+ Dorsalis Pedis (R), 2+ Left Dors-Pedis (L), 2+ Radial Pulses (R), 2+ Radial Pulses (L) Gastrointestinal: soft; No distended, No guarding; tenderness (LUQ/LLQ 1-2/10), other (ostomy pink and functioning. incision with wound vac in place(no functional suction coming from wound vac during exam) and no signs of infection.) Extremity: No Calf Tenderness, No Pedal Edema; No Inflammation Neurologic/Psychiatric: Alert, Oriented x3; No Facial Droop Skin: Warm/Dry; No Diaphoresis, No Erythema, No Jaundice, No Rash Lymphatic: No Adenopathy (cervical) Results Lab Laboratory Tests 02/28/23 12:28: Lab Scanned Report Transfusion Reaction Form 03/01/23 05:10: White Blood Count 9.0, Red Blood Count 2.85L, Hemoglobin 8.2L, Hematocrit 25L, Mean Corpuscular Volume 88, Mean Corpuscular Hemoglobin 29, Mean Corpuscular Hemoglobin Concent 33, Red Cell Distribution Width 14.6H, Platelet Count 698H, Mean Platelet Volume 9.7, Immature Granulocyte % (Auto) 2, Neutrophils (%) (Auto) 68, Lymphocytes (%) (Auto) 22, Monocytes (%) (Auto) 6, Eosinophils (%) (Auto) 2, Basophils (%) (Auto) 1, Neutrophils # (Auto) 6.1, Lymphocytes # (Auto) 2.0, Monocytes # (Auto) 0.6, Eosinophils # (Auto) 0.2, Basophils # (Auto) 0.1, Immature Granulocyte # (Auto) 0.1, Sodium Level 136, Potassium Level 3.9, Chloride Level 103, Carbon Dioxide Level 24, Anion Gap 9, Blood Urea Nitrogen 17, Creatinine 0.81, Estimat Glomerular Filtration Rate 91, BUN/Creatinine Ratio 21, Glucose Level 98, Calcium Level 8.3L, Corrected Calcium 9.6, Magnesium Level 1.9, Total Bilirubin 0.3, Aspartate Amino Transf (AST/SGOT) 23, Alanine Aminotransferase (ALT/SGPT) 18, Alkaline Phosphatase 72, Total Protein 6.7, Albumin 2.4L Microbiology 02/22/23 Blood Culture - Final, Complete No growth 02/15/23 MRSA Screen - Final, Complete MRSA not isolated 02/11/23 Gram Stain - Final, Complete 02/11/23 Anaerobic Culture - Final, Complete Bacteroides ovatus 02/11/23 Surgical Culture - Final, Complete Escherichia coli Mixed Bacterial Roberta See Comments 02/10/23 Urine Culture - Final, Complete Lactobacillus species Assessment/Plan Assessment/Plan Assessment/Plan S/P partial Colectomy - Sloan's Procedure with end Colostomy Pneumonia + right pleural effusion - possibly improved from 02/22 Anemia * pain management well controlled on oral meds * current Hgb today is 8.2 * Encourage IS, cough and deep breath * leg wraps + ambulation * D/C today if we have portable wound VAC * f/u 1 week in clinic after D/C EDUARDO DE OLIVEIRA DO 03/01/23 1020: Subjective Time Seen by a Provider: 09:21 Subjective/Events-last exam Pt seen and examined, she was getting VAC change when I walked in. She had no other complaints, but was having pain when taking sponge out. She states she would like to go home, feeling stronger. Review of Systems General: No Chills, No Night Sweats HEENT: Head Aches (says its sinus congestion pressure) Pulmonary: No Dyspnea, No Cough Cardiovascular: No: Chest Pain, Palpitations Gastrointestinal: Abdominal Pain (tender along left side of surgery incision, right sided pain reported as nearly resolved 1/10) Objective Exam General Appearance: No Apparent Distress, WD/WN, Anxious HEENT: PERRL/EOMI, Moist Mucous Membranes Respiratory: Chest Non Tender, No Accessory Muscle Use, No Respiratory Distress; No Crackles; Decreased Breath Sounds (right lower lobe) Cardiovascular: Regular Rate, Rhythm, No Edema, No Murmur Gastrointestinal: soft; No distended, No guarding; tenderness (LUQ/LLQ 1-12/17), other (ostomy pink and functioning. incision with wound vac in place(no functional suction coming from wound vac during exam) and no signs of infection.) Neurologic/Psychiatric: Alert, Oriented x3 Assessment/Plan Assessment/Plan Assessment/Plan S/P partial Colectomy - Sloan's Procedure with end Colostomy Pneumonia + right pleural effusion - possibly improved from 02/22 Anemia * pain management well controlled on oral meds * current Hgb today is 8.2 * Encourage IS, cough and deep breath * leg wraps + ambulation * D/C today if we have portable wound VAC * f/u 1 week in clinic after D/C Thrombocytosis - will monitor, most likely due to anemia and inflammation. Check labs as outpt, may need Hematology consult as outpt. Supervisory-Addendum Brief Verification & Attestation Participated in pt care: history, MDM, physical Personally performed: exam, history, MDM, supervision of care Care discussed with: Medical Student Procedures: n/a Verification and Attestation of Medical Student E/M Service A medical student performed and documented this service. I then reviewed and verified all information documented by the medical student and made modifications to such information, when appropriate. I personally performed a physical exam, medical decision making and then discussed any differences between the notes and made revisions as necessary to create one note. Eduardo De Oliveira , 03/01/23 , 10:20 ISAURO MENDEZ Mar 01, 2023 08:08 EDUARDO DE OLIVEIRA DO Mar 01, 2023 10:20
[2023-03-01] MEDS ORDERED: KCL 20 MEQ TAB (K-DUR) PO ONE (09:00)
[2023-03-01] MEDS ORDERED: PANTOPRAZOLE 40 MG (PROTONIX) TAB PO SCH (09:00)
[2023-03-01] MEDS: LORazepam 0.5 MG (ATIVAN) TABLET PO PRN (09:34)
[2023-03-01] MEDS: ENOXAPARIN 40 MG/0.4 ML (LOVENOX) SYR SC SCH (11:37)
--- NOTE | 2023-03-01 15:26 | Progress Note ---
Subjective Subjective/Events-last exam Pt walking in room, states getting ready to change ostomy, says she is feeling well and denies concerns. Objective Exam Last Set of Vital Signs Vital Signs Date Time Temp Pulse Resp B/P (MAP) Pulse Ox O2 Delivery O2 Flow Rate FiO2 03/01/23 07:48 36.5 95 18 127/80 (96) 95 Room Air 03/01/23 07:29 0.00 02/25/23 15:01 21 Capillary Refill : Less Than 3 Seconds I&O Intake and Output 03/01/23 00:00 Intake Total 2684 ml Output Total 4500 ml Balance -1816 ml Intake Oral 2684 ml Output Urine Total 3800 ml Stool Total 700 ml General: Alert, No Acute Distress Psych/Mental Status: Mood NL Results/Procedures Lab Laboratory Tests 03/01/23 05:10: White Blood Count 9.0, Red Blood Count 2.85L, Hemoglobin 8.2L, Hematocrit 25L, Mean Corpuscular Volume 88, Mean Corpuscular Hemoglobin 29, Mean Corpuscular Hemoglobin Concent 33, Red Cell Distribution Width 14.6H, Platelet Count 698H, Mean Platelet Volume 9.7, Immature Granulocyte % (Auto) 2, Neutrophils (%) (Auto) 68, Lymphocytes (%) (Auto) 22, Monocytes (%) (Auto) 6, Eosinophils (%) (Auto) 2, Basophils (%) (Auto) 1, Neutrophils # (Auto) 6.1, Lymphocytes # (Auto) 2.0, Monocytes # (Auto) 0.6, Eosinophils # (Auto) 0.2, Basophils # (Auto) 0.1, Immature Granulocyte # (Auto) 0.1, Sodium Level 136, Potassium Level 3.9, Chloride Level 103, Carbon Dioxide Level 24, Anion Gap 9, Blood Urea Nitrogen 17, Creatinine 0.81, Estimat Glomerular Filtration Rate 91, BUN/Creatinine Ratio 21, Glucose Level 98, Calcium Level 8.3L, Corrected Calcium 9.6, Magnesium Level 1.9, Total Bilirubin 0.3, Aspartate Amino Transf (AST/SGOT) 23, Alanine Aminotransferase (ALT/SGPT) 18, Alkaline Phosphatase 72, Total Protein 6.7, Albumin 2.4L Microbiology 02/22/23 Blood Culture - Final, Complete No growth 02/15/23 MRSA Screen - Final, Complete MRSA not isolated 02/11/23 Gram Stain - Final, Complete 02/11/23 Anaerobic Culture - Final, Complete Bacteroides ovatus 02/11/23 Surgical Culture - Final, Complete Escherichia coli Mixed Bacterial Roberta See Comments 02/10/23 Urine Culture - Final, Complete Lactobacillus species Radiology Date of Exam:02/10/23 CT ABDOMEN/PELVIS W EXAMINATION: CT abdomen and pelvis with intravenous contrast. TECHNIQUE: Multiple contiguous axial images were obtained through the abdomen and pelvis after the uneventful administration of intravenous contrast. All CT scans use one or more of the following dose optimizing techniques: automated exposure control, MA and/or KvP adjustment based on patient size and exam type or iterative reconstruction. HISTORY: Left lower quadrant pain COMPARISON: None available. FINDINGS: Limited views of the lower thorax are unremarkable. The liver is normal without focal lesion. There is no biliary ductal dilation. Gallbladder is normal. Pancreas is normal. Spleen is normal. Adrenal glands are normal. The kidneys are normal. There is no hydronephrosis. Urinary bladder is normal. There is diverticulitis of the sigmoid colon. There is a fluid and gas collection associated with the sigmoid colon wall measuring 3.2 x 4.6 cm in keeping with an abscess. Small amount of free fluid is present. No free intraperitoneal air. The remainder of the bowel is normal. No abdominal or pelvic lymphadenopathy. Aorta is normal in caliber without aneurysm. There are no suspicious osseus lesions. IMPRESSION: 1. Sigmoid diverticulitis with a 3.2 x 4.6 cm abscess adjacent to the inflamed bowel. Dictated by: Dictated on workstation # [id number] Dict: 02/10/232202 Trans: 02/10/232203 [facility] [id number] Interpreted by: FLORINA MOTLEY MD Electronically signed by: FLORINA MOTLEY MD 02/10/232203 Assessment/Plan Assessment/Plan (1) Sepsis Status: Resolved Qualifiers: Qualified Codes: A41.9 - Sepsis, unspecified organism (2) Diverticulitis of intestine with abscess Status: Acute Assessment & Plan: Surgery on 02/[address] Pt doing own ostomy care Qualifiers: Qualified Codes: K57.80 - Diverticulitis of intestine, part unspecified, with perforation and abscess without bleeding (3) Severe protein-calorie malnutrition Status: Acute (4) Hypokalemia Status: Resolved (5) Hyponatremia Status: Resolved (6) Ileostomy in place Status: Acute Assessment & Plan: Placed 02/16/23 KURTIS CRISTOBAL MD Mar 01, 2023 15:26
[2023-03-01 16:00] VITALS: BP 126/75
[2023-03-01] MEDS ORDERED: FERR236T3 PO (16:21)
[2023-03-01] MEDS ORDERED: ACHD5005 PO (16:21)
[2023-03-01] MEDS ORDERED: Lorazepam PO (16:21)
--- NOTE | 2023-03-01 16:23 | Discharge Inst-Surgical ---
Discharge Inst-Surgical Depart Medication/Instructions New, Converted or Re-Newed RX: Transmitted to Pharmacy Patient Instructions Follow up Appt: Make appointment for 1 week. [phone] Instructions: No lifting greater than 20 pounds. No strenuous activity. May shower in 24 hours, no tub bath or soaking. Use incentive spirometer at home as directed. No Smoking Skin/Wound Care: Come to clinic on Tuesday and Tuesday to change VAC. Symptoms to Report: Appetite Changes, Extremity Discoloration, Numbness/Tingling, Swelling Increased, Bleeding Excessive, Eyesight Changes, Pain Increased, Urine Color Change, Constipation(Persistent), Fever over 101 degree F, Pain/Pressure in chest, Urinating Difficulty, Cough Up/Vomit Blood, Heart Beat Irreg/Pounding, Pain/Pressure in jaw, Cramps in feet or legs, Lightheadedness, Pain/Pressure in shoulder, Diarrhea(Persistent), Memory Changes Suddenly, Questions/Concerns, Weight gain consecutive days, Dizziness/Fainting, Nausea/Vomiting, Shortness of Breath, Weight gain over 2 pounds If questions or concerns contact your physician Or seek help at emergency department. Activity Activity as Tolerated: Yes Activity Instructions: Avoid Stress to Incision Driving Instructions: No Driving/Refer to Dr. Rothman Discharge Diet: No Restrictions Diet After 24 Hours: Clear Liquid if Nauseous If Any Problems/Questions/Issu: Contact Your Physician, Go to Emergency Room Skin/Wound Care Infection Signs and Symptoms: Increased Redness, Foul Odor of Wound, Increased Drainage, Skin Itchy or Has a Rash, Increased Swelling, Temperature Above 101 F Bathing Instructions: JUSTIN Daugherty DO Mar 01, 2023 16:23
[2023-03-01 18:06] VITALS: BP 126/75
== END 2023-03-01 18:06 | disposition home or self-care (01) | DRG 853 ==
LOC: EDUNIT# 20:38 → ER 20:46 → 4TH 23:18
PROVIDERS: ADMIT Internal Medicine; ATTEND Family Medicine
PROC: 0W9J30Z Drainage of Pelvic Cavity with Drainage Device, Percutaneous Approach (ICD-10-PCS; 2023-02-11)
PROC: 0D1N0Z4 Bypass Sigmoid Colon to Cutaneous, Open Approach (ICD-10-PCS; 2023-02-16)
PROC: 0DTJ0ZZ Resection of Appendix, Open Approach (ICD-10-PCS; 2023-02-16)
PROC: 0DBU0ZZ Excision of Omentum, Open Approach (ICD-10-PCS; 2023-02-16)
PROC: 0WQF0ZZ Repair Abdominal Wall, Open Approach (ICD-10-PCS; 2023-02-16)
PROC: 0DBN0ZZ Excision of Sigmoid Colon, Open Approach (ICD-10-PCS; principal; 2023-02-16 11:31)
DX: A41.51 Sepsis due to Escherichia coli [E. coli] (principal); E43 Unspecified severe protein-calorie malnutrition; K55.049 Acute infarction of large intestine, extent unspecified; J18.9 Pneumonia, unspecified organism; K57.20 Diverticulitis of large intestine with perforation and abscess without bleeding; N39.0 Urinary tract infection, site not specified; E87.20 Acidosis, unspecified; E87.1 Hypo-osmolality and hyponatremia; K37 Unspecified appendicitis; Z20.822 Contact with and (suspected) exposure to COVID-19; K42.9 Umbilical hernia without obstruction or gangrene; E86.0 Dehydration; E87.6 Hypokalemia; E87.8 Other disorders of electrolyte and fluid balance, not elsewhere classified; Z68.29 Body mass index [BMI] 29.0-29.9, adult; E66.9 Obesity, unspecified; D64.9 Anemia, unspecified; F17.210 Nicotine dependence, cigarettes, uncomplicated; F41.9 Anxiety disorder, unspecified; F12.90 Cannabis use, unspecified, uncomplicated; Z89.411 Acquired absence of right great toe
CPT/HCPCS: 36410; 36415; 71045; 74177; 76937; 77012; 80053; 80202; 80306; 80320; 81000; 82150; 82607; 82728; 83540; 83550; 83605; 83690; 83735; 84703; 85007; 85025; 85027; 85610; 85730; 86850; 86900; 86901; 86920; 87040; 87070; 87075; 87076; 87077; 87081; 87088; 87106; 87185; 87186; 87205; 87636; 88302; 88304; 88307; 93041; 94640; 94642; 94664; 94760; 96361; 96365; 96375